=== PATIENT | male | born 1975 | race Two or more races ===

== ENCOUNTER 2020-03-18 08:08 | Outpatient (REF) | payer OTHER, SELFPAY ==
[2020-03-18 10:51] LABS: Alanine Aminotransferase 33 U/L (0-40); Albumin Level 4.5 g/dL (3.5-5.0); Alkaline Phosphatase 72 U/L (39-117); Anion Gap 13 (12-20); Aspartate Amino Transferase 25 U/L (5-37); Bilirubin Total 0.4 mg/dL (0.0-1.0); Blood Urea Nitrogen 17 mg/dL (9-16); Calcium 9.2 mg/dL (8.4-10.2); Carbon Dioxide 29 mmol/L (22-29); Chloride 102 mmol/L (96-108); Cholesterol 111 mg/dL; Estimated Glomerular Filt Rate > 60; Glucose Fasting 100 mg/dL (60-99); HDL Cholesterol 44 mg/dL; LDL Cholesterol Calculated 58 mg/dl; Potassium 4.2 mmol/l (3.3-5.1); Sodium 140 mmol/L (135-145); Total Protein 7.4 g/dL (6.5-8.0); Triglycerides 49 mg/dL
[2020-03-18 10:55] LABS: Vitamin D 25-OH Total 44.6 ng/mL (>30)
[2020-03-18 11:09] LABS: Creatinine Urine 84.64 mg/dL; Microalbum/Creatinine Ratio Ur 8.2 ug/mg cr
== END 2020-03-18 08:09 | disposition home or self-care (01) ==
LOC: HO.LAB 08:08
PROVIDERS: PCP Internal Medicine; Visit Provider Internal Medicine
DX: E78.00 Pure hypercholesterolemia, unspecified (principal); E55.9 Vitamin D deficiency, unspecified; E11.9 Type 2 diabetes mellitus without complications
CPT/HCPCS: 80053; 80061; 82043; 82306

== ENCOUNTER 2020-05-11 12:25 | Outpatient (REF) | payer OTHER, SELFPAY | END 2020-05-11 12:26 | disposition home or self-care (01) | LOC: HO.LAB 12:25 | PROVIDERS: PCP Internal Medicine; Visit Provider Internal Medicine | DX: Z20.822 Contact with and (suspected) exposure to COVID-19 (principal) | CPT/HCPCS: 36415; C9803; U0003 ==

== ENCOUNTER 2020-08-31 11:29 | Outpatient (REF) | payer OTHER, SELFPAY | END 2020-08-31 11:30 | disposition home or self-care (01) | LOC: HO.LAB 11:29 | PROVIDERS: Visit Provider Internal Medicine | DX: Z20.822 Contact with and (suspected) exposure to COVID-19 (principal) | CPT/HCPCS: C9803; U0003; U0005 ==

== ENCOUNTER 2020-09-25 11:03 | Emergency (ER) | payer OTHER, SELFPAY ==
[2020-09-25 11:18] VITALS: BP 141/87; PULSE 96; RESP 18; TEMP 35.9; O2SAT 98; BMI 39.2
--- NOTE | 2020-09-25 11:52 | ED.GENADULT ---
HPI - General Adult General Chief complaint: General Medical Stated complaint: PAIN IN ANUS Time Seen by Provider: 09/25/20 11:52 Source: patient Mode of arrival: ambulatory Limitations: no limitations History of Present Illness HPI narrative: 44 y/o male presenting with hemorrhoidal pain for 6 days. He denies any bleeding. He has tried preparation H without much relief. He has not had a BM in a day and a half an it was painful at the time. His stool was firm. He denies blood streaked stool. He denies abdominal pain, nausea, vomiting. He is passing flatus. MD complaint: hemorrhoids Onset (ago): day(s) (6) Location: buttocks Radiation: non-radiation Severity: moderate Quality: stabbing and sharp Pain Consistency: intermittent Relieving factors: rest Exacerbating factors: other (bowel movement) Associated symptoms: denies other symptoms Treatments prior to arrival: none Related Data Previous Rx's Medication Instructions Recorded albuterol sulfate 90 mcg/actuation 2 puff PO Q6H PRN 30 Days #8.5 g 04/13/20 aerosol inhaler sildenafil 25 mg tablet 25 mg PO DAILY PRN 30 Days #3 tab 06/30/20 pioglitazone 45 mg tablet 45 mg PO DAILY #90 tab 09/12/20 docusate sodium [Colace] 100 mg PO BID #30 cap 09/25/20 hydrocortisone-pramoxine 1 appl MT QID PRN #10 g 09/25/20 [Proctofoam HC] lidocaine 1 appl TOPICAL TID PRN #30 g 09/25/20 polyethylene glycol 3350 [Miralax] 17 g PO DAILY #14 ea 09/25/20 Allergies Allergy/AdvReac Type Severity Reaction Status Date / Time No Known Allergies Allergy Unverified 01/15/20 18:56 [No Known Allergies*] Review of Systems Review of Systems: Constitutional: No Fever, No Chills Gastrointestinal: No Nausea, No Vomiting, No Diarrhea, No abdominal Pain, No Hematochezia, No Melena, +Constipation Genitourinary: No Dysuria, No Urinary Frequency, No Hematuria Musculoskeletal: No joint pain, No Myalgias Skin: + Skin Lesions, No rash Neuro: No Weakness, No Numbness Psych: No Anxiety/Panic, No Depression Heme/Lymph: No Bruising, No Lymphadenopathy PMFSH Past Medical History Attestation statement: The following information was validated with the patient. Medical History Anxiety Diabetes Panic attack Social History Social History Advance Directives: Yes Advance Directives Information Provided: No Advance Directives on File: No Physical Exam Vital Signs: Vital Signs: Last Vital Signs Temp 96.7 F L 09/25/20 11:18 Pulse 96 09/25/20 11:18 Resp 18 09/25/20 11:18 BP 141/87 H 09/25/20 11:18 Pulse Ox 98 09/25/20 11:18 Body Mass Index 39.2 Const: General: cooperative, healthy appearing and comfortable HENMT: Head: Yes normal to inspection Ears: hearing grossly normal bilaterally General nose exam: Normal external nose present Face and sinus: Yes normal facial exam Eyes: General: appearance normal, both eyes and all related structures Neck: Neck: Yes normal visual inspection Chest: Chest palpation & inspection: normal inspection of the chest Resp: Effort & Inspection: normal respiratory effort and able to speak in complete sentences GI: Inspection: Yes normal to inspection and Yes obesity Palpation (GI): Soft to palpation, not firm, nontender and no guarding Percussion: Yes normal to percussion Auscultation: normal bowel sounds Rectal Exam - Male: Yes normal sphincter tone and Yes External hemorrhoid(s) present (tender, no thrombosis, no bleeding) Skin: General skin exam: no rashes or lesions noted Extrem: General: Yes normal to inspection Psych: Appearance: grossly normal and well kempt Course Course Course Narrative: 44 y/o male presenting with hemorrhoidal pain and mild constipation. Exam reveals small external hemorrhoids, tender. No bleeding. Will prescribe proctofoam, topical anesthetic and bowel regimen. Advised on increasing PO hydration and fiber. Encouraged to f/u with PCP and General Sug[facility] if no improvement with conservative measures. Patient is stable for discharge. Discharge Plan Discharge Clinical Impression: Hemorrhoids Qualifiers: Hemorrhoid type: unspecified Qualified Code(s): K64.9 - Unspecified hemorrhoids Patient Disposition: Home, Self-Care Instructions: Hemorrhoids (ED), Sitz Bath (DC) Additional Instructions: Use the prescribed medications for your hemorrhoids. Increase your water and fiber intake. Start Miralax and Colace to help with constipation. Sit in a warm bath with Epsom salts once per day. Recommend following up with General Surgery if you have persistent symptoms. Come back to the ER if you have worsening pain or develop significant bleeding. Prescriptions: New Proctofoam HC 1-1 % foam 1 appl MT QID PRN (Reason: hemorrhoids) Qty: 10 RF: 0 lidocaine 5 % ointment 1 appl topical TID PRN (Reason: pain) Qty: 30 RF: 0 docusate sodium [Colace] 100 mg capsule 100 mg PO BID Qty: 30 RF: 0 polyethylene glycol 3350 [Miralax] 17 gram powder in packet 17 g PO DAILY Qty: 14 RF: 0 No Action albuterol sulfate 90 mcg/actuation HFA aerosol inhaler 2 puff PO Q6H PRN (Reason: bronchospasm) 30 Days Qty: 8.5 RF: 6 sildenafil 25 mg tablet 25 mg PO DAILY PRN (Reason: sexual activity) 30 Days Qty: 3 RF: 3 pioglitazone 45 mg tablet 45 mg PO DAILY Qty: 90 RF: 1 Referrals: Shay Ellison MD [Physician] - 1 week (hemorrhoids )
== END 2020-09-25 12:11 | disposition home or self-care (01) ==
PROVIDERS: Emergency Provider Emergency Medicine Emergency Medical Services; PCP Internal Medicine
DX: K64.9 Unspecified hemorrhoids (principal); K62.89 Other specified diseases of anus and rectum; K59.00 Constipation, unspecified; Z79.899 Other long term (current) drug therapy
CPT/HCPCS: 99283

== ENCOUNTER 2021-04-26 09:23 | Outpatient (REF) | payer OTHER, SELFPAY ==
[2021-04-26 10:44] LABS: COVID-19 Test Negative (Negative); IDNOW Serial# 16C4AD1C
== END 2021-04-26 09:24 | disposition home or self-care (01) ==
LOC: HO.LAB 09:23
PROVIDERS: Visit Provider Internal Medicine
DX: Z20.822 Contact with and (suspected) exposure to COVID-19 (principal)
CPT/HCPCS: 36415; 87635; C9803

== ENCOUNTER 2021-10-10 09:11 | Outpatient (REF) | payer OTHER, SELFPAY ==
[2021-10-10 09:39] LABS: IDNOW Serial# 08D9AD1C
[2021-10-10 09:40] LABS: COVID-19 Test Positive (Negative)
== END 2021-10-10 09:12 | disposition home or self-care (01) ==
LOC: HO.LAB 09:11
PROVIDERS: Visit Provider Internal Medicine
DX: Z20.822 Contact with and (suspected) exposure to COVID-19 (principal)
CPT/HCPCS: 87635; C9803

== ENCOUNTER 2022-05-19 10:20 | Emergency (ER) | payer OTHER, SELFPAY ==
[2022-05-19 10:48] VITALS: BP 155/82; PULSE 105; RESP 18; TEMP 37.3; O2SAT 95; BMI 40.1
[2022-05-19 10:50] LABS: MANUAL DIFF FLAG NO
[2022-05-19 10:53] LABS: Basophils Percent Auto 0.3 % (0-2); Hematocrit 39.5 % (42.0-52.0); Hemoglobin 13.3 g/dl (14.0-18.0); Imm Gran Abs Auto 0.07 X10*3/uL (0.00-0.03); Imm Gran Pct Auto 0.5 % (0.0-0.4); Lymphocytes Absolute Auto 1.5 X10*3/uL (1.2-4.9); Lymphocytes Percent Auto 9.9 % (20-40); Mean Corpuscular HGB Conc 33.7 g/dl (31.0-36.0); Mean Corpuscular Hemoglobin 27.5 pg (27.0-33.0); Mean Corpuscular Volume 81.6 fL (80.0-98.0); Mean Platelet Volume 9.7 fL (9.4-12.4); Monocytes Absolute Auto 0.9 X10*3/uL (0.1-1.2); Monocytes Percent Auto 6.1 % (2-11); Neutrophils Absolute Auto 12.8 x10*3/uL (2.0-8.3); Neutrophils Percent Auto 83.2 % (45-73); Platelet Count 236 X10*3/uL (160-400); Red Blood Count 4.84 X10*6/uL (4.60-5.80); Red Cell Distribution Width 14.5 % (11.0-16.0); White Blood Count 15.4 X10*3/uL (4.8-10.8)
[2022-05-19 10:54] LABS: Appearance Urine Cloudy; Color Urine Dark Yellow; Glucose Urine UA >=1000 mg/dL (Negative); Leukocyte Esterase Urine Moderate (2+) (Negative); Nitrite Urine Positive (Negative); Specific Gravity - Urine >= 1.030 (1.005-1.025); UMIC TRIGGER UACC YES; Urine Blood Small (1+) (Negative); Urine Ketones Trace mg/dL (Negative); Urine Protein 30 (1+) mg/dL (Neg-Trace)
[2022-05-19 11:10] LABS: Bacteria Urine Trace (None Seen); Squamous Epithelial Cell Urine 0-2 /HPF (0-2); UACC Culture Trigger YES; WBC Urine >50 /HPF (0-5)
[2022-05-19 11:18] LABS: Alanine Aminotransferase 63 U/L (0-40); Albumin Level 4.1 g/dL (3.5-5.0); Alkaline Phosphatase 103 U/L (39-117); Anion Gap 14 (12-20); Aspartate Amino Transferase 57 U/L (5-37); Bilirubin Total 0.5 mg/dL (0.0-1.0); Blood Urea Nitrogen 13 mg/dL (9-16); Carbon Dioxide 23 mmol/L (22-29); Chloride 101 mmol/L (96-108); Creatinine Clr Calc Pharmacy 111.4; Estimated Glomerular Filt Rate > 60; Glucose Random 349 mg/dL (60-115); Potassium 3.9 mmol/L (3.3-5.1); Sodium 134 mmol/L (135-145); Total Protein 6.9 g/dL (6.5-8.0)
--- NOTE | 2022-05-19 11:19 | ED.GENADULT ---
HPI - General Adult General Chief complaint: General Medical <SANDY Alonso - Last Filed: 05/19/22 15:26> Stated complaint: pain upon urination <SANDY Alonso Last Filed: 05/19/22 15:26> Time Seen by Provider: 05/19/22 11:17 <SANDY Alonso Last Filed: 05/19/22 15:26> Source: patient <SANDY Alonso Last Filed: 05/19/22 15:26> Mode of arrival: ambulatory <SANDY Alonso Last Filed: 05/19/22 15:26> Limitations: no limitations <SANDY Alonso Last Filed: 05/19/22 15:26> History of Present Illness HPI narrative: 46-year-old male with history of HLD, GERD, obesity, DM, depression, obesity presents to the ER for evaluation of headaches, low back pains and urinary discomfort since last night. He also reports a subjective fever last night and shaking chills. He took Tylenol this morning with improvement. He reports history of UTI in the past. He states this feels similar. He denies any nausea, vomiting, abdominal pain other than suprapubic discomfort and fullness. He states he is dribbling and having increased urinary frequency and urgency. No blood in his urine. No flank pain. <SANDY Alonso - Last Filed: 05/19/22 15:26> MD complaint: Dysuria, fever <SANDY Alonso Last Filed: 05/19/22 15:26> Onset (ago): day(s) (1) <SANDY Alonso - Last Filed: 05/19/22 15:26> Location: back and abdomen <SANDY Alonso Last Filed: 05/19/22 15:26> Radiation: non-radiation <SANDY Alonso Last Filed: 05/19/22 15:26> Severity: moderate <SANDY Alonso Last Filed: 05/19/22 15:26> Severity scale (1-10): 6 <SANDY Alonso Last Filed: 05/19/22 15:26> Pain Consistency: constant <SANDY Alonso - Last Filed: 05/19/22 15:26> Relieving factors: medication <SANDY Alonso Last Filed: 05/19/22 15:26> Exacerbating factors: movement <SANDY Alonso Last Filed: 05/19/22 15:26> Associated symptoms: fever/chills, headaches and malaise <SANDY Alonso Last Filed: 05/19/22 15:26> Treatments prior to arrival: other ( acetaminophen) <SANDY Alonso - Last Filed: 05/19/22 15:26> Related Data Home medications: Home Medications Medication Instructions Recorded Confirmed lorazepam 1 mg tablet 1 mg PO BEDTIME PRN 04/07/20 12/21/21 omeprazole 20 mg capsule,delayed 20 mg PO DAILY 04/07/20 12/21/21 release pioglitazone 45 mg tablet 45 mg PO DAILY 04/07/20 12/21/21 hydroxyzine pamoate 25 mg capsule 25 mg PO BEDTIME 08/03/20 12/21/21 dulaglutide 3 mg/0.5 mL 3 mg subcut QWEEK 12/21/21 12/21/21 subcutaneous pen injector (Trulicity) empagliflozin 10 mg tablet 10 mg PO QAM 12/21/21 12/21/21 (Jardiance) escitalopram oxalate 10 mg tablet 20 mg PO DAILY 12/21/21 12/21/21 Previous Rx's Medication Instructions Recorded albuterol sulfate 90 mcg/actuation 2 puff PO Q6H PRN bronchospasm 30 04/13/20 aerosol inhaler days #8.5 grams sildenafil 25 mg tablet 25 mg PO DAILY PRN sexual activity 06/30/20 30 days #3 tabs docusate sodium 100 mg capsule 100 mg PO BID #30 caps 09/25/20 (Colace) hydrocortisone 1 %-pramoxine 1 % 1 appl [place] QID PRN hemorrhoids #10 09/25/20 rectal foam (Proctofoam HC) grams lidocaine 5 % topical ointment 1 appl topical TID PRN pain #30 09/25/20 grams polyethylene glycol 3350 17 gram 17 g PO DAILY #14 ea 09/25/20 oral powder packet (Miralax) insulin syringe-needle U-100 0.5 0.5 ml miscellaneous DAILY 90 days 10/14/20 mL 31 gauge x 5/16 (BD Insulin #90 ea Syringe Ultra-Fine) atorvastatin 40 mg tablet 40 mg PO DAILY 90 days #90 tabs 01/15/22 insulin glargine 100 unit/mL 20 unit (0.2 mL) subcut DAILY 90 01/15/22 subcutaneous solution (Lantus days #18 mL U-100 Insulin) pioglitazone 45 mg tablet 45 mg PO DAILY #90 tabs 01/15/22 cefuroxime axetil 250 mg tablet 250 mg PO BID 10 days #20 tabs 05/19/22 <SANDY Alonso - Last Filed: 05/19/22 15:26> Allergies/adverse reactions: Allergies Allergy/AdvReac Type Severity Reaction Status Date / Time shellfish derived Allergy Severe ANAPHYLAXIS Verified 05/04/22 12:35 [SHELLFISH DERIVED] metformin AdvReac Intermediate diarrhea Verified 05/04/22 12:35 <SANDY Alonso - Last Filed: 05/19/22 15:26> Review of Systems Review of Systems: Yes all other systems are reviewed and are negative <SANDY Alonso - Last Filed: 05/19/22 15:26> [facility] Past Medical History Medical History: Medical History (Updated 05/19/22 @ 14:59 by SANDY Alonso) Anxiety Depression with anxiety Diabetes Diabetes mellitus GERD (gastroesophageal reflux disease) Hypovitaminosis D Mild recurrent major depression Morbid obesity Panic attack Pure hypercholesterolemia <SANDY Alonso - Last Filed: 05/19/22 15:26> Surgical History: Surgical History (System 05/04/22 @ 12:35 by Gilda Martinez) H/O eye surgery No pertinent past surgical history <SANDY Alonso - Last Filed: 05/19/22 15:26> Family History Family History: Family History (System 05/04/22 @ 12:35 by Gilda Martinez) Father Diabetes Hypertension CVD (cardiovascular disease) Mother Anxiety Diabetes Maternal Grandmother Cancer Paternal Uncle Diabetes Stroke Paternal Aunt Diabetes Maternal Grandmother Liver cancer Family/Other FH: mental illness Mental health disorder <SANDY Alonso - Last Filed: 05/19/22 15:26> Social History Social History: Social History (System 05/04/22 @ 12:35 by Gilda Martinez) Housing: Apartment Alcohol intake: current Alcohol intake frequency: holidays/special occasions only Alcohol type: beer Patient Tobacco Use Status: Former Tobacco user Tobacco use type: Cigarette e-Cigarette/Vaping Use: Never Used Second Hand Smoke Exposure: No Advance Directives: No service: No Current occupational status: employed Cognitive needs: No Hearing needs: No Vision needs: Yes <SANDY Alonso - Last Filed: 05/19/22 15:26> Physical Exam ED Vital Signs: Vital Signs - 24 hr 05/19/22 10:48 05/19/22 12:46 05/19/22 15:02 Temperature 99.1 F 98.2 F 98.9 F Pulse Rate 105 H 94 97 Respiratory Rate 18 18 13 Blood Pressure 155/82 H 140/81 H 132/80 Pulse Oximetry 95 97 99 Oxygen Delivery Method Room Air Room Air Room Air BMI result Body Mass Index 40.1 <SANDY Alonso - Last Filed: 05/19/22 15:26> Vital Signs - 24 hr 05/19/22 10:48 05/19/22 12:46 05/19/22 15:02 Temperature 99.1 F 98.2 F 98.9 F Pulse Rate 105 H 94 97 Respiratory Rate 18 18 13 Blood Pressure 155/82 H 140/81 H 132/80 Pulse Oximetry 95 97 99 Oxygen Delivery Method Room Air Room Air Room Air BMI result Body Mass Index 40.1 <Esteban Goode MD - Last Filed: 05/19/22 16:25> Appearance: Alert. Oriented X3. No acute distress. Eyes: Pupils equal, round and reactive to light. ENT: Pharynx normal. Neck: Normal inspection. Neck supple. CVS: Normal heart rate and rhythm. Pulses normal. Respiratory: No respiratory distress. Breath sounds normal. Abdomen: Soft with suprapubic tenderness only, no rebound or guarding. Normal active +BS x4. no CVA tenderness. Skin: Skin warm and dry. Normal skin color. Normal skin turgor. No rashes. Extremities: No lower extremity edema. Neuro: Oriented X 3. No motor deficit. No sensory deficit. <SANDY Alonso - Last Filed: 05/19/22 15:26> Course Course Course Narrative: 46-year-old male presents to the ER for evaluation of dysuria, headache, fever. Symptoms started last night. On arrival to the ER he has a low-grade fever and mild tachycardia, heart rate 100s. He denies any shortness of breath or chest pain. Concern for possible UTI. Will check urinalysis, lab workup. <SANDY Alonso - Last Filed: 05/19/22 15:26> Reevaluation(s) Reevaluation #1: Urinalysis is grossly positive for infection. He has a leukocytosis of 15.4. Will check lactic acid and cultures. He is hemodynamically stable. Heart rates now in the 90s with some IV fluids going. He feels better with fluids. No vomiting or diarrhea. <SANDY Alonso - Last Filed: 05/19/22 15:26> Reevaluation #2: Patient feeling much better he would like to go home. We discussed his blood results with elevated white blood cell count an active UTI. He has no evidence of pyelonephritis or severe sepsis. he would like to be discharged home with oral antibiotics. He was given strict return precautions. Will give antibiotics for 10 days. Stable for DC. <SANDY Alonso - Last Filed: 05/19/22 15:26> Medications Administered Discontinued Medications Generic Name Dose Route Start Last Admin Trade Name Freq PRN Reason Stop Dose Admin Acetaminophen 975 mg 05/19/22 11:19 05/19/22 11:33 Acetaminophen 325 Mg Tablet PO 05/19/22 11:20 Not Given ONCE ONE Sodium Chloride 1,000 mls @ 999 mls/hr 05/19/22 11:30 05/19/22 12:47 Ns IVCONT 05/19/22 12:30 Infused .Q1H1M SABINE Infusion Ceftriaxone Sodium 1 gm/ 50 mls @ 100 mls/hr 05/19/22 11:18 05/19/22 12:09 Sodium Chloride IV 05/19/22 11:47 Infused ONCE ONE Infusion Sodium Chloride 1,000 mls @ 999 mls/hr 05/19/22 13:00 05/19/22 13:55 Ns IVCONT 05/19/22 14:00 Infused .Q1H1M SABINE Infusion <SANDY Alonso - Last Filed: 05/19/22 15:26> Medications Administered Discontinued Medications Generic Name Dose Route Start Last Admin Trade Name Will PRN Reason Stop Dose Admin Acetaminophen 975 mg 05/19/22 11:19 05/19/22 11:33 Acetaminophen 325 Mg Tablet PO 05/19/22 11:20 Not Given ONCE ONE Sodium Chloride 1,000 mls @ 999 mls/hr 05/19/22 11:30 05/19/22 12:47 Ns IVCONT 05/19/22 12:30 Infused .Q1H1M SABINE Infusion Ceftriaxone Sodium 1 gm/ 50 mls @ 100 mls/hr 05/19/22 11:18 05/19/22 12:09 Sodium Chloride IV 05/19/22 11:47 Infused ONCE ONE Infusion Sodium Chloride 1,000 mls @ 999 mls/hr 05/19/22 13:00 05/19/22 13:55 Ns IVCONT 05/19/22 14:00 Infused .Q1H1M SABINE Infusion <Esteban Goode MD - Last Filed: 05/19/22 16:25> Medical Decision Making Differential Diagnosis Differential Diagnoses: The differential diagnosis associated with the presentation includes <SANDY Alonso - Last Filed: 05/19/22 15:26> Lower UTI, pyelonephritis, kidney stone, viral syndrome, diverticulitis, COVID, flu <SANDY Alonso - Last Filed: 05/19/22 15:26> Admission/Observation Consideration of admission/observation: Escalation of care including admission/observation considered <SANDY Alonso - Last Filed: 05/19/22 15:26> patient nontoxic, afebrile, tolerating p.o. and feels much better. He would like to be discharged home. <SANDY Alonso - Last Filed: 05/19/22 15:26> Lab Data MDM Lab Attestation statement: I reviewed the patient's lab results. <SANDY Alonso - Last Filed: 05/19/22 15:26> Leukocytosis of 15.4, hyperglycemia 06/02/2048, most likely due to stress and infection. No anion gap for evidence of DKA. Stable anemia. <SANDY Alonso - Last Filed: 05/19/22 15:26> Result Diagrams: 05/19/22 10:45 05/19/22 10:45 <SANDY Alonso - Last Filed: 05/19/22 15:26> Labs: Lab Results 05/19/22 05/19/22 05/19/22 Range/Units 10:45 10:45 10:45 WBC 15.4 H (4.8-10.8) X10*3/uL RBC 4.84 (4.60-5.80) X10*6/uL Hgb 13.3 L (14.0-18.0) g/dl Hct 39.5 L (42.0-52.0) % MCV 81.6 (80.0-98.0) fL MCH 27.5 (27.0-33.0) pg MCHC 33.7 (31.0-36.0) g/dl RDW 14.5 (11.0-16.0) % Plt Count 236 (160-400) X10*3/uL MPV 9.7 (9.4-12.4) fL Immature Gran % (Auto) 0.5 H (0.0-0.4) % Neut % (Auto) 83.2 H (45-73) % Lymph % (Auto) 9.9 L (20-40) % [place] % (Auto) 6.1 (2-11) % Eos % (Auto) 0.0 (0-4) % Baso % (Auto) 0.3 (0-2) % Lymph # (Auto) 1.5 (1.2-4.9) X10*3/uL [place] # (Auto) 0.9 (0.1-1.2) X10*3/uL Eos # (Auto) 0.0 (0.0-0.4) X10*3/uL Baso # (Auto) 0.0 (0.0-0.2) X10*3/uL Abs Immat Gran (auto) 0.07 H (0.00-0.03) X10*3/uL Absolute Neuts (auto) 12.8 H (2.0-8.3) x10*3/uL Absolute Nucleated RBC 0.000 (0.0-0.012) X10*3/uL Nucleated RBC % (auto) 0.0 (0.0-0.2) /100WBC Sodium 134 L (135-145) mmol/L Potassium 3.9 (3.3-5.1) mmol/L Chloride 101 (96-108) mmol/L Carbon Dioxide 23 (22-29) mmol/L Anion Gap 14 (12-20) BUN 13 (9-16) mg/dL Creatinine 1.12 (0.5-1.4) mg/dL Estim Creat Clear Calc 111.4 Estimated GFR > 60 Random Glucose 349 H (60-115) mg/dL Lactic Acid (0.5-2.0) mmol/L Calcium 9.0 (8.4-10.2) mg/dL Total Bilirubin 0.5 (0.0-1.0) mg/dL AST 57 H (5-37) U/L ALT 63 H (0-40) U/L Alkaline Phosphatase 103 (39-117) U/L Total Protein 6.9 (6.5-8.0) g/dL Albumin 4.1 (3.5-5.0) g/dL Urine Color Dark Yellow Urine Appearance Cloudy Urine pH 5.0 (5.0-9.0) Ur Specific [place] >= 1.030 H (1.005-1.025) Urine Protein 30 (1+) H (Neg-Trace) mg/dL Urine Glucose (UA) >=1000 H (Negative) mg/dL Urine Ketones Trace (Negative) mg/dL Urine Blood Small (1+) H (Negative) Urine Nitrite Positive H (Negative) Ur Leukocyte Esterase Moderate (2+) H (Negative) Urine RBC 6-10 H (0-2) /HPF Urine WBC >50 H (0-5) /HPF Ur Squamous Epith Cells 0-2 (0-2) /HPF Urine Bacteria Trace (None Seen) Hyaline Casts 3-5 (0-2) /LPF 05/19/22 Range/Units 11:24 WBC (4.8-10.8) X10*3/uL RBC (4.60-5.80) X10*6/uL Hgb (14.0-18.0) g/dl Hct (42.0-52.0) % MCV (80.0-98.0) fL MCH (27.0-33.0) pg MCHC (31.0-36.0) g/dl RDW (11.0-16.0) % Plt Count (160-400) X10*3/uL MPV (9.4-12.4) fL Immature Gran % (Auto) (0.0-0.4) % Neut % (Auto) (45-73) % Lymph % (Auto) (20-40) % [place] % (Auto) (2-11) % Eos % (Auto) (0-4) % Baso % (Auto) (0-2) % Lymph # (Auto) (1.2-4.9) X10*3/uL [place] # (Auto) (0.1-1.2) X10*3/uL Eos # (Auto) (0.0-0.4) X10*3/uL Baso # (Auto) (0.0-0.2) X10*3/uL Abs Immat Gran (auto) (0.00-0.03) X10*3/uL Absolute Neuts (auto) (2.0-8.3) x10*3/uL Absolute Nucleated RBC (0.0-0.012) X10*3/uL Nucleated RBC % (auto) (0.0-0.2) /100WBC Sodium (135-145) mmol/L Potassium (3.3-5.1) mmol/L Chloride (96-108) mmol/L Carbon Dioxide (22-29) mmol/L Anion Gap (12-20) BUN (9-16) mg/dL Creatinine (0.5-1.4) mg/dL Estim Creat Clear Calc Estimated GFR Random Glucose (60-115) mg/dL Lactic Acid 1.9 (0.5-2.0) mmol/L Calcium (8.4-10.2) mg/dL Total Bilirubin (0.0-1.0) mg/dL AST (5-37) U/L ALT (0-40) U/L Alkaline Phosphatase (39-117) U/L Total Protein (6.5-8.0) g/dL Albumin (3.5-5.0) g/dL Urine Color Urine Appearance Urine pH (5.0-9.0) Ur Specific [place] (1.005-1.025) Urine Protein (Neg-Trace) mg/dL Urine Glucose (UA) (Negative) mg/dL Urine Ketones (Negative) mg/dL Urine Blood (Negative) Urine Nitrite (Negative) Ur Leukocyte Esterase (Negative) Urine RBC (0-2) /HPF Urine WBC (0-5) /HPF Ur Squamous Epith Cells (0-2) /HPF Urine Bacteria (None Seen) Hyaline Casts (0-2) /LPF <SANDY Alonso - Last Filed: 05/19/22 15:26> Lab Results 05/19/22 05/19/22 05/19/22 Range/Units 10:45 10:45 10:45 WBC 15.4 H (4.8-10.8) X10*3/uL RBC 4.84 (4.60-5.80) X10*6/uL Hgb 13.3 L (14.0-18.0) g/dl Hct 39.5 L (42.0-52.0) % MCV 81.6 (80.0-98.0) fL MCH 27.5 (27.0-33.0) pg MCHC 33.7 (31.0-36.0) g/dl RDW 14.5 (11.0-16.0) % Plt Count 236 (160-400) X10*3/uL MPV 9.7 (9.4-12.4) fL Immature Gran % (Auto) 0.5 H (0.0-0.4) % Neut % (Auto) 83.2 H (45-73) % Lymph % (Auto) 9.9 L (20-40) % [place] % (Auto) 6.1 (2-11) % Eos % (Auto) 0.0 (0-4) % Baso % (Auto) 0.3 (0-2) % Lymph # (Auto) 1.5 (1.2-4.9) X10*3/uL [place] # (Auto) 0.9 (0.1-1.2) X10*3/uL Eos # (Auto) 0.0 (0.0-0.4) X10*3/uL Baso # (Auto) 0.0 (0.0-0.2) X10*3/uL Abs Immat Gran (auto) 0.07 H (0.00-0.03) X10*3/uL Absolute Neuts (auto) 12.8 H (2.0-8.3) x10*3/uL Absolute Nucleated RBC 0.000 (0.0-0.012) X10*3/uL Nucleated RBC % (auto) 0.0 (0.0-0.2) /100WBC Sodium 134 L (135-145) mmol/L Potassium 3.9 (3.3-5.1) mmol/L Chloride 101 (96-108) mmol/L Carbon Dioxide 23 (22-29) mmol/L Anion Gap 14 (12-20) BUN 13 (9-16) mg/dL Creatinine 1.12 (0.5-1.4) mg/dL Estim Creat Clear Calc 111.4 Estimated GFR > 60 Random Glucose 349 H (60-115) mg/dL Lactic Acid (0.5-2.0) mmol/L Calcium 9.0 (8.4-10.2) mg/dL Total Bilirubin 0.5 (0.0-1.0) mg/dL AST 57 H (5-37) U/L ALT 63 H (0-40) U/L Alkaline Phosphatase 103 (39-117) U/L Total Protein 6.9 (6.5-8.0) g/dL Albumin 4.1 (3.5-5.0) g/dL Urine Color Dark Yellow Urine Appearance Cloudy Urine pH 5.0 (5.0-9.0) Ur Specific [place] >= 1.030 H (1.005-1.025) Urine Protein 30 (1+) H (Neg-Trace) mg/dL Urine Glucose (UA) >=1000 H (Negative) mg/dL Urine Ketones Trace (Negative) mg/dL Urine Blood Small (1+) H (Negative) Urine Nitrite Positive H (Negative) Ur Leukocyte Esterase Moderate (2+) H (Negative) Urine RBC 6-10 H (0-2) /HPF Urine WBC >50 H (0-5) /HPF Ur Squamous Epith Cells 0-2 (0-2) /HPF Urine Bacteria Trace (None Seen) Hyaline Casts 3-5 (0-2) /LPF 05/19/22 Range/Units 11:24 WBC (4.8-10.8) X10*3/uL RBC (4.60-5.80) X10*6/uL Hgb (14.0-18.0) g/dl Hct (42.0-52.0) % MCV (80.0-98.0) fL MCH (27.0-33.0) pg MCHC (31.0-36.0) g/dl RDW (11.0-16.0) % Plt Count (160-400) X10*3/uL MPV (9.4-12.4) fL Immature Gran % (Auto) (0.0-0.4) % Neut % (Auto) (45-73) % Lymph % (Auto) (20-40) % [place] % (Auto) (2-11) % Eos % (Auto) (0-4) % Baso % (Auto) (0-2) % Lymph # (Auto) (1.2-4.9) X10*3/uL [place] # (Auto) (0.1-1.2) X10*3/uL Eos # (Auto) (0.0-0.4) X10*3/uL Baso # (Auto) (0.0-0.2) X10*3/uL Abs Immat Gran (auto) (0.00-0.03) X10*3/uL Absolute Neuts (auto) (2.0-8.3) x10*3/uL Absolute Nucleated RBC (0.0-0.012) X10*3/uL Nucleated RBC % (auto) (0.0-0.2) /100WBC Sodium (135-145) mmol/L Potassium (3.3-5.1) mmol/L Chloride (96-108) mmol/L Carbon Dioxide (22-29) mmol/L Anion Gap (12-20) BUN (9-16) mg/dL Creatinine (0.5-1.4) mg/dL Estim Creat Clear Calc Estimated GFR Random Glucose (60-115) mg/dL Lactic Acid 1.9 (0.5-2.0) mmol/L Calcium (8.4-10.2) mg/dL Total Bilirubin (0.0-1.0) mg/dL AST (5-37) U/L ALT (0-40) U/L Alkaline Phosphatase (39-117) U/L Total Protein (6.5-8.0) g/dL Albumin (3.5-5.0) g/dL Urine Color Urine Appearance Urine pH (5.0-9.0) Ur Specific [place] (1.005-1.025) Urine Protein (Neg-Trace) mg/dL Urine Glucose (UA) (Negative) mg/dL Urine Ketones (Negative) mg/dL Urine Blood (Negative) Urine Nitrite (Negative) Ur Leukocyte Esterase (Negative) Urine RBC (0-2) /HPF Urine WBC (0-5) /HPF Ur Squamous Epith Cells (0-2) /HPF Urine Bacteria (None Seen) Hyaline Casts (0-2) /LPF <Esteabn Goode MD - Last Filed: 05/19/22 16:25> Independent Historian Clinical information obtained from an independent historian. History obtained from or confirmed by: Other (family member at the bedside) <SANDY Alonso - Last Filed: 05/19/22 15:26> External Record Review External record reviewed: Outpatient record <SANDY Alonso - Last Filed: 05/19/22 15:26> Tests considered The following testing was considered but not selected: CT scan considered - no clinical evidence of pyelo or infected stone <SANDY Alonso Last Filed: 05/19/22 15:26> Prescription Management I considered prescription management with: Pain Medication and Antibiotic <SANDY Alonso Last Filed: 05/19/22 15:26> Chronic Conditions Patient?s care impacted by: Hypertension and Other (DM) <SANDY Alonso - Last Filed: 05/19/22 15:26> Attestation Attending Attestation: I personally reviewed PA/resident/nurse practitioner note. I reviewed a all results and treatment plan. I agree with the assessment and plan. I agree with disposition <Esteban Goode MD - Last Filed: 05/19/22 16:25> Discharge Plan Discharge Clinical Impression: Acute UTI <SANDY Alonso - Last Filed: 05/19/22 15:26> Patient Disposition: Home, Self-Care <SANDY Alonso Last Filed: 05/19/22 15:26> Instructions: Urinary Tract Infection in Men (ED) <SANDY Alonso - Last Filed: 05/19/22 15:26> Additional Instructions: Your are being treated for a UTI. Take the prescribed antibiotic as directed. Take her 1st dose tonight. Your given 1st dose IV in the ER today. Rest and drink plenty of water. Take Motrin and Tylenol as needed for body aches and fevers. If you develop new or worsening symptoms call 911 or come back to the ER for further evaluation. <SANDY Alonso - Last Filed: 05/19/22 15:26> Prescriptions: New cefuroxime axetil 250 mg tablet 250 mg PO BID 10 Days Qty: 20 0RF No Action albuterol sulfate 90 mcg/actuation HFA aerosol inhaler 2 puff PO Q6H PRN (Reason: bronchospasm) 30 Days Qty: 8.5 6RF sildenafil 25 mg tablet 25 mg PO DAILY PRN (Reason: sexual activity) 30 Days Qty: 3 3RF Rx Instructions: administer 30 minutes to 4 hours before activity insulin syringe-needle U-100 [BD Insulin Syringe Ultra-Fine] 0.5 mL 31 gauge x 5/16 syringe 0.5 ml miscellaneous DAILY 90 Days Qty: 90 3RF insulin glargine [Lantus U-100 Insulin] 100 unit/mL solution 20 unit subcut DAILY 90 Days Qty: 18 1RF atorvastatin 40 mg tablet 40 mg PO DAILY 90 Days Qty: 90 3RF pioglitazone 45 mg tablet 45 mg PO DAILY Qty: 90 1RF Proctofoam HC 1-1 % foam 1 appl [place] QID PRN (Reason: hemorrhoids) Qty: 10 0RF lidocaine 5 % ointment 1 appl topical TID PRN (Reason: pain) Qty: 30 0RF docusate sodium [Colace] 100 mg capsule 100 mg PO BID Qty: 30 0RF polyethylene glycol 3350 [Miralax] 17 gram powder in packet 17 g PO DAILY Qty: 14 0RF hydroxyzine pamoate 25 mg capsule 25 mg PO BEDTIME Trulicity 3 mg/0.5 mL pen injector 3 mg subcut QWEEK Jardiance 10 mg tablet 10 mg PO QAM omeprazole 20 mg capsule,delayed release(DR/EC) 20 mg PO DAILY lorazepam 1 mg tablet 1 mg PO BEDTIME PRN pioglitazone 45 mg tablet 45 mg PO DAILY escitalopram oxalate 10 mg tablet 20 mg PO DAILY <SANDY Alonso - Last Filed: 05/19/22 15:26> Referrals: Kymberly Ling MD [Primary Care Provider] - ([facility]) <SANDY Alonso - Last Filed: 05/19/22 15:26> Interventions: ED Discharge Assessment Last Done: 05/19/22 15:16 <SANDY Alonso - Last Filed: 05/19/22 15:26> Discharge Date/Time: 05/19/22 15:16 <SANDY Alonso - Last Filed: 05/19/22 15:26>
[2022-05-19] MEDS: 0.9 % Sodium Chloride 1,000 ML 999 ML IVCONT ×2 (11:33→13:00)
[2022-05-19] MEDS: cefTRIAXone sodium 1 GM in 0.9 % Sodium Chloride 50 ML IV (11:33)
[2022-05-19 11:52] LABS: Lactic Acid 1.9 mmol/L (0.5-2.0)
--- NOTE | 2022-05-19 12:14 | PC.NURSE ---
Spoke with PA will hold off on blood cultures will CTM patient tolerated IVF and IV ABX
[2022-05-19 12:46] VITALS: BP 140/81; PULSE 94; RESP 18; TEMP 36.8; O2SAT 97
--- NOTE | 2022-05-19 14:04 | PC.NURSE ---
Patient tolerated 2nd L of IVF with no adverse effects will CTM awaiting dispo.
[2022-05-19 15:02] VITALS: BP 132/80; PULSE 97; RESP 13; TEMP 37.2; O2SAT 99
== END 2022-05-19 15:16 | disposition home or self-care (01) ==
PROVIDERS: Physician Assistant; Emergency Provider Emergency Medicine; PCP Internal Medicine
DX: N39.0 Urinary tract infection, site not specified (principal); R51.9 Headache, unspecified; R30.0 Dysuria; R50.9 Fever, unspecified
CPT/HCPCS: 36415; 80053; 81001; 83605; 85025; 87040; 87086; 87088; 87186; 96361; 96365; 99283; 99284; J0696

== ENCOUNTER → 2022-07-19 10:47 | Outpatient (REF) | payer OTHER, SELFPAY | LOC: HO.SL 10:47 | PROVIDERS: PCP Internal Medicine; Visit Provider Internal Medicine | DX: G47.33 Obstructive sleep apnea (adult) (pediatric) (principal); R40.0 Somnolence | CPT/HCPCS: 95806 ==

== ENCOUNTER 2022-08-01 10:13 | Outpatient (REF) | payer OTHER, SELFPAY ==
--- NOTE | ~2022-08-01 | XR_ITS ---
EXAMINATION: XR HAND, RIGHT CLINICAL INFORMATION: Right hand pain and numbness, diffuse. COMPARISON: None available. TECHNIQUE: PA, lateral, and oblique views of the right hand. FINDINGS: The bones and soft tissues appear unremarkable. No fracture identified. Alignment is anatomic. Joint spaces are maintained. No erosions or soft tissue calcifications. XR/XR hand RT min 3V IMPRESSION: Normal plain film examination of the right hand.
== END 2022-08-01 10:14 | disposition home or self-care (01) ==
LOC: HO.HOSX 10:13
PROVIDERS: Visit Provider Physician Assistant
DX: M79.641 Pain in right hand (principal)
CPT/HCPCS: 73130; 99202

== ENCOUNTER 2022-09-21 11:34 | Outpatient (REF) | payer OTHER, SELFPAY ==
--- NOTE | 2022-09-21 08:15 | EMG_ITS ---
Right median and ulnar motor and sensory studies were performed. Right radial sensory study was performed and paraspinal muscles were tested. IMPRESSION: Mild to moderate right median neuropathy across carpal tunnel. MD SUNG Mendoza/BELLA / [id number]
== END 2022-09-21 11:35 | disposition home or self-care (01) ==
LOC: HO.NEURO 11:34
PROVIDERS: PCP Internal Medicine; Visit Provider Physician Assistant
DX: M79.641 Pain in right hand (principal); G56.01 Carpal tunnel syndrome, right upper limb
CPT/HCPCS: 95886; 95909

== ENCOUNTER → 2022-11-03 11:05 | Outpatient (BNVA) | payer OTHER, SELFPAY | PROVIDERS: Visit Provider Orthopaedic Surgery | DX: G56.01 Carpal tunnel syndrome, right upper limb (principal); R20.0 Anesthesia of skin; E11.65 Type 2 diabetes mellitus with hyperglycemia; Z79.4 Long term (current) use of insulin | CPT/HCPCS: 99212 ==

== ENCOUNTER 2022-11-15 08:05 | Outpatient (AMB) | payer OTHER, SELFPAY ==
[2022-11-15 08:10] VITALS: BP 130/82; BMI 42.3
--- NOTE | 2022-11-15 08:10 | A.OFFPC_ITS ---
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 Required: No Accompanied by: Self / Same As Patient Allergies shellfish derived [SHELLFISH DERIVED] Allergy (Severe, Verified 11/15/22 08:26) ANAPHYLAXIS metformin Adverse Reaction (Intermediate, Verified 11/15/22 08:26) diarrhea Medication List - Last Reconciled 11/15/22 by Kymberly Fernandez MD atorvastatin 40 mg PO DAILY 90 days CPAP (CPAP Machine/Device) autoPAP mode 6-20 cmH2O docusate sodium (Colace) 100 mg PO BID dulaglutide (Trulicity) 3 mg subcut QWEEK escitalopram oxalate 30 mg PO DAILY hydroxyzine pamoate 25 mg PO BEDTIME insulin glargine (Lantus U-100 Insulin) 20 units (0.2 mL) subcut DAILY 90 days insulin syringe-needle U-100 (BD Insulin Syringe Ultra-Fine) 0.5 mL miscellaneous DAILY 90 days lorazepam 1 mg PO BEDTIME PRN pioglitazone 45 mg PO DAILY Ventolin HFA 90 mcg/actuation (albuterol sulfate) 2 puffs inhalation Q6H PRN NS Tobacco use date assessed: 07/03/22 Dental Screening Dental Screen Date: 11/15/22 Did you have a dental visit in the last 12 months?: Yes Did you have a dental problem in the last 6 months where you did not have access to dental care?: No Was dental information given to patient?: Patient has dentist HPI HPI Comments History of Present Illness Details This is a 46-year-old male with diabetes mellitus type 2 on long-term current use of insulin, pure hypercholesterolemia, mild recurrent major depression and morbid obesity that comes today for follow-up on his conditions. A1c elevated and I will increase insulin from 20 units to 22 units. Lipid panel was order and his LDL goal should be less than 70. Depression is follow by Psychiatry and has been stable. He is morbidly obese with a BMI of 42.3 and was advised to diet and exercise as tolerated to reach BMI goal less than 30. [facility] Medical History Anxiety Depression with anxiety Diabetes Diabetes mellitus GERD (gastroesophageal reflux disease) Hypovitaminosis D Mild recurrent major depression Morbid obesity Panic attack Pure hypercholesterolemia Surgical History H/O eye surgery Family History Father Diabetes Hypertension CVD (cardiovascular disease) Mother Anxiety Diabetes Maternal Grandmother Cancer Paternal Uncle Diabetes Stroke Paternal Aunt Diabetes Maternal Grandmother Liver cancer Family/Other FH: mental illness Mental health disorder Social History Housing: Apartment Alcohol intake: current Alcohol intake frequency: holidays/special occasions only Alcohol type: beer Patient Tobacco Use Status: Former Tobacco user Tobacco use type: Cigarette e-Cigarette/Vaping Use: Never Used Second Hand Smoke Exposure: No service: No Current occupational status: employed 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 Nestor Amezcua, Cheryl Rosa, Martinez Cee and colleagues, with an educational mary from [employer]. Review of Systems Const All systems reviewed & are unremarkable except as noted in HPI and below Eyes Reports no additional complaints, Denies change in vision and Denies other visual disturbances Card Denies chest pain at rest, Denies chest pain with activity, Denies edema, Denies irregular heart rhythm, Denies claudication, Denies dyspnea, Denies dyspnea on exertion, Denies orthopnea, Denies paroxysmal nocturnal dyspnea and Denies slow heart rate Resp Denies cough, Denies dyspnea and Denies dyspnea on exertion GI Denies abdominal pain, Denies change in bowel habits, Denies excessive flatus, Denies nausea and Denies vomiting Denies urinary hesitancy, Denies urinary incontinence and Denies urinary urgency Musc Denies abnormal gait, Denies atrophy, Denies deformity and Denies limited range of motion Skin/Breast Denies bleeding lesions, Denies changing lesions and Denies rash Neuro Denies abnormal gait and Denies lack of coordination Physical exam (Primary Care) Vital Signs: Last Vital Signs BP 130/82 11/15/22 08:10 BMI result Body Mass Index 42.3 Tobacco/Smoking Status: Tobacco use Status Tobacco use date assessed 07/03/22 11/15/22 08:17 Patient Tobacco Use Status Former Tobacco user 11/15/22 08:17 Tobacco use type Cigarette 11/15/22 08:17 e-Cigarette/Vaping Use Never Used 11/15/22 08:17 Thrive Assessment: Date of Thrive Assessment Date Thrive assessed 07/03/22 11/15/22 08:17 Eyes General: appearance normal, both eyes and all related structures Eyelids: Yes eyelids normal Conjunctivae: conjunctivae normal Neck Neck: Yes normal visual inspection and Yes supple Resp Effort & Inspection: normal respiratory effort Auscultation: clear to auscultation bilaterally Cardio Jugular venous distension: no JVD Rate: regular rate Rhythm: regular rhythm Heart sounds: S1 normal heart sound present and S2 normal heart sound present Extrem General: Yes full ROM Results AMB Hemoglobin A1c AMB Hemoglobin A1c 8.3 % Last Edit by SARANYA Berry on 11/15/22 08:2 1 Results Reviewed Results Reviewed: Laboratory Last Values Hgb A1c (Clinic) 8.3 % (4.0-6.0) H 11/15/22 08:18 Assessment and Plan Assessment & Plan (1) Diabetes mellitus: Code(s): E11.9 - Type 2 diabetes mellitus without complications Qualifiers: Diabetes mellitus type: type 2 Diabetes mellitus mcc insulin use: with terminal make up operator use Diabetes mellitus complication status: with hyperglycemia Qualified Code(s): E11.65 - Type 2 diabetes mellitus with hyperglycemia; Z79.4 - custodial (current) use of insulin Plan: Increase insulin from 20 units to 22 units once a day. A1c goal is equal or less than 7%. (2) Pure hypercholesterolemia: Code(s): E78.00 - Pure hypercholesterolemia, unspecified Plan: Continue statins. Repeat lipid panel. LDL goal is less than 70. (3) Morbid obesity: Code(s): E66.01 - Morbid (severe) obesity due to excess calories Plan: Declines weight loss surgery. Start diet and exercise. BMI goal is less than 30. (4) Mild recurrent major depression: Code(s): F33.0 - Major depressive disorder, recurrent, mild Plan: Continue escitalopram. Follow-up with psychiatry. Orders: Orders Vitamin B12 and Folate Today E53.8 - Deficiency of other specified B group vitamins Comprehensive [place]. 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 IRON PROFILE Today D64.9 - Anemia, unspecified Lipid Panel Today E78.5 - Hyperlipidemia, unspecified Vitamin D 25-OH Total Today E55.9 - Vitamin D deficiency, unspecified Microalbumin, Random (w Creat) Today E11.9 - Type 2 diabetes mellitus without complications Complete Blood Count Auto Diff Today D64.9 - Anemia, unspecified AMB Hemoglobin A1c Today E11.9 - Type 2 diabetes mellitus without complications Medications: Changed From insulin glargine (Lantus U-100 Insulin) 20 units (0.2 mL) subcut DAILY 90 days 18 mL 1RF E11.65 - Type 2 diabetes mellitus with hyperglycemia, Z79.4 - custodial (current) use of insulin To insulin glargine (Lantus U-100 Insulin) 22 units (0.22 mL) subcut DAILY 19.8 mL 1RF 90 days E11.65 - Type 2 diabetes mellitus with hyperglycemia, 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
== END 2022-11-15 08:33 | disposition home or self-care (01) ==
PROVIDERS: PCP Internal Medicine; Visit Provider Internal Medicine
DX: E11.65 Type 2 diabetes mellitus with hyperglycemia (principal); Z79.4 Long term (current) use of insulin; E66.01 Morbid (severe) obesity due to excess calories; Z68.41 Body mass index [BMI] 40.0-44.9, adult; E78.00 Pure hypercholesterolemia, unspecified; F33.0 Major depressive disorder, recurrent, mild
CPT/HCPCS: 83036; 99214

== ENCOUNTER 2022-11-22 08:08 | Outpatient (REF) | payer OTHER, SELFPAY ==
[2022-11-22 08:30] LABS: MANUAL DIFF FLAG NO
[2022-11-22 10:17] LABS: Basophils Percent Auto 0.6 % (0-2); Eosinophils Absolute Auto 0.1 X10*3/uL (0.0-0.4); Eosinophils Percent Auto 2.9 % (0-4); Hematocrit 40.8 % (42.0-52.0); Hemoglobin 13.2 g/dl (14.0-18.0); Imm Gran Abs Auto 0.01 X10*3/uL (0.00-0.03); Imm Gran Pct Auto 0.2 % (0.0-0.4); Lymphocytes Absolute Auto 2.1 X10*3/uL (1.2-4.9); Lymphocytes Percent Auto 44.9 % (20-40); Mean Corpuscular HGB Conc 32.4 g/dl (31.0-36.0); Mean Corpuscular Hemoglobin 28.3 pg (27.0-33.0); Mean Corpuscular Volume 87.4 fL (80.0-98.0); Mean Platelet Volume 10.3 fL (9.4-12.4); Monocytes Absolute Auto 0.5 X10*3/uL (0.1-1.2); Monocytes Percent Auto 9.4 % (2-11); Platelet Count 245 X10*3/uL (160-400); Red Blood Count 4.67 X10*6/uL (4.60-5.80); Red Cell Distribution Width 13.4 % (11.0-16.0); White Blood Count 4.8 X10*3/uL (4.8-10.8)
[2022-11-22 11:15] LABS: Creatinine Urine 217.06 mg/dL; Microalbum/Creatinine Ratio Ur 9.2 ug/mg cr
[2022-11-22 11:22] LABS: Alanine Aminotransferase 29 U/L (0-40); Albumin Level 3.9 g/dL (3.5-5.0); Alkaline Phosphatase 104 U/L (39-117); Anion Gap 10 (12-20); Aspartate Amino Transferase 27 U/L (5-37); Bilirubin Total 0.2 mg/dL (0.0-1.0); Blood Urea Nitrogen 14 mg/dL (9-16); Calcium 9.1 mg/dL (8.4-10.2); Carbon Dioxide 26 mmol/L (22-29); Chloride 107 mmol/L (96-108); Cholesterol 123 mg/dL; Estimated Glomerular Filt Rate > 60; Glucose Fasting 140 mg/dL (60-99); HDL Cholesterol 37 mg/dL; Iron 57 mcg/dL (45-160); LDL Cholesterol Calculated 56 mg/dl; Percent Iron Saturation 20 % (15-50); Potassium 4.2 mmol/L (3.3-5.1); Sodium 139 mmol/L (135-145); Total Iron Binding Capacity 292 mcg/dL (228-428); Total Protein 7.3 g/dL (6.5-8.0); Triglycerides 152 mg/dL; Unsaturated Iron Binding 235 ug/dL
[2022-11-22 11:25] LABS: Vitamin D 25-OH Total 27.3 ng/mL (>30)
[2022-11-22 11:37] LABS: Folate 14.4 ng/mL (> or = 4.0); Vitamin B12 441 pg/mL (200-900)
== END 2022-11-22 08:09 | disposition home or self-care (01) ==
LOC: HO.LAB 08:08
PROVIDERS: PCP Internal Medicine; Visit Provider Internal Medicine
DX: E11.65 Type 2 diabetes mellitus with hyperglycemia (principal); E55.9 Vitamin D deficiency, unspecified; E78.5 Hyperlipidemia, unspecified; D64.9 Anemia, unspecified; E53.8 Deficiency of other specified B group vitamins; Z79.4 Long term (current) use of insulin
CPT/HCPCS: 36415; 80053; 80061; 82043; 82306; 82607; 82746; 83540; 85025

== ENCOUNTER 2023-03-26 08:00 | Outpatient (AMB) | payer OTHER, SELFPAY ==
--- NOTE | 2023-03-26 08:15 | A.OFFPC_ITS ---
Vital Signs 03/26/23 08:16 Height 5 ft 10 in Weight 299 lb BMI 42.9 BP 136/88 Blood Pressure Location Lt brachial Position Sitting Intake Visit Reasons: dm Intake Note: Patient here for a follow up DM Logistic Manager Required: No Accompanied by: Self / Same As Patient Allergies shellfish derived [SHELLFISH DERIVED] Allergy (Severe, Verified 03/26/23 08:27) ANAPHYLAXIS metformin Adverse Reaction (Intermediate, Verified 03/26/23 08:27) diarrhea Medication List - Last Reconciled 03/26/23 by Kymberly Fernandez MD atorvastatin 40 mg PO DAILY 90 days CPAP (CPAP Machine/Device) autoPAP mode 6-20 cmH2O docusate sodium (Colace) 100 mg PO BID dulaglutide (Trulicity) 3 mg subcut QWEEK escitalopram oxalate 30 mg PO DAILY hydroxyzine pamoate 25 mg PO BEDTIME insulin glargine (Lantus U-100 Insulin) 22 units (0.22 mL) subcut DAILY 90 days insulin syringe-needle U-100 (BD Insulin Syringe Ultra-Fine) 0.5 mL miscellaneous DAILY 90 days lorazepam 1 mg PO BEDTIME PRN pioglitazone 45 mg PO DAILY Ventolin HFA 90 mcg/actuation (albuterol sulfate) 2 puffs inhalation Q6H PRN NS Tobacco use date assessed: 07/03/22 Dental Screening Dental Screen Date: 03/26/23 Did you have a dental visit in the last 12 months?: No Did you have a dental problem in the last 6 months where you did not have access to dental care?: No Was dental information given to patient?: Patient has dentist HPI HPI Comments History of Present Illness Details This is a 47-year-old male with diabetes mellitus type 2 on long-term current use of insulin, pure hypercholesterolemia, mild recurrent major depression, morbid obesity and obstructive sleep apnea on CPAP that comes today complaining of occasional tremors in his hands and he will be referred to neurology. Depression is follow by Psychiatry and has been stable with medications. He is morbidly obese with a BMI of 42.9 and was referred to weight management but got scare in the orientation. A1c is still elevated and I will increase Lantus and change Trulicity to Ozempic. LDL within goal. Compliant with CPAP machine and feels markedly improved and rested during the day while using the CPAP machine. [facility], [facility] Medical History (Updated 03/26/23 @ 09:47 by Kymberly Fernandez MD) Panic attack Anxiety Diabetes Mild recurrent major depression Morbid obesity Hypovitaminosis D Depression with anxiety GERD (gastroesophageal reflux disease) Pure hypercholesterolemia Diabetes mellitus Surgical History H/O eye surgery Family History Father Diabetes Hypertension CVD (cardiovascular disease) Mother Anxiety Diabetes Maternal Grandmother Cancer Paternal Uncle Diabetes Stroke Paternal Aunt Diabetes Maternal Grandmother Liver cancer Family/Other FH: mental illness Mental health disorder Housing: Apartment Alcohol intake: current Alcohol intake frequency: holidays/special occasions only Alcohol type: beer Patient Tobacco Use Status: Former Tobacco user Tobacco use type: Cigarette e-Cigarette/Vaping Use: Never Used Second Hand Smoke Exposure: No service: No Current occupational status: employed 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 Nestor Amezcua, Cheryl Rosa, Martinez Cee and colleagues, with an educational mary from [employer]. Review of Systems Const All systems reviewed & are unremarkable except as noted in HPI and below Eyes Reports no additional complaints, Denies change in vision and Denies other visual disturbances Card Denies chest pain at rest, Denies chest pain with activity, Denies edema, Denies irregular heart rhythm, Denies claudication, Denies dyspnea, Denies dyspnea on exertion, Denies orthopnea, Denies paroxysmal nocturnal dyspnea and Denies slow heart rate Resp Denies cough, Denies dyspnea and Denies dyspnea on exertion GI Denies abdominal pain, Denies change in bowel habits, Denies excessive flatus, D enies nausea and Denies vomiting Denies urinary hesitancy, Denies urinary incontinence and Denies urinary urgency Musc Denies abnormal gait, Denies atrophy, Denies deformity and Denies limited range of motion Skin/Breast Denies bleeding lesions, Denies changing lesions and Denies rash Neuro Denies abnormal gait, Denies behavioral changes and Denies lack of coordination Psych Denies behavioral changes Physical exam (Primary Care) Vital Signs: Last Vital Signs BP 136/88 03/26/23 08:16 BMI result Body Mass Index 42.9 Tobacco/Smoking Status: Tobacco use Status Tobacco use date assessed 07/03/22 03/26/23 08:17 Patient Tobacco Use Status Former Tobacco user 03/26/23 08:17 Tobacco use type Cigarette 03/26/23 08:17 e-Cigarette/Vaping Use Never Used 03/26/23 08:17 Thrive Assessment: Date of Thrive Assessment Date Thrive assessed 07/03/22 03/26/23 08:17 Eyes General: appearance normal, both eyes and all related structures Eyelids: Yes eyelids normal Conjunctivae: conjunctivae normal Neck Neck: Yes normal visual inspection and Yes supple Resp Effort & Inspection: normal respiratory effort Auscultation: clear to auscultation bilaterally Cardio Jugular venous distension: no JVD Rate: regular rate Rhythm: regular rhythm Heart sounds: S1 normal heart sound present and S2 normal heart sound present Extrem General: Yes full ROM Results AMB Hemoglobin A1c AMB Hemoglobin A1c 7.9 % Last Edit by SARANYA Berry on 03/26/23 08:2 9 Results Reviewed Results Reviewed: Laboratory Last Values Hgb A1c (Clinic) 7.9 % (4.0-6.0) H 03/26/23 08:15 Assessment and Plan Assessment & Plan (1) Diabetes mellitus: Code(s): E11.9 - Type 2 diabetes mellitus without complications Qualifiers: Diabetes mellitus type: type 2 Diabetes mellitus long term care social worker insulin use: with long term care social worker use Diabetes mellitus complication status: with hyperglycemia Qualified Code(s): E11.65 - Type 2 diabetes mellitus with hyperglycemia; Z79.4 - care home (current) use of insulin Plan: Increase Lantus to 25 units. Change Trulicity to Ozempic. A1c goal is equal or less than 7%. (2) Mild recurrent major depression: Code(s): F33.0 - Major depressive disorder, recurrent, mild Plan: Continue escitalopram. (3) Morbid obesity: Code(s): E66.01 - Morbid (severe) obesity due to excess calories Plan: Start diet and exercise. BMI goal is less than 30. (4) Pure hypercholesterolemia: Code(s): E78.00 - Pure hypercholesterolemia, unspecified Plan: Continue statins. LDL goal is less than 70. (5) Tremors of nervous system: Code(s): R25.1 - Tremor, unspecified Plan: Referred to neurology. (6) VALENTÍN (obstructive sleep apnea): Code(s): G47.33 - Obstructive sleep apnea (adult) (pediatric) Plan: Continue CPAP machine. Orders: Orders AMB Hemoglobin A1c Today E11.9 - Type 2 diabetes mellitus without complications XR foot RT 2V Today M79.671 - Pain in right foot Microalbumin, Random (w Creat) 4 Months E11.9 - Type 2 diabetes mellitus without complications Lipid Panel 4 Months E78.5 - Hyperlipidemia, unspecified Vitamin D 25-OH Total 4 Months E55.9 - Vitamin D deficiency, unspecified Comprehensive [place]. Panel Fast 4 Months E11.65 - Type 2 diabetes mellitus with hyperglycemia, Z79.4 - terminal clerk (current) use of insulin UA CC w/rflx Micro + Cult 4 Months R30.0 - Dysuria Referrals Neurology Referral R25.1 - Tremor, unspecified Medications: New semaglutide (Ozempic) for 4 weeks 0.25 mg (0.368 mL) subcut QWEEK 28 days 1.472 mL 0RF E11.9 - Type 2 diabetes mellitus without complications Changed From insulin glargine (Lantus U-100 Insulin) 22 units (0.22 mL) subcut DAILY 90 days 19.8 mL 1RF E11.65 - Type 2 diabetes mellitus with hyperglycemia, Z79.4 - care home (current) use of insulin To insulin glargine (Lantus U-100 Insulin) 25 units (0.25 mL) subcut DAILY 90 days 22.5 mL 1RF E11.65 - Type 2 diabetes mellitus with hyperglycemia, Z79.4 - terminal clerk (current) use of insulin Coding Level of Care Code Est Pt Level 4 (16609) Diagnoses Type 2 diabetes mellitus with hyperglycemia, with long-term current use of insulin E11.65; Z79.4 Diabetes mellitus type: type 2 Diabetes mellitus long term care social worker insulin use: with long term care social worker use Diabetes mellitus complication status: with hyperglycemia Mild recurrent major depression F33.0 Morbid obesity E66.01 Pure hypercholesterolemia E78.00 Tremors of nervous system R25.1 VALENTÍN (obstructive sleep apnea) G47.33 Time Spent (min) 23
[2023-03-26 08:16] VITALS: BP 136/88; BMI 42.9
== END 2023-03-26 08:37 | disposition home or self-care (01) ==
PROVIDERS: PCP Internal Medicine; Visit Provider Internal Medicine
DX: E11.65 Type 2 diabetes mellitus with hyperglycemia (principal); Z79.4 Long term (current) use of insulin; F33.0 Major depressive disorder, recurrent, mild; E66.01 Morbid (severe) obesity due to excess calories; E11.9 Type 2 diabetes mellitus without complications; Z68.41 Body mass index [BMI] 40.0-44.9, adult; E78.00 Pure hypercholesterolemia, unspecified; R25.1 Tremor, unspecified; G47.33 Obstructive sleep apnea (adult) (pediatric)
CPT/HCPCS: 83036; 99214

== ENCOUNTER 2023-04-05 09:25 | Outpatient (REF) | payer OTHER, SELFPAY ==
--- NOTE | ~2023-04-05 | XR_ITS ---
EXAMINATION: XR FOOT, RIGHT CLINICAL INFORMATION: Pain in right foot. COMPARISON: None available. TECHNIQUE: AP, lateral, and oblique views of the right foot. FINDINGS: Small dorsal and plantar calcaneal spurs. Moderate degenerative changes first metatarsophalangeal joint with joint space narrowing and hypertrophic change. Cystic lucency at the base of the proximal phalanx of the great toe. XR/XR foot RT 2V IMPRESSION: Moderate degenerative changes first metatarsophalangeal joint. No displaced fracture. Recommend follow-up imaging in 10-14 days if fracture is suspected.
== END 2023-04-05 09:26 | disposition home or self-care (01) ==
LOC: HO.XRAY 09:25
PROVIDERS: PCP Internal Medicine; Visit Provider Internal Medicine
DX: M79.671 Pain in right foot (principal)
CPT/HCPCS: 73620

== ENCOUNTER 2023-08-06 08:59 | Outpatient (AMB) | payer OTHER, SELFPAY ==
--- NOTE | 2023-08-06 09:12 | A.OFFVIS_ITS ---
Intake Vital Signs 08/06/23 09:13 Height 5 ft 10 in Weight 303 lb BMI 43.5 BP 128/78 Blood Pressure Location Rt brachial Position Sitting Pulse 97 Pulse Source Pulse Oximeter Pulse Oximetry (%) 98 Oxygen Delivery Method Room Air Intake Visit Reasons: I-LAND CLASSIFIER: Tremors-Conf Intake Note: Patient presents for tremors. I've been having tremors on and off for a year now mostly my hands. Allergies shellfish derived [SHELLFISH DERIVED] Allergy (Severe, Verified 08/06/23 09:16) ANAPHYLAXIS metformin Adverse Reaction (Intermediate, Verified 08/06/23 09:16) diarrhea Medication List - Last Reconciled 08/06/23 by ERIC Turpin atorvastatin 40 mg PO DAILY 90 days CPAP (CPAP Machine/Device) autoPAP mode 6-20 cmH2O docusate sodium (Colace) 100 mg PO BID escitalopram oxalate 30 mg PO DAILY hydroxyzine pamoate 25 mg PO BEDTIME insulin glargine (Lantus U-100 Insulin) 25 units (0.25 mL) subcut DAILY 90 days insulin syringe-needle U-100 (BD Insulin Syringe Ultra-Fine) 0.5 mL miscellaneous DAILY 90 days lorazepam 1 mg PO BEDTIME PRN pioglitazone 45 mg PO DAILY semaglutide (Ozempic) 0.25 mg (0.368 mL) subcut QWEEK 28 days Ventolin HFA 90 mcg/actuation (albuterol sulfate) 2 puffs inhalation Q6H PRN NS HPI HPI Comments History of Present Illness Details 47- yr-old male presents for new pt eval uation of movement disorder, specifically: tremor. Pt is concerned about bilateral hand tremor which started about a year ago. The tremor is not all the time. He notices this mostly with activity, such as eating. Can occur at rest. He has also started noticing a RLE rest tremor. He is curious what is causing the tremor and if there if there is anything he can do for this. PMH: Depression, Diabetes, BUE, R > L, carpal tunnel syndrome- dx'd 6 months ago (not a candidate for sx d/t elevated HgA1C). Pt is right handed. ADL status: Ind IADL status: Ind Fine-motor skills: Has not noticed any issues w/ buttons, zippers. Eating or grabbing a remote control. Micrographia: No changes noted. Vision changes: states vision is poor- r/t his diabetes Hypophonia: sometimes he can speak very softly or will mumble Hyposmia: Denies Dysphagia: Denies Drooling: Denies Orthostatic lightheadedness: Sometimes, transient. Constipation: Denies Slowness: Slower overall Freezing episodes: Denies Tremor: as above Involuntary movements: May blink at times Dyskinesia: Denies Stiffness: Generally, but more so in neck and shoulders Paresthesias: BUE numbness and tingling- can wake up with numb hands- does use a wrist splint qhs prn- helps. Gait changes: Denies. Denies falls. Sleep difficulty: Endorses leg cramps at night.. VALENTÍN- Started using CPAP last yr- states was using it daily but now just prn as he is sleeping better- no longer having gasping arousals. Has had wt gain. HST, June 2022, AHI 22/hr w/O2 felipe 72% (SpO2 < 905 x's 14 min, < 88% x's 7 min). Parasomnias: tells him he talks or laughs while sleeping. He denies punching/kicking/getting OOB. Memory impairment: Can be forgetful. Sometimes can lose his train of thought. Mood: Endorses mild depression, may be prone to want to be alone or have low motivation. Has a therpaist- sees bi-weekly. Hallucinations: Sometimes- may feel like someone is over his shoulder or right behind him. He is not sure if this is paranoia. Usual exercise: No usual exercise. History of concussion/head injury? Denies History of neuroleptic (metoclopramide/antipsychotics) use? Denies. On escitaopram, hydroxyzine, and prn Lorazapam. History of psychiatric hospitalizations? Denies History of occupational or environmental chemical exposures? Denies. 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 Family history of movement disorders? Denies Family history of mood disorder or suicide? Denies [facility] Medical History Panic attack Anxiety Diabetes Mild recurrent major depression Morbid obesity Hypovitaminosis D Depression with anxiety GERD (gastroesophageal reflux disease) Pure hypercholesterolemia Diabetes mellitus Surgical History H/O eye surgery Family History Father Diabetes Hypertension CVD (cardiovascular disease) Mother Anxiety Diabetes Maternal Grandmother Cancer Paternal Uncle Diabetes Stroke Paternal Aunt Diabetes Maternal Grandmother Liver cancer Family/Other FH: mental illness Mental health disorder Social History Housing: Apartment Alcohol intake: current Alcohol intake frequency: holidays/special occasions only Alcohol type: beer Patient Tobacco Use Status: Former Tobacco user Tobacco use type: Cigarette e-Cigarette/Vaping Use: Never Used Second Hand Smoke Exposure: No service: No Current occupational status: employed 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 Current occupational exposures/hazards: No Cognitive needs: No Hearing needs: No Vision needs: Yes Review of Systems Const All systems reviewed & are unremarkable except as noted in HPI and below Physical Exam Vital Signs: Last Vital Signs Pulse 97 08/06/23 09:13 BP 128/78 08/06/23 09:13 Pulse Ox 98 08/06/23 09:13 Oxygen Delivery Method Room Air 08/06/23 09:13 BMI result Body Mass Index 43.5 Const General: cooperative and no acute distress HEENT Face and sinus: Yes other (Decreased expression and blink) Resp Effort & Inspection: normal respiratory effort and able to speak in complete sentences Neuro Other: General: A&O x's 3. Cranial nerves 2-12 intact, with the only exception of EOM with poor convergence. ENT: Mallampati stage IV Expression: Ok Voice: Soft but audible (? baseline) Tremor: Very mild right upper extremity postural tremor. Right handed Archimedes spiral: Legible without tremor. Left-handed Archimedean spiral: Very minimal end-of- spiral tremor, legible. Patient able to pickers material handlers and tip over alcohol gel wall without tremor bilaterally. Writing sample: Print is larger than course of writing. In cursive, mild micrographia. Tone: Very mild right elbow to Dyskinesia: None BUE KELLEY: Very mild the decreased fluidity on right FFM: Very mild decrease is right upper extremity. Foot taps: Very mild decrease in right lower extremity Gait: Able to stand without using hands, decreased arm swing, very subtle possible right lower foot drop, study. Psych: Pleasant affect Bilateral upper extremity: Phalen, Tinel, medial compression test: All normal. Deep tendon reflexes (DTR's): Right triceps reflex intensity grade: 2+, Left triceps reflex intensity grade: 2+, Rt Biceps (C5, C6): 2+, Left biceps reflex intensity grade: 2+, Right brachioradialis reflex intensity grade: 2+, Left brachioradialis reflex intensity grade: 2+, Right patellar reflex intensity grade: 2+ and Left patellar reflex intensity grade: 2+ Coordination: [id number] test normal Psych Mental Status: mental status grossly normal Speech and movement: Normal speech and movement present Affect: normal affect Attitude: cooperative Thought process: Normal thought process present Assessment & Plan Assessment & Plan (1) Tremors of nervous system: Comment: ? early movement d/o, ? CV etiology, ? CTS. Code(s): R25.1 - Tremor, unspecified (2) Carpal tunnel syndrome, right: Code(s): G56.01 - Carpal tunnel syndrome, right upper limb (3) VALENTÍN (obstructive sleep apnea): Code(s): G47.33 - Obstructive sleep apnea (adult) (pediatric) Plan Pt advised to: Undergo brain MRI without contrast to assess for intracranial vascular etiologies of tremor and movement symptoms. Follow-up with Orthopedics, use wrist splint at night. Resume using CPAP nightly, discuss that people with untreated sleep apnea are not always aware of the degree of their symptoms. We will reach out to reliable home care to assess recent compliance report data. Increase physical activity as tolerated. Consider referral to PT and/or OT after ortho consult. Patient seen in collaboration with Dr. Reshma Mueller. Follow-up in 6 months or sooner as needed. 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
[2023-08-06 09:13] VITALS: BP 128/78; PULSE 97; O2SAT 98; BMI 43.5
== END 2023-08-06 10:21 | disposition home or self-care (01) ==
PROVIDERS: PCP Internal Medicine; Visit Provider Nurse Practitioner Family
DX: R25.1 Tremor, unspecified (principal); G56.01 Carpal tunnel syndrome, right upper limb; G47.33 Obstructive sleep apnea (adult) (pediatric)
CPT/HCPCS: 99204

== ENCOUNTER → 2023-08-06 08:59 | Outpatient (BNVA) | payer OTHER, SELFPAY | PROVIDERS: PCP Internal Medicine; Visit Provider Nurse Practitioner Family | DX: G56.01 Carpal tunnel syndrome, right upper limb (principal); G47.33 Obstructive sleep apnea (adult) (pediatric); R25.1 Tremor, unspecified | CPT/HCPCS: 99202 ==

== ENCOUNTER 2023-08-27 09:10 | Outpatient (AMB) | payer OTHER, SELFPAY ==
[2023-08-27 09:30] VITALS: BP 144/90; BMI 43.2
--- NOTE | 2023-08-27 09:30 | MHC.PC.OV ---
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 Required: No Accompanied by: Self / Same As Patient Allergies shellfish derived [SHELLFISH DERIVED] Allergy (Severe, Verified 08/27/23 09:45) ANAPHYLAXIS metformin Adverse Reaction (Intermediate, Verified 08/27/23 09:45) diarrhea Medication List - Last Reconciled 08/27/23 by Kymberly Fernandez MD atorvastatin 40 mg PO DAILY 90 days CPAP (CPAP Machine/Device) autoPAP mode 6-20 cmH2O docusate sodium (Colace) 100 mg PO BID escitalopram oxalate 30 mg PO DAILY hydroxyzine pamoate 25 mg PO BEDTIME insulin glargine (Lantus U-100 Insulin) 25 units (0.25 mL) subcut DAILY 90 days insulin syringe-needle U-100 (BD Insulin Syringe Ultra-Fine) 0.5 mL miscellaneous DAILY 90 days lorazepam 1 mg PO BEDTIME PRN pioglitazone 45 mg PO DAILY semaglutide (Ozempic) 0.25 mg (0.368 mL) subcut QWEEK 28 days Ventolin HFA 90 mcg/actuation (albuterol sulfate) 2 puffs inhalation Q6H PRN NS Tobacco use date assessed: 08/27/23 Dental Screening Dental Screen Date: 08/27/23 Did you have a dental visit in the last 12 months?: No Did you have a dental problem in the last 6 months where you did not have access to dental care?: No Was dental information given to patient?: Patient has dentist HPI HPI Comments History of Present Illness Details This is a 47-year-old male with diabetes mellitus type 2 on long-term current use of insulin, morbid obesity and mild recurrent major depression that comes for his physical exam. A1c elevated and I will increase Lantus and Ozempic. He is morbidly obese with a BMI of 43.2 and declines weight loss surgery. Was advised to do diet and exercise as tolerated to reach BMI goal less than 30. Depression has markedly improved with escitalopram. Next diabetic eye exam is scheduled for November 2023. Has never had a colonoscopy and will be referred to Gastroenterology for that matter. No chest pain or shortness of breath. [facility] Medical History (Updated 08/27/23 @ 09:52 by Kymberly Fernandez MD) Panic attack Anxiety Diabetes Mild recurrent major depression Morbid obesity Hypovitaminosis D Depression with anxiety GERD (gastroesophageal reflux disease) Pure hypercholesterolemia Diabetes mellitus Surgical History H/O eye surgery Family History Father Diabetes Hypertension CVD (cardiovascular disease) Mother Anxiety Diabetes Maternal Grandmother Cancer Paternal Uncle Diabetes Stroke Paternal Aunt Diabetes Maternal Grandmother Liver cancer Family/Other FH: mental illness Mental health disorder Social History Housing: Apartment Alcohol intake: current Alcohol intake frequency: holidays/special occasions only Alcohol type: beer Patient Tobacco Use Status: Former Tobacco user Tobacco use type: Cigarette e-Cigarette/Vaping Use: Never Used Second Hand Smoke Exposure: No service: No Current occupational status: employed 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 1. Little interest or pleasure in doing things: not at all 2. Feeling down, depressed, or hopeless: not at all 3. Trouble falling or staying asleep, or sleeping too much: not at all 4. Feeling tired or having little energy: not at all 5. Poor appetite or overeating: not at all 6. Feeling bad about yourself - or that you are a failure or have let yourself or your family down: not at all 7. Trouble concentrating on things, such as reading the newspaper or watching television: not at all 8. Moving or speaking so slowly that other people could have noticed. Or the opposite - being so fidgety or restless that you have been moving around a lot more than usual: not at all 9. Thoughts that you would be better off or of hurting yourself in some way: not at all Total score: 0 Depression Screening Interpretation: Negative Depression Screening Done: Yes 84644 - PHQ-9 Billing: Yes Source: Developed by Drs. Nestor Amezcua, Cheryl Rosa, Martinez Cee and colleagues, with an educational mary from [employer]. Thrive Questionnaire Date Thrive assessed: 08/27/23 I am a: Patient What is your living situation today?: I have a steady place to live Within the past 12 months, did the food you bought not last and you didn't have the money to get more?: Never true Within the past 12 months, did you worry whether your food would run out before you got money to buy more?: Never true Do you have trouble paying for medicines?: No Do you have trouble getting transportation to medical appointments?: No Do you have trouble paying your heating and electricity bill?: No Do you have trouble taking care of your child, family member or friend?: No Do you have trouble with day-to-day activities such as bathing, preparing meals, shopping, managing finances, etc.?: No Are you currently unemployed and looking for a job?: No Are you interested in more education?: No Please select the resources that you would like help with: None Currently or been in a relationship where the following occur: no concerns reported THRIVE Score: 0 AUDIT C Alcohol Use Questionnaire (AUDIT-C) 1. How often do you have a drink containing alcohol?: Monthly or less 2. How many drinks containing alcohol do you have on a typical day when you are drinking?: 1 or 2 3. How often do you have six or more drinks on one occasion?: Never Total Score: 1 Score Reviewed/Action Taken: No UMAIR-7 AMB Questionnaire UMAIR-7 Date UMAIR - 7 assessed: 08/27/23 Feeling nervous, anxious, or on edge: 0 = Not at all Not being able to stop or control worryin = Not at all Worrying too much about different things: 0 = Not at all Trouble relaxin = Not at all Being so restless that it is hard to sit still: 0 = Not at all Becoming easily annoyed or irritable: 0 = Not at all Feeling afraid as if something awful might happen: 0 = Not at all Total UMAIR-7 score (0-4 normal; 5-9 mild; 10-14 moderate; 15-21 severe): 0 Source: Developed by Cheryl AvalosW. Moe, Martinez Cee and colleagues, with an educational mray from [employer]. UMAIR-7 Assessment Billing UMAIR-7 Assessment Tool: UMAIR-7 Assessment 72687 Review of Systems Const All systems reviewed & are unremarkable except as noted in HPI and below Eyes Reports no additional complaints, Denies change in vision and Denies other visual disturbances Card Denies chest pain at rest, Denies chest pain with activity, Denies edema, Denies irregular heart rhythm, Denies claudication, Denies dyspnea, Denies dyspnea on exertion, Denies orthopnea, Denies paroxysmal nocturnal dyspnea and Denies slow heart rate Resp Denies cough, Denies dyspnea and Denies dyspnea on exertion GI Denies abdominal pain, Denies change in bowel habits, Denies excessive flatus, Denies nausea and Denies vomiting Denies urinary hesitancy, Denies urinary incontinence and Denies urinary urgency Physical exam (Primary Care) Vital Signs: Last Vital Signs BP 144/90 H 08/27/23 09:30 BMI result Body Mass Index 43.2 Tobacco/Smoking Status: Tobacco use Status Tobacco use date assessed 08/27/23 08/27/23 09:34 Patient Tobacco Use Status Former Tobacco user 08/27/23 09:34 Tobacco use type Cigarette 08/27/23 09:34 e-Cigarette/Vaping Use Never Used 08/27/23 09:34 PHQ-9: PHQ-9 Score PHQ-9: Total score 0 08/27/23 09:49 Depression Screening Interpretation: Negative Thrive Assessment: Date of Thrive Assessment Date Thrive assessed 08/27/23 08/27/23 09:34 Currently or been in a relationship where the following occur: no concerns reported Const Orientation/consciousness: patient oriented x3 HENMT Head: Yes normal to inspection, Yes normocephalic and Yes atraumatic Ears: external ears normal Eyes General: appearance normal, both eyes and all related structures Eyelids: Yes eyelids normal Conjunctivae: conjunctivae normal Neck Neck: Yes normal visual inspection and Yes supple Resp Effort & Inspection: normal respiratory effort Auscultation: clear to auscultation bilaterally Cardio Jugular venous distension: no JVD Rate: regular rate Rhythm: regular rhythm Heart sounds: S1 normal heart sound present and S2 normal heart sound present GI Inspection: Yes normal to inspection Palpation (GI): Soft to palpation and nontender Auscultation: normal bowel sounds Skin General skin exam: no rashes or lesions noted Neuro General: patient oriented x3 and no focal motor deficits Extrem General: Yes full ROM Psych Appearance: grossly normal Results AMB Hemoglobin A1c AMB Hemoglobin A1c 10.8 % Last Edit by SARANYA Berry on 08/27/23 09:37 AMB Hemoglobin A1c previously reported as 10.0 Landy Cortez 08/27/23 09:37 Results Reviewed Results Reviewed: Laboratory Last Values Hgb A1c (Clinic) 10.8 % (4.0-6.0) H 08/27/23 09:35 Assessment and Plan Assessment & Plan (1) Encounter for physical examination: Code(s): Z00.00 - Encounter for general adult medical examination without abnormal findings Plan: Repeat in a year. (2) Morbid obesity: Code(s): E66.01 - Morbid (severe) obesity due to excess calories Plan: Declines weight loss surgery. Advised to do diet and exercise as tolerated to reach BMI goal less than 30. (3) Mild recurrent major depression: Code(s): F33.0 - Major depressive disorder, recurrent, mild Plan: Continue escitalopram. 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 Continue Actos. Increase Ozempic from 0.25 to 0.5. A1c goal is equal or less than 7%. Orders: Orders AMB Hemoglobin A1c Today E11.65 - Type 2 diabetes mellitus with hyperglycemia, Z79.4 - intermediate card tender (current) use of insulin Lipid Panel Today E78.5 - Hyperlipidemia, unspecified Microalbumin, Random (w Creat) Today E11.9 - Type 2 diabetes mellitus without complications Complete Blood Count Auto Diff Today D64.9 - Anemia, unspecified IRON PROFILE Today D64.9 - Anemia, unspecified Vitamin D 25-OH Total Today E55.9 - Vitamin D deficiency, unspecified Vitamin B12 and Folate Today E53.8 - Deficiency of other specified B group vitamins Comprehensive Freeman. Panel Fast Today Z00.00 - Encounter for general adult medical examination without abnormal findings Referrals Gastroenterology Referral Z12.11 - Encounter for screening for malignant neoplasm of colon Medications: New semaglutide (Ozempic) 0.5 mg (0.736 mL) subcut QWEEK 2.944 mL 0RF 28 days E11.65 - Type 2 diabetes mellitus with hyperglycemia, Z79.4 - intermediate card tender (current) use of insulin Changed From insulin glargine (Lantus U-100 Insulin) 25 units (0.25 mL) subcut DAILY 90 days 22.5 mL 1RF E11.65 - Type 2 diabetes mellitus with hyperglycemia, Z79.4 - intermediate card tender (current) use of insulin To insulin glargine (Lantus U-100 Insulin) 30 units (0.3 mL) subcut DAILY 27 mL 1RF 90 days E11.65 - Type 2 diabetes mellitus with hyperglycemia, Z79.4 - intermediate card tender (current) use of insulin Discontinued semaglutide (Ozempic) for 4 weeks Discontinued Reason: Patient Completed Course 0.25 mg (0.368 mL) subcut QWEEK 28 days 1.472 mL 0RF E11.9 - Type 2 diabetes mellitus without complications Coding Level of Care Code Est Pt Prev Care 40-64y(27700) Diagnoses Encounter for physical examination Z00.00 Morbid obesity E66.01 Mild recurrent major depression F33.0 Type 2 diabetes mellitus with hyperglycemia, with long-term current use of insulin E11.65; Z79.4 Diabetes mellitus type: type 2 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
== END 2023-08-27 10:01 | disposition home or self-care (01) ==
PROVIDERS: PCP Internal Medicine; Visit Provider Internal Medicine
DX: Z00.00 Encounter for general adult medical examination without abnormal findings (principal); E66.01 Morbid (severe) obesity due to excess calories; Z68.41 Body mass index [BMI] 40.0-44.9, adult; F33.0 Major depressive disorder, recurrent, mild; E11.65 Type 2 diabetes mellitus with hyperglycemia; Z79.4 Long term (current) use of insulin
CPT/HCPCS: 83036; 99396

== ENCOUNTER 2023-08-27 18:43 | Outpatient (REF) | payer OTHER, SELFPAY ==
--- NOTE | ~2023-08-27 | MR_ITS ---
MRI OF THE BRAIN WITHOUT IV CONTRAST INDICATION: Tremor. COMPARISON: None available. TECHNIQUE: Multiplanar multisequence MR imaging of the brain was obtained without IV contrast. FINDINGS: There is no hydrocephalus, extra-axial surface collection, or herniation. No parenchymal signal abnormality. The major flow voids at the skull base are preserved. There is no acute infarct on diffusion-weighted imaging. There is no intracranial hemorrhage on the gradient recalled echo acquisition. The midline structures are normal. 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 The craniocervical junction is normal. Osseous marrow signal intensity is homogenous. The visualized soft tissues are unremarkable. 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 - Unremarkable noncontrast MRI of the brain.
== END 2023-08-27 18:44 | disposition home or self-care (01) ==
LOC: HO.MRI 18:43
PROVIDERS: PCP Internal Medicine; Visit Provider Nurse Practitioner Family
DX: R25.1 Tremor, unspecified (principal); G47.33 Obstructive sleep apnea (adult) (pediatric); E66.01 Morbid (severe) obesity due to excess calories; E11.65 Type 2 diabetes mellitus with hyperglycemia; Z79.4 Long term (current) use of insulin; E78.00 Pure hypercholesterolemia, unspecified
CPT/HCPCS: 70551

== ENCOUNTER 2023-10-25 07:31 | Outpatient (REF) | payer OTHER, SELFPAY ==
--- NOTE | ~2023-10-25 | CT_ITS ---
EXAMINATION: CT HEAD WITHOUT CONTRAST CLINICAL INFORMATION: Evaluate parietal bone marrow signal abnormality measuring 2.6 cm near vertex seen on MRI 08/27/2023. COMPARISON: MRI brain 08/27/2023 TECHNIQUE: Contiguous axial imaging was performed from the skull base to vertex without intravenous administration of contrast. This CT examination was performed using dose optimization techniques as appropriate, variously including the following: *Automated exposure control *Adjustment of mA and/or kV according to patient size (this includes techniques or standardized protocols for targeted exams where dose is matched to indication/reason for exam; i.e. extremities or head) *Use of iterative reconstruction technique DLP: 1032 mGy-cm FINDINGS: There is no evidence of intracranial hemorrhage, mass effect, edema, or acute territorial infarct. Ventricles, sulci, and cisterns are normal in size and configuration for patient age. No shift of midline. No extra-axial fluid collection. No white matter abnormalities are identified. 2 mm of cerebellar tonsillar ectopia again noted which does not meet criteria for a true Chiari malformation. Pituitary has a normal concave superior border. Globes and orbital contents appear normal. Paranasal sinuses and mastoid air cells are normally aerated. No extracranial soft tissue abnormality. 2.6 x 2.9 sclerotic focus in the anterior right parietal bone near the vertex, corresponding to the marrow abnormality seen on MR. There is no diploic expansion. There are normal vascular channel seen traversing. 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 This has nonaggressive features and is benign. CT/CT head/brain wo IV con IMPRESSION: No acute intracranial abnormalities. 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 This is benign. No aggressive characteristics.
== END 2023-10-25 07:32 | disposition home or self-care (01) ==
LOC: HO.CT 07:31
PROVIDERS: PCP Internal Medicine; Visit Provider Nurse Practitioner Family
DX: D75.9 Disease of blood and blood-forming organs, unspecified (principal)
CPT/HCPCS: 70450

== ENCOUNTER → 2023-10-25 07:33 | Outpatient (BNV) | payer OTHER, SELFPAY | PROVIDERS: PCP Internal Medicine; Visit Provider Radiology Diagnostic Radiology | DX: D75.9 Disease of blood and blood-forming organs, unspecified (principal) | CPT/HCPCS: 70450 ==

== ENCOUNTER 2024-01-09 10:24 | Outpatient (AMB) | payer OTHER, SELFPAY ==
--- NOTE | 2024-01-09 10:28 | A.OFFPC_ITS ---
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 Removal Supervisor Required: No Accompanied by: Self / Same As Patient Allergies shellfish derived [SHELLFISH DERIVED] Allergy (Severe, Verified 01/09/24 10:44) ANAPHYLAXIS metformin Adverse Reaction (Intermediate, Verified 01/09/24 10:44) diarrhea Medication List - Last Reconciled 01/09/24 by Kymberly Fernandez MD atorvastatin 40 mg PO DAILY 90 days CPAP (CPAP Machine/Device) autoPAP mode 6-20 cmH2O docusate sodium (Colace) 100 mg PO BID escitalopram oxalate 30 mg PO DAILY hydroxyzine pamoate 25 mg PO BEDTIME insulin glargine (Lantus U-100 Insulin) 30 units (0.3 mL) subcut DAILY 90 days insulin syringe-needle U-100 (BD Insulin Syringe Ultra-Fine) 0.5 mL miscellaneous DAILY 90 days lorazepam 1 mg PO BEDTIME PRN pioglitazone 45 mg PO DAILY semaglutide (Ozempic) 1 mg (0.75 mL) subcut QWEEK 4 weeks Ventolin HFA 90 mcg/actuation (albuterol sulfate) 2 puffs inhalation Q6H PRN NS Tobacco use date assessed: 08/27/23 Dental Screening Dental Screen Date: 08/27/23 HPI HPI Comments History of Present Illness Details This is a 48-year-old male with diabetes mellitus type 2, pure hypercholesterolemia, mild major depression and morbid obesity that comes today for follow-up on his conditions. A1c has markedly improved. LDL within goal. Depression stable with medications. He is morbidly obese with a BMI of 41.6 and has been trying to do diet and exercise to lose weight. Denies any chest pain or shortness on breath. [facility] Medical History Panic attack Anxiety Diabetes Mild recurrent major depression Morbid obesity Hypovitaminosis D Depression with anxiety GERD (gastroesophageal reflux disease) Pure hypercholesterolemia Diabetes mellitus Surgical History H/O eye surgery Family History Father Diabetes Hypertension CVD (cardiovascular disease) Mother Anxiety Diabetes Maternal Grandmother Cancer Paternal Uncle Diabetes Stroke Paternal Aunt Diabetes Maternal Grandmother Liver cancer Family/Other FH: mental illness Mental health disorder Social History Housing: Apartment Alcohol intake: current Alcohol intake frequency: holidays/special occasions only Alcohol type: beer Patient Tobacco Use Status: Former Tobacco user Tobacco use type: Cigarette e-Cigarette/Vaping Use: Never Used Second Hand Smoke Exposure: No service: No Current occupational status: employed 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 Nestor Amezcua, Cheryl Rosa, Martinez Cee and colleagues, with an educational mary from [employer]. Review of Systems Const All systems reviewed & are unremarkable except as noted in HPI and below Card Denies chest pain at rest, Denies chest pain with activity, Denies edema, Denies irregular heart rhythm, Denies claudication, Denies dyspnea, Denies dyspnea on exertion, Denies orthopnea, Denies paroxysmal nocturnal dyspnea and Denies slow heart rate Resp Denies cough, Denies dyspnea and Denies dyspnea on exertion GI Denies abdominal pain, Denies change in bowel habits, Denies excessive flatus, Denies nausea and Denies vomiting Denies urinary hesitancy, Denies urinary incontinence and Denies urinary urgency Musc Denies abnormal gait, Denies atrophy, Denies deformity and Denies limited range of motion Skin/Breast Denies bleeding lesions, Denies changing lesions and Denies rash Neuro Denies abnormal gait and Denies lack of coordination Physical exam (Primary Care) Vital Signs: Last Vital Signs BP 124/80 01/09/24 10:30 BMI result Body Mass Index 41.6 BMI Assessment/Plan discussion: High BMI High, discussed plan: lifestyle, weight reduction, dietary and physical activity Tobacco/Smoking Status: Tobacco use Status Tobacco use date assessed 08/27/23 01/09/24 10:29 Patient Tobacco Use Status Former Tobacco user 01/09/24 10:29 Tobacco use type Cigarette 01/09/24 10:29 e-Cigarette/Vaping Use Never Used 01/09/24 10:29 Thrive Assessment: Date of Thrive Assessment Date Thrive assessed 08/27/23 01/09/24 10:29 Resp Effort & Inspection: normal respiratory effort Auscultation: clear to auscultation bilaterally Cardio Jugular venous distension: no JVD Rate: regular rate Rhythm: regular rhythm Heart sounds: S1 normal heart sound present and S2 normal heart sound present Extrem General: Yes full ROM Results AMB Hemoglobin A1c AMB Hemoglobin A1c 7.4 % Last Edit by SARANYA Berry on 01/09/24 10:4 7 Results Reviewed Results Reviewed: Laboratory Last Values Hgb A1c (Clinic) 7.4 % (4.0-6.0) H 01/09/24 10:27 Assessment and Plan Assessment & Plan (1) Mild recurrent major depression: Code(s): F33.0 - Major depressive disorder, recurrent, mild Plan: Continue escitalopram. (2) Morbid obesity: Code(s): E66.01 - Morbid (severe) obesity due to excess calories Plan: Continue diet and exercise. BMI goal is less than 30. (3) Diabetes mellitus: Code(s): E11.9 - Type 2 diabetes mellitus without complications Qualifiers: Diabetes mellitus type: type 2 Diabetes mellitus residential insulin use: with intermediate frame tender use Diabetes mellitus complication status: with hyperglycemia Qualified Code(s): E11.65 - Type 2 diabetes mellitus with hyperglycemia; Z79.4 - exterminator helper (current) use of insulin Plan: Continue insulin. A1c goal is equal or less than 7%. (4) Pure hypercholesterolemia: Code(s): E78.00 - Pure hypercholesterolemia, unspecified Plan: Continue statins. LDL goal is less than 70. Orders: Orders Lipid Panel Today E78.5 - Hyperlipidemia, unspecified Microalbumin, Random (w Creat) Today E11.9 - Type 2 diabetes mellitus without complications Comprehensive [place]. Panel Fast Today E11.65 - Type 2 diabetes mellitus with hyperglycemia, Z79.4 - exterminator helper (current) use of insulin AMB Hemoglobin A1c Today E11.65 - Type 2 diabetes mellitus with hyperglycemia, Z79.4 - exterminator helper (current) use of insulin Medications: New semaglutide (Ozempic) 2 mg (0.75 mL) subcut QWEEK 4 weeks 3 mL 6RF E11.65 - Type 2 diabetes mellitus with hyperglycemia, Z79.4 - [facility] (current) use of insulin Discontinued semaglutide (Ozempic) Discontinued Reason: Patient Completed Course 1 mg (0.75 mL) subcut QWEEK 4 weeks 3 mL 6RF Coding Level of Care Code Est Pt Level 4 (33094) Complex EM visit Add On G2211 Diagnoses Mild recurrent major depression F33.0 Morbid obesity E66.01 Type 2 diabetes mellitus with hyperglycemia, with long-term current use of insulin E11.65; Z79.4 Diabetes mellitus type: type 2 Diabetes mellitus residential insulin use: with intermediate frame tender use Diabetes mellitus complication status: with hyperglycemia Pure hypercholesterolemia E78.00 Time Spent (min) 23
[2024-01-09 10:30] VITALS: BP 124/80; BMI 41.6
== END 2024-01-09 10:54 | disposition home or self-care (01) ==
PROVIDERS: PCP Internal Medicine; Visit Provider Internal Medicine
DX: F33.0 Major depressive disorder, recurrent, mild (principal); E11.65 Type 2 diabetes mellitus with hyperglycemia; Z79.4 Long term (current) use of insulin; E78.00 Pure hypercholesterolemia, unspecified
CPT/HCPCS: 83036; 99214; G2211

== ENCOUNTER 2024-01-15 10:52 | Outpatient (AMB) | payer OTHER, SELFPAY ==
--- NOTE | 2024-01-15 09:10 | A.OFFVIS_ITS ---
Vital Signs 01/15/24 11:02 Height 5 ft 10 in Weight 293 lb 3.437 oz BMI 42.1 BP 118/72 Blood Pressure Location Rt brachial Position Sitting Pulse 87 Pulse Source Pulse Oximeter Intake Visit Reasons: DM/CONFIRMED Intake Note: NEW Patient presents today to establish treatment for Diabetes Mellitus Type 2: Last Diabetic eye exam was on: 11/2023, getting monthly shots Last Podiatry exam was on: Does not see a Sterilisation Technician Most recent HbA1c: 7.4%, 01/09/2024 Random Glucose- 91 mg/dL, Today Lacquer Maker Required: No Accompanied by: Self / Same As Patient Allergies shellfish derived [SHELLFISH DERIVED] Allergy (Severe, Verified 01/15/24 10:57) ANAPHYLAXIS metformin Adverse Reaction (Intermediate, Verified 01/15/24 10:57) diarrhea HPI Comments Details: 48 YO male who is seen in consultation for T2DM at the request of PCP. He has previously been followed at [facility] endocrinology. His most recent A1c was 7.4% on 01/09/24. Initially diagnosed with T2DM approx 2019. Was initially started on treatment with: Metformin caused diarrhea Jardiance caused UTI Glipizide caused hypoglycemia Current regimen: Lantus 30 units Pioglitazone 45 mg daily Semaglutide 2.0 mg weekly was increased 2 months ago He is on a [employer] with [facility]. Unable to download at this visit. He reports he is running less than 130 in the morning. Later in the day 180. Reports low sugars very rare. Treats lows with juice Checks sugar after to ensure it is rising. Has eyes checked several times per year, has proliferative diabetic retinopathy,has had injections in the past which will be restarted + neuropathy: has numbness tingling and pain. The last foot exam was today in the office,does not see podiatry. No nephropathy, not on KARMA/ARB Labs 11/22/22 microalbumin 20 eGFR >60 Has HLD, on statin. Last LDL 56 as measured on 10/2022. Denies CAD. Diet:trys to balance Weight:reports weight down 10 pounds this summer since increase of donna ROBERTS screen Fibrosis-4 (Fib-4) Index for liver fibrosis (calculated on lab work done: 11/22/2022) 0.96 points Advanced fibrosis excluded Approximate Fibrosis stage Kavita 0-1 *Use with caution in patients <35 or >65 years old, as the score has been shown to be less reliable in these patients. Prior Imaging none Action Plan: rescreen two years from date of screening labs due 11/22/2024 [facility] Medical History Panic attack Anxiety Diabetes Mild recurrent major depression Morbid obesity Hypovitaminosis D Depression with anxiety GERD (gastroesophageal reflux disease) Pure hypercholesterolemia Diabetes mellitus Surgical History H/O eye surgery Family History Father Diabetes Hypertension CVD (cardiovascular disease) Mother Anxiety Diabetes Maternal Grandmother Cancer Paternal Uncle Diabetes Stroke Paternal Aunt Diabetes Maternal Grandmother Liver cancer Family/Other FH: mental illness Mental health disorder Social History Housing: Apartment Alcohol intake: current Alcohol intake frequency: holidays/special occasions only Alcohol type: beer Patient Tobacco Use Status: Former Tobacco user Tobacco use type: Cigarette e-Cigarette/Vaping Use: Never Used Second Hand Smoke Exposure: No service: No Current occupational status: employed 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 Absence of acromegalic features. Neck exam reveals nl size thyroid about 15 gms. No thyroid nodules palpable. No carotid bruits present. Lungs CTA. Heart S1 S2, Reg R/R. No M/R/ G. Skin exam reveals absence of vitiligo or acanthosis nigricans. Abdominal exam reveals Soft NT/ND with NA BS. No organomegaly present. Const Other: Absence of Cushingoid features. Absence of acromegalic features. Neck exam revea ls nl size thyroid about 15 gms. No thyroid nodules palpable. No carotid bruits present. Lungs CTA. Heart S1 S2, Reg R/R. No M/R G. Skin exam reveals absence of vitiligo or acanthosis nigricans. No edema Neck Other: . Extrem Other: Visual exam of foot performed. No ulcerations or open lesions. No onchomycosis, + callouses 5th great toes bilaterally.Pulses 2 + distally Sensation intact to monofilament exam. Vibratory sensation sensed is intact with 128 Hz tuning fork Quality Reporting (2019) Adult ([facility] 138/06/21/68) Smoking risk assessment performed?: Yes Patient Tobacco Use Status: Former Tobacco user Results Reviewed Results Reviewed: Laboratory Tests 11/15/22 11/22/22 11/22/22 08:18 08:25 08:29 Plt Count 245 Potassium 4.2 Creatinine 0.87 Estimated GFR > 60 Hgb A1c (Clinic) 8.3 H AST 27 ALT 29 Triglycerides 152 Cholesterol 123 LDL Cholesterol, Calc 56 HDL Cholesterol 37 25-OH Vitamin D Total 27.3 Urine Microalbumin 20.0 03/26/23 08/27/23 01/09/24 08:15 09:35 10:27 Plt Count Potassium Creatinine Estimated GFR Hgb A1c (Clinic) 7.9 H 10.8 H 7.4 H AST ALT Triglycerides Cholesterol LDL Cholesterol, Ca for test pituitary case see lc HDL Cholesterol 25-OH Vitamin D Total Urine Microalbumin Assessment & Plan Assessment & Plan (1) Diabetes mellitus: Code(s): E11.9 - Type 2 diabetes mellitus without complications Category: Medical Qualifiers: Diabetes mellitus type: type 2 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 Last A1c 7.4% last week. He has had an increase in Ozempic over the last month and reports his numbers have improved. Continue current medications and I will see him back in 3 months in order full set a labs and A1c at that time. He was asked to check his Dexcom and if his numbers 2 hours postprandial are not less than 160-180 he will contact the clinic and we can consider adding 1 dose of short-acting insulin for the meal that is not at target. Patient Instructions: The patient was counseled to achieve a target A1C of 7% (154 avg). Fasting blood sugars should be 90-130 in the morning and less than 180 two hours after meals. Reviewed the relationship between poor diabetic control and the developement of complications The patient was counseled to always carry a source of sugar, can recheck in 15 min and retreat as needed The patient was counseled to wear closed toe shoes, never walk barefooted and to inspect the feet daily. For any signs of infection or open wound patient should notify PCP or go to urgent care. Coding Level of Care Code New Pt Level 4 (91426) Complex EM visit Add On G2211 Diagnoses Type 2 diabetes mellitus with hyperglycemia, with long-term current use of insulin E11.65; Z79.4 Diabetes mellitus type: type 2 Diabetes mellitus senior living insulin use: with local intermodal truck driver use Diabetes mellitus complication status: with hyperglycemia Time Spent (min) 35 Comment Time spent reviewing labs/provider notes, face to face, chart doc
[2024-01-15 11:02] VITALS: BP 118/72; PULSE 87; BMI 42.1
[2024-01-15 11:12] LABS: Glucose, Whole Blood 91 mg/dL (60-115)
== END 2024-01-15 11:42 | disposition home or self-care (01) ==
PROVIDERS: PCP Internal Medicine; Visit Provider Nurse Practitioner Adult Health
DX: E11.65 Type 2 diabetes mellitus with hyperglycemia (principal); Z79.4 Long term (current) use of insulin
CPT/HCPCS: 99204; G2211

== ENCOUNTER → 2024-01-15 10:52 | Outpatient (BNVA) | payer OTHER, SELFPAY | PROVIDERS: PCP Internal Medicine; Visit Provider Nurse Practitioner Adult Health | DX: E11.65 Type 2 diabetes mellitus with hyperglycemia (principal); Z79.4 Long term (current) use of insulin | CPT/HCPCS: 82947; 99202 ==

== ENCOUNTER 2024-02-05 08:52 | Outpatient (AMB) | payer OTHER, SELFPAY ==
[2024-02-05 09:12] VITALS: BMI 41.9
--- NOTE | 2024-02-05 09:12 | A.OFFVIS_ITS ---
Vital Signs 02/05/24 09:12 Height 5 ft 10 in Weight 292 lb BMI 41.9 Intake Visit Reasons: Follow up Intake Note: Patient presents for follow up. patient still having shakes Allergies shellfish derived [SHELLFISH DERIVED] Allergy (Severe, Verified 02/05/24 09:16) ANAPHYLAXIS metformin Adverse Reaction (Intermediate, Verified 02/05/24 09:16) diarrhea HPI Comments Details: 47- yr-old male presents for new pt evaluation of tremor w/ PMH: Depression, Diabetes, BUE, R > L, carpal tunnel syndrome- dx'd 6 months ago. Pt reports his bilateral hand tremor is stable, still intermittent. Not interfering w/ his ADLs. 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 On f/u w/./ pt= pt deneid any known h/o skull injury or cranium pain. 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 Pt is right handed. ADL status: Ind IADL status: Ind Fine-motor skills: No issues. Micrographia: No changes noted. Vision changes: states vision is poor- r/t his diabetes Hypophonia: sometimes he can speak very softly or will mumble Hyposmia: Denies Dysphagia: Denies Drooling: Denies Orthostatic lightheadedness: Sometimes, transient. Constipation: Sometimes- possibly d/t ozempic Slowness: Slower overall Freezing episodes: Denies Tremor: as above Involuntary movements: May blink at times Dyskinesia: Denies Stiffness: Denies Paresthesias: BUE R > L numbness and tingling- can wake up with numb hands- does use a wrist splint qhs prn pain so has not been using a she has not had pain. No recent pain. Missed his ortho f/u appt. Gait changes: Denies. Denies falls. Sleep difficulty: Using his Parasomnias: Better when he uses his CPAP. He denies punching/kicking/getting OOB. Memory impairment: Can be forgetful. Sometimes can lose his train of thought. Mood: States mood is ok.- maybe anxious. Has a psychiatrist and a therapist. Hallucinations: Not feeling like someone is looking at him. Usual exercise: No usual exercise. 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 - Unremarkable noncontrast MRI of the brain. 10/25/23, CT/CT head/brain wo IV con IMPRESSION: No acute intracranial abnormalities. 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 This is benign. No aggressive characteristics. [facility] Medical History Panic attack Anxiety Diabetes Mild recurrent major depression Morbid obesity Hypovitaminosis D Depression with anxiety GERD (gastroesophageal reflux disease) Pure hypercholesterolemia Diabetes mellitus Surgical History H/O eye surgery Family History Father Diabetes Hypertension CVD (cardiovascular disease) Mother Anxiety Diabetes Maternal Grandmother Cancer Paternal Uncle Diabetes Stroke Paternal Aunt Diabetes Maternal Grandmother Liver cancer Family/Other FH: mental illness Mental health disorder Social History Housing: Apartment Alcohol intake: current Alcohol intake frequency: holidays/special occasions only Alcohol type: beer Patient Tobacco Use Status: Former Tobacco user Tobacco use type: Cigarette e-Cigarette/Vaping Use: Never Used Second Hand Smoke Exposure: No service: No Current occupational status: employed 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 Expression: Ok Voice: Soft but audible (? baseline) Tremor: No RUE tremor noted today. Tone: Very mild right elbow tone. Dyskinesia: None FFM: Very mild decrease is right upper extremity. Foot taps: Very mild decrease in right lower extremity Gait: Slight decreased arm swing, very subtle possible right lower foot drop, steady. Psych: Pleasant affect Psych Mental Status: mental status grossly normal Affect: normal affect Attitude: cooperative Thought process: Normal thought process present Quality Reporting (2019) Adult ([facility] 138/06/21/68) Smoking risk assessment performed?: Yes Patient Tobacco Use Status: Former Tobacco user Assessment & Plan Assessment & Plan (1) Tremors of nervous system: Comment: ? early movement d/o, ? CV etiology, ? CTS. 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 Code(s): D16.4 - Benign neoplasm of bones of skull and face Category: Medical Plan Reviewed brain MRI report- no findings to account for pt's tremor. 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 Consider f/u imaging in 1 yr or sooner if clinical s/s develop. Again follow-up with Orthopedics- will request f/u appt. Encouraged pt to use wrist splint qhs- for numbness and tingling. Continue CPAP nightly- will request current Tiff PAP compliance report. Increase physical activity as tolerated. Consider referral to PT and/or OT after ortho consult. Follow-up in 6 months or sooner as needed. Coding Level of Care Code Est Pt Level 4 (60929) Diagnoses Tremors of nervous system R25.1 Carpal tunnel syndrome, right G56.01 VALENTÍN (obstructive sleep apnea) G47.33 Osteoma of skull D16.4
== END 2024-02-05 09:49 | disposition home or self-care (01) ==
PROVIDERS: PCP Internal Medicine; Visit Provider Nurse Practitioner Family
DX: R25.1 Tremor, unspecified (principal); G56.01 Carpal tunnel syndrome, right upper limb; G47.33 Obstructive sleep apnea (adult) (pediatric); D16.4 Benign neoplasm of bones of skull and face
CPT/HCPCS: 99214

== ENCOUNTER → 2024-02-05 08:52 | Outpatient (BNVA) | payer OTHER, SELFPAY | PROVIDERS: PCP Internal Medicine; Visit Provider Nurse Practitioner Family | DX: R25.1 Tremor, unspecified (principal); G56.01 Carpal tunnel syndrome, right upper limb; G47.33 Obstructive sleep apnea (adult) (pediatric); D16.4 Benign neoplasm of bones of skull and face | CPT/HCPCS: 99212 ==

== ENCOUNTER 2024-03-11 11:14 | Outpatient (AMB) | payer OTHER, SELFPAY ==
--- NOTE | 2024-03-11 11:39 | A.OFFVIS_ITS ---
Vital Signs 03/11/24 11:42 Height 5 ft 10 in Weight 292 lb BMI 41.9 Intake Visit Reasons: OV- Right hand CTS Intake Note: Alfonso 48 year old right hand dominant male who presents today for evaluation of right carpal tunnel syndrome confirmed on EMG performed 09/21/22. Patient reports worsening right hand numbness and tingling as well as difficulty opening and closing jars. Patient states he has weakness and difficulty gripping or squeezing. Has tried hand brace. Patient would like to discuss surgery today. 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 Complains of numbness and tingling in both hands right worse than left. He says the he primarily has numbness in the right middle ring and small fingers, and that it occurs everyday, particularly at night. He was seen in the summer of 2022, and at that time had dense numbness in the median nerve distribution and was signed up for a right carpal tunnel release. However his hemoglobin A1c was 10.8 and surgery needed to be delayed until he got better control of his diabetes. [facility] Medical History (Updated 03/11/24 @ 12:29 by Deborah Castano MD) Carpal tunnel syndrome, right Panic attack Anxiety Diabetes Mild recurrent major depression Morbid obesity Hypovitaminosis D Depression with anxiety GERD (gastroesophageal reflux disease) Pure hypercholesterolemia Diabetes mellitus Surgical History H/O eye surgery Family History Father Diabetes Hypertension CVD (cardiovascular disease) Mother Anxiety Diabetes Maternal Grandmother Cancer Paternal Uncle Diabetes Stroke Paternal Aunt Diabetes Maternal Grandmother Liver cancer Family/Other FH: mental illness Mental health disorder Social History Housing: Apartment Alcohol intake: current Alcohol intake frequency: holidays/special occasions only Alcohol type: beer Patient Tobacco Use Status: Former Tobacco user Tobacco use type: Cigarette e-Cigarette/Vaping Use: Never Used Second Hand Smoke Exposure: No service: No Current occupational status: employed 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 He can actively extend all of his digits and bring them close to a fist. No locking or catching. He did have some numbness today to the tips of the small ring and middle fingers. He claim normal sensation this time to the thumb and index finger. No intrinsic or thenar wasting. Good finger cross and APB muscle belly firing. Nerve Conduction Study: Performed on the right side only IMPRESSION:? Mild to moderate right median neuropathy across carpal tunnel. ? M Shayne Hartley MD 09/21/2022 Quality Reporting (2019) Adult ([facility] 138/06/21/68) Smoking risk assessment performed?: Yes Patient Tobacco Use Status: Former Tobacco user Assessment & Plan Assessment & Plan (1) Carpal tunnel syndrome of right wrist: Code(s): G56.01 - Carpal tunnel syndrome, right upper limb Category: Medical Plan Assessment and plan: 1. Right carpal tunnel syndrome, mild to moderate Last summer with dense numbness in the median nerve distribution. Today he talks about having numbness more in the middle ring and small fingers. Nerve conduction study consistent with right [id number] carpal tunnel syndrome only Right carpal tunnel release originally planned for last year, but delayed because of elevated hemoglobin A1c. I educated the patient about this condition We discussed operative and non operative treatment options. I am recommending a right carpal tunnel release at this time. I did talk to him about the median nerve distribution versus the ulnar nerve distribution. If he continues to have symptoms in the ulnar nerve distribution we may repeat the nerve conduction study and further evaluate this issue. The risks and benefits of operative treatment were discussed with the patient and the patient wishes to proceed with surgery. These risks include, but are not limited to risk of damage to blood vessels, nerves, tendons, infection, recurrence, incomplete relief of preoperative symptoms, persistent pain, possible need for further surgery and the risks associated with regional blocks and anesthesia. The plan is to take the patient to the operating room for the following procedures: 1. Right carpal tunnel release under local 2. [ ] All of the preoperative paperwork including the consent was filled out today. All the patient's questions were answered. 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 His hemoglobin A1c on 01/23/2024 was 7.4. This is improved from 10.8 last year. He denies being on blood thinners. Coding Level of Care Code Est Pt Level 4 (21308) Diagnoses Carpal tunnel syndrome of right wrist G56.01
[2024-03-11 11:42] VITALS: BMI 41.9
== END 2024-03-11 12:13 | disposition home or self-care (01) ==
PROVIDERS: PCP Internal Medicine; Visit Provider Orthopaedic Surgery
DX: G56.01 Carpal tunnel syndrome, right upper limb (principal)
CPT/HCPCS: 99214

== ENCOUNTER → 2024-03-11 11:14 | Outpatient (BNVA) | payer OTHER, SELFPAY | PROVIDERS: PCP Internal Medicine; Visit Provider Orthopaedic Surgery | DX: G56.01 Carpal tunnel syndrome, right upper limb (principal); E11.9 Type 2 diabetes mellitus without complications | CPT/HCPCS: 99212 ==

== ENCOUNTER 2024-04-15 11:18 | Outpatient (AMB) | payer OTHER, SELFPAY ==
--- NOTE | 2024-04-15 11:24 | A.OFFVIS_ITS ---
Vital Signs 04/15/24 11:27 Height 5 ft 10 in Weight 299 lb 2.676 oz BMI 42.9 BP 142/82 H Blood Pressure Location Rt brachial Position Sitting Pulse 84 Pulse Source Pulse Oximeter Intake Visit Reasons: DM/CONF Intake Note: Patient present today to follow up on Type 2 Diabetes Mellitus. Last Diabetic Eye exam: 12/20/2023, Patient report he is receiving eye injections monthly, next injection on on 04/21/24. Last Podiatry Visit: Does not see a Trimmer Loader Random Glucose: 106 mg/dl HgA1C: 6.8% 04/15/24 Surface Grinding Machine Hand Required: No Accompanied by: Self / Same As Patient Allergies shellfish derived [SHELLFISH DERIVED] Allergy (Severe, Verified 04/15/24 11:28) ANAPHYLAXIS metformin Adverse Reaction (Intermediate, Verified 04/15/24 11:28) diarrhea Medication List - Last Reconciled 04/15/24 by Nestor Chavez MD atorvastatin 40 mg PO DAILY 90 days CPAP (CPAP Machine/Device) autoPAP mode 6-20 cmH2O docusate sodium (Colace) 100 mg PO BID escitalopram oxalate 30 mg PO DAILY hydroxyzine pamoate 25 mg PO BEDTIME insulin glargine (Lantus U-100 Insulin) 30 units (0.3 mL) subcut DAILY 90 days insulin syringe-needle U-100 (BD Insulin Syringe Ultra-Fine) 0.5 mL miscellaneous DAILY 90 days lorazepam 1 mg PO BEDTIME PRN pioglitazone 45 mg PO DAILY semaglutide (Ozempic) 2 mg (0.75 mL) subcut QWEEK 4 weeks Ventolin HFA 90 mcg/actuation (albuterol sulfate) 2 puffs inhalation Q6H PRN NS HPI Comments Details: 48 YO male who is seen in consultation for T2DM at the request of PCP. He has previously been followed at [facility] endocrinology. He last saw Vesna Rousseau on 01/15/24 Initially diagnosed with T2DM approx 2019. Was initially started on treatment with: Metformin caused diarrhea Jardiance caused UTI Glipizide caused hypoglycemia Current regimen: Lantus 30 units Pioglitazone 45 mg daily Semaglutide 2.0 mg weekly He is on a dexcom with [employer] mateo. Unable to download at this visit. He reports he is running less than 130 in the morning. Later in the day 180. Viwed Dexcom on phone. Avg 145 with GMI ogf 6.8 89% in range and 10% hyperglycemia and <1 % hypoglycemia Reports low sugars very rare. Treats lows with juice Checks sugar after to ensure it is rising. Has eyes checked several times per year, last appt last mo has proliferative diabetic retinopathy,has had injections in the past which will be restarted + neuropathy: has numbness tingling and pain. ,does not see podiatry. No nephropathy, not on KARMA/ARB Labs 11/22/22 microalbumin 20 eGFR >60 Has HLD, on statin. Last LDL 56 as measured on 10/2022. Denies CAD. Diet:trys to balance Weight:reports weight down 10 pounds this summer since increase of [employer] screen Fibrosis-4 (Fib-4) Index for liver fibrosis (calculated on lab work done: 11/22/2022) 0.96 points Advanced fibrosis excluded Approximate Fibrosis stage Kavita 0-1 *Use with caution in patients <35 or >65 years old, as the score has been shown to be less reliable in these patients. Prior Imaging none Action Plan: rescreen two years from date of screening labs due 11/22/2024 [facility] Medical History (Updated 03/11/24 @ 12:29 by Deborah Castano MD) Carpal tunnel syndrome, right Panic attack Anxiety Diabetes Mild recurrent major depression Morbid obesity Hypovitaminosis D Depression with anxiety GERD (gastroesophageal reflux disease) Pure hypercholesterolemia Diabetes mellitus Surgical History H/O eye surgery Family History Father Diabetes Hypertension CVD (cardiovascular disease) Mother Anxiety Diabetes Maternal Grandmother Cancer Paternal Uncle Diabetes Stroke Paternal Aunt Diabetes Maternal Grandmother Liver cancer Family/Other FH: mental illness Mental health disorder Social History Housing: Apartment Alcohol intake: current Alcohol intake frequency: holidays/special occasions only Alcohol type: beer Patient Tobacco Use Status: Former Tobacco user Tobacco use type: Cigarette e-Cigarette/Vaping Use: Never Used Second Hand Smoke Exposure: No service: No Current occupational status: employed 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 Absence of acromegalic features. Neck exam reveals nl size thyroid about 15 gms. No thyroid nodules palpable. No carotid bruits present. Lungs CTA. Heart S1 S2, Reg R/R. No M/R/ G. Skin exam reveals absence of vitiligo or acanthosis nigricans. Abdominal exam reveals Soft NT/ND with NA BS. No organomegaly present. Neck Other: . Extrem Other: Visual exam of foot performed. No ulcerations or open lesions. No onchomycosis, no callouses.Pulses 2 + distally Sensation intact to monofilament exam. Vibratory sensation sensed is intact with 128 Hz tuning fork Results AMB Hemoglobin A1c AMB Hemoglobin A1c 6.8 % Last Edit by SARANYA Dior on 04/15/24 11:48 Quality Reporting (2019) Adult ([facility] 138//) Smoking risk assessment performed?: Yes Patient Tobacco Use Status: Former Tobacco user Results Reviewed Results Reviewed: Laboratory Last Values Glucose (Clinic) 106 mg/dL (60-115) 04/15/24 11:36 Assessment & Plan Assessment & Plan (1) Diabetes mellitus: Code(s): E11.9 - Type 2 diabetes mellitus without complications Category: Medical Qualifiers: Diabetes mellitus complication status: with hyperglycemia Diabetes mellitus skilled nursing insulin use: with pipe bowls paint trimmer use Diabetes mellitus type: type 2 Qualified Code(s): E11.65 - Type 2 diabetes mellitus with hyperglycemia; Z79.4 - window framer (current) use of insulin Plan: This is a 48-year-old male with a history of type 2 diabetes being treated with Ozempic, Actos and basal insulin with excellent improved glycemic control and known microvascular complications namely proliferative retinopathy Plan is to continue the current regimen for now . I considered switching the Ozempic to Mounjaro in light of the proliferative retinopathy and might obtain greater weight loss with Mounjaro. However patient has excellent control on the Ozempic but was reluctant to make that change today. I will have the patient follow up with Regina Dasilva NP in 6 wks who could then revisit this question . Patient should have lipid profile microalbumin to creatinine ratio ordered by his primary care provider Orders: Orders AMB Hemoglobin A1c Today E11.65 - Type 2 diabetes mellitus with hyperglycemia, Z79.4 - halfway (current) use of insulin Coding Level of Care Code Est Pt Level 4 (64914) Complex EM visit Add On G2211 Diagnoses Type 2 diabetes mellitus with hyperglycemia, with long-term current use of insulin E11.65; Z79.4 Diabetes mellitus complication status: with hyperglycemia Diabetes mellitus pipe bowls paint trimmer insulin use: with skilled nursing use Diabetes mellitus type: type 2
[2024-04-15 11:27] VITALS: BP 142/82; PULSE 84; BMI 42.9
[2024-04-15 11:41] LABS: Glucose, Whole Blood 106 mg/dL (60-115)
== END 2024-04-15 11:52 | disposition home or self-care (01) ==
PROVIDERS: PCP Internal Medicine; Visit Provider Internal Medicine Endocrinology, Diabetes & Metabolism
DX: E11.65 Type 2 diabetes mellitus with hyperglycemia (principal); Z79.4 Long term (current) use of insulin
CPT/HCPCS: 99214; G2211

== ENCOUNTER → 2024-04-15 11:18 | Outpatient (BNVA) | payer OTHER, SELFPAY | PROVIDERS: PCP Internal Medicine; Visit Provider Internal Medicine Endocrinology, Diabetes & Metabolism | DX: E11.65 Type 2 diabetes mellitus with hyperglycemia (principal); Z79.4 Long term (current) use of insulin; Z79.84 Long term (current) use of oral hypoglycemic drugs | CPT/HCPCS: 82947; 83036; 99212 ==

== ENCOUNTER 2024-05-19 08:40 | Day surgery (SDC) | payer OTHER, SELFPAY ==
[2024-05-19 09:38] VITALS: BMI 42.9
[2024-05-19 09:39] VITALS: BP 143/72; PULSE 82; RESP 16; TEMP 36.6; O2SAT 97
--- NOTE | 2024-05-19 10:10 | MHC.SHP ---
Pre-Procedural Eval Section A - 24 Hr Update-Section A only Date of Service: 05/19/24 The patient is an INPATIENT: No Changes since office visit: No Cold of Flu in the past 2 weeks, No New Medical Problems, No Changes in Medication and No Patient answered all questions The patient has been examined within 24 hours of the surgical procedure. The History & Physical has been completed within 30 days and I have reviewed it.: Yes Section B - Complete if H&P > 30 days Chief Complaint: Carpal tunnel syndrome, right upper limb Allergies: Allergies Allergy/AdvReac Type Severity Reaction Status Date / Time shellfish derived Allergy Severe ANAPHYLAXIS Verified 04/15/24 11:28 [SHELLFISH DERIVED] metformin AdvReac Intermediate diarrhea Verified 04/15/24 11:28 Plan Diagnosis/Plan: Unchanged I have reviewed the history and physical and performed a pertinent physical examination on my patient. No changes have occurred unless specified. Time Spent With Patient Time: Total time managing care of this patient today ____ minutes.
--- NOTE | 2024-05-19 10:15 | P.OP_ITS ---
Operative Note Operative Note Date of Service: 05/19/24 Narrative: Preop diagnosis: 1. Right Carpal tunnel syndrome Postop diagnosis: same Procedure: 1. Right Carpal tunnel release Surgeon: Deborah Castano MD Rv Service Technician: None Anesthesia: local block using 1% lidocaine with epinephrine Findings: Thickened transverse carpal ligament. EBL: Less than 5 mL Specimens: None Complications: None Disposition: Brought to recovery room in stable condition Plan: Follow-up for 10-14 days for wound check and suture removal Indications: The patient is 48 years old, with right carpal tunnel syndrome that has been unresponsive to nonoperative management. The risks and benefits of operative treatment including but not limited to risk of damage to blood vessels, nerves, tendons, infection, persistent pain, persistent symptoms, or possible need for additional surgery were discussed with the patient and the patient wishes to proceed with surgery. Procedure: Once consent was obtained a local block was performed using a combination of 1% lidocaine with epinephrine. The patient was then brought back to the operating suite and placed on the operative table in supine position. The right upper extremity was prepped and draped in a standard surgical fashion. Once assured that we had a good block, a 2.0 cm longitudinal incision was made centered over the carpal tunnel. The incision was made through the skin to the subcutaneous tissues using a #15 blade. Dissection was made down to the level of the transverse carpal ligament with care being taken to protect the palmar cutaneous nerve. Once the transverse carpal ligament was clearly visualized, a longitudinal incision was made in the transverse carpal ligament 1st using a #15 blade, then using tenotomy scissors under direct visualization. Care was taken to look for and protect the motor branch of the median nerve when seen in this area. Once satisfied with our carpal tunnel release the wound was copiously irrigated with normal saline and hemostasis was obtained with a brief period of local pressure. The skin edges were reapproximated with some 5.0 nylon suture material and a sterile dressing was applied. The patient appears to have tolerated the procedure well and with no complic ations. All digits were well vascularized at the conclusion of the case.
[2024-05-19 11:19] VITALS: BP 148/80; PULSE 80; RESP 16; O2SAT 97
== END 2024-05-19 11:20 | disposition home or self-care (01) ==
PROVIDERS: PCP Internal Medicine; Visit Provider Orthopaedic Surgery
PROC: (CPT 64721; principal; 2024-05-19 10:10)
DX: G56.01 Carpal tunnel syndrome, right upper limb (principal); R20.0 Anesthesia of skin; R20.2 Paresthesia of skin; R53.1 Weakness; E11.9 Type 2 diabetes mellitus without complications; E78.00 Pure hypercholesterolemia, unspecified; E55.9 Vitamin D deficiency, unspecified; K21.9 Gastro-esophageal reflux disease without esophagitis; F33.0 Major depressive disorder, recurrent, mild; F41.0 Panic disorder [episodic paroxysmal anxiety]; E66.01 Morbid (severe) obesity due to excess calories; Z68.41 Body mass index [BMI] 40.0-44.9, adult; Z88.8 Allergy status to other drugs, medicaments and biological substances; Z98.890 Other specified postprocedural states; Z87.891 Personal history of nicotine dependence
CPT/HCPCS: 64721; J0171; J2003

== ENCOUNTER → 2024-05-19 08:40 | Outpatient (BNV) | payer OTHER, SELFPAY | PROVIDERS: PCP Internal Medicine; Visit Provider Orthopaedic Surgery | DX: G56.01 Carpal tunnel syndrome, right upper limb (principal) | CPT/HCPCS: 64721 ==

== ENCOUNTER 2024-05-27 11:16 | Outpatient (AMB) | payer OTHER, SELFPAY ==
--- NOTE | 2024-05-27 11:21 | MHC.OFFVIS ---
Vital Signs 05/27/24 11:30 05/27/24 11:54 Height 5 ft 10 in Weight 302 lb 0.533 oz BMI 43.3 BP 142/90 H 132/82 Blood Pressure Location Rt brachial Position Sitting Pulse 70 Pulse Source Pulse Oximeter Intake Visit Reasons: DM Intake Note: Patient presents today for a follow-up on Type 2 Diabetes Mellitus: Last Diabetic eye exam was on: 12/20/2023, Patient reports receiving eye injections, last injection was on 04/21/24. Last Podiatry exam was on: Patient does not see a Ramp Service Employee Most recent HbA1c: 6.8% 04/15/2024 Random Glucose- 6.8% mg/dL, Today Navy Diver Required: No Accompanied by: Self / Same As Patient Allergies shellfish derived [SHELLFISH DERIVED] Allergy (Severe, Verified 05/27/24 11:23) ANAPHYLAXIS metformin Adverse Reaction (Intermediate, Verified 05/27/24 11:23) diarrhea Medication List - Last Reconciled 05/27/24 by Regina Agarwal NP atorvastatin 40 mg PO DAILY 90 days CPAP (CPAP Machine/Device) autoPAP mode 6-20 cmH2O docusate sodium (Colace) 100 mg PO BID escitalopram oxalate 30 mg PO DAILY hydrocodone-acetaminophen 5-325 mg 1 tab PO Q4-6H PRN hydroxyzine pamoate 25 mg PO BEDTIME insulin glargine (Lantus U-100 Insulin) 30 units (0.3 mL) subcut DAILY 90 days insulin syringe-needle U-100 (BD Insulin Syringe Ultra-Fine) 0.5 mL miscellaneous DAILY 90 days lorazepam 1 mg PO BEDTIME PRN pioglitazone 45 mg PO DAILY semaglutide (Ozempic) 2 mg (0.75 mL) subcut QWEEK 4 weeks Ventolin HFA 90 mcg/actuation (albuterol sulfate) 2 puffs inhalation Q6H PRN NS HPI Comments Details: 48 YO male who is seen in f/u for T2DM. He last saw Dr. Chavez on 01/15/24 on 04/25/24. Initially diagnosed with T2DM approx 2019. He has previously been followed at [facility] endocrinology. Was initially started on treatment with: Metformin caused diarrhea Jardiance caused UTI Glipizide caused hypoglycemia Current regimen: Lantus 30 units Pioglitazone 45 mg daily Semaglutide 2.0 mg weekly Reports low sugars: none recent Reports numbers in good control but does not have sensor with him (on [employer] mateo/dexcom) Treats lows with juice Checks sugar after to ensure it is rising. Has eyes checked several times per year, last appt last mo has injection scheduled for this week has proliferative diabetic retinopathy hypertensive changes in the eyes + neuropathy: has numbness tingling and pain, does not see podiatry. No nephropathy, not on KARMA/ARB Labs 11/22/22 microalbumin 20 eGFR >60 Has HLD, on statin. Last LDL 56 as measured on 10/2022. Denies CAD. Uses CPAP regularly. Diet:trys to balanlost 3 pounds since last visit reports stress eating Weight: [facility] Medical History Carpal tunnel syndrome, right Panic attack Anxiety Diabetes Mild recurrent major depression Morbid obesity Hypovitaminosis D Depression with anxiety GERD (gastroesophageal reflux disease) Pure hypercholesterolemia Diabetes mellitus Surgical History (Updated 05/27/24 @ 11:34 by SARANYA Reece) History of carpal tunnel surgery H/O eye surgery Family History Father Diabetes Hypertension CVD (cardiovascular disease) Mother Anxiety Diabetes Maternal Grandmother Cancer Paternal Uncle Diabetes Stroke Paternal Aunt Diabetes Maternal Grandmother Liver cancer Family/Other FH: mental illness Mental health disorder Social History Housing: Apartment Alcohol intake: current Alcohol intake frequency: holidays/special occasions only Alcohol type: beer Patient Tobacco Use Status: Former Tobacco user Tobacco use type: Cigarette e-Cigarette/Vaping Use: Never Used Second Hand Smoke Exposure: No service: No Current occupational status: employed 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 Absence of acromegalic features. Neck exam reveals nl size thyroid about 15 gms. No thyroid nodules palpable. Heart S1 S2, Reg R/R. No M/R G. Skin exam reveals absence of vitiligo or acanthosis nigricans. Visual exam of foot performed. No ulcerations or open lesions. No inter digit maceration or fissuring. No onychomycosis, no callouses. Sensation intact to monofilament exam. Vibratory sensation is normal with 128 Hz tuning fork.good cap refill Quality Reporting (2019) Adult ([facility] 138//) Smoking risk assessment performed?: Yes Patient Tobacco Use Status: Former Tobacco user Results Reviewed Results Reviewed: Laboratory Last Values Glucose (Clinic) 104 mg/dL (60-115) 05/27/24 11:31 Assessment & Plan Assessment & Plan (1) Diabetes mellitus: Code(s): E11.9 - Type 2 diabetes mellitus without complications Category: Medical Qualifiers: Diabetes mellitus type: type 2 Diabetes mellitus termite exterminator helper insulin use: with termite exterminator helper use Diabetes mellitus complication status: with hyperglycemia Qualified Code(s): E11.65 - Type 2 diabetes mellitus with hyperglycemia; Z79.4 - detention (current) use of insulin Plan: Type 2 diabetic with improving glycemic control. Continue current medication and restart sensor. Reviewed mindfulness strategies to aide in preventing stress eating, The patient had an opportunity to ask questions regarding treatment plan. The patient expressed understanding and agreement with the above treatment plan. The patient is aware they should contact our office by phone for worsening glucose readings or for any low blood sugars which may warrant a change in diabetes medication. Compliance is encouraged with medications and any followup testing/consults which may have been ordered. Patient Instructions: Check your feet daily looking for any signs of infection, drainage, redness, ulceration and seek medical attention if this occurs. Break in shoes gradually and do not wear open-toed shoes or walk stocking footed or barefooted. The patient was counseled to achieve a target A1C of 7% (154 avg). Fasting blood sugars should be 90-130 in the morning and less than 180 two hours after meals. Reviewed the relationship between poor diabetic control and the development of complications. Take 15 carb carbohydrate grams to treat a low sugar (3-4 glucose tablets, half a glass of juice or 15 carbohydrate grams of soft candy such as gummie snacks). Recheck your sugar in 15 minutes and re-treat again with 15 carbohydrate grams if low or still with symptoms. Do not drive a car or operate machinery if you do not know what your blood sugar is, if it is low or in excess of 300. Coding Level of Care Code Est Pt Level 4 (95902) Diagnoses Type 2 diabetes mellitus with hyperglycemia, with long-term current use of insulin E11.65; Z79.4 Diabetes mellitus type: type 2 Diabetes mellitus termite exterminator helper insulin use: with shelter use Diabetes mellitus complication status: with hyperglycemia Time Spent (min) 30 Comment Time spent reviewing labs/provider notes, face to face, chart doc
[2024-05-27 11:30] VITALS: BP 142/90; PULSE 70; BMI 43.3
[2024-05-27 11:41] LABS: Glucose, Whole Blood 104 mg/dL (60-115)
[2024-05-27 11:54] VITALS: BP 132/82
== END 2024-05-27 11:57 | disposition home or self-care (01) ==
PROVIDERS: PCP Internal Medicine; Visit Provider Nurse Practitioner Adult Health
DX: E11.65 Type 2 diabetes mellitus with hyperglycemia (principal); Z79.4 Long term (current) use of insulin
CPT/HCPCS: 99214

== ENCOUNTER → 2024-05-27 11:16 | Outpatient (BNVA) | payer OTHER, SELFPAY | PROVIDERS: PCP Internal Medicine; Visit Provider Nurse Practitioner Adult Health | DX: E11.65 Type 2 diabetes mellitus with hyperglycemia (principal); Z79.4 Long term (current) use of insulin | CPT/HCPCS: 82947; 99212 ==

== ENCOUNTER → 2024-06-04 14:51 | Outpatient (BNVA) | payer OTHER, SELFPAY | PROVIDERS: PCP Internal Medicine | DX: Z47.89 Encounter for other orthopedic aftercare (principal); Z98.890 Other specified postprocedural states | CPT/HCPCS: 99212 ==

== ENCOUNTER 2024-08-26 10:37 | Outpatient (AMB) | payer OTHER, SELFPAY ==
--- NOTE | 2024-08-26 07:44 | MHC.OFFVIS ---
Vital Signs 08/26/24 10:44 Height 5 ft 11 in Weight 301 lb 9.478 oz BMI 42.1 BP 126/84 Blood Pressure Location Lt brachial Position Sitting Pulse 81 Pulse Source Pulse Oximeter Pulse Oximetry (%) 97 Oxygen Delivery Method Room Air Intake Visit Reasons: DM Intake Note: Patient presents today for a follow-up on Type 2 Diabetes Mellitus: Last Diabetic eye exam was on: 04/21/24 Pt getting eye injections. Last Podiatry exam was on: Patient does not see a Clicking Machine Operator Most recent HbA1c: 7.2% Random Glucose- 106 mg/dL Certified Midwife Required: No Accompanied by: Self / Same As Patient Allergies shellfish derived [SHELLFISH DERIVED] Allergy (Severe, Verified 08/26/24 10:47) ANAPHYLAXIS metformin Adverse Reaction (Intermediate, Verified 08/26/24 10:47) diarrhea HPI Comments Details: 48 YO male who is seen in f/u for T2DM. He was last seen 05/27/2024. A1c 6.8% on 04/15/2024. 08/26/2024 hemoglobin A1c % Initially diagnosed with T2DM approx 2019. He has previously been followed at [facility] endocrinology. Was initially started on treatment with: Metformin caused diarrhea Jardiance caused UTI Glipizide caused hypoglycemia Current regimen: Lantus 30 units Pioglitazone 45 mg daily Semaglutide 2.0 mg weekly I am unable to download sensor today but issue resolved. A.m. readings 130s, later in the day can be higher than 180 after meals Reports low sugars: none recent Treats lows with juice Checks sugar after to ensure it is rising. Has eyes checked several times per year, has proliferative diabetic retinopathy hypertensive changes in the eyes: is being followed regularly + neuropathy: has numbness tingling and pain, does not see podiatry. No nephropathy, not on KARMA/ARB Labs 11/22/22 microalbumin 20 eGFR >60 Has HLD, on statin. Last LDL 56 as measured on 10/2022. He has orders for fasting blood work in EHR. Denies CAD. Denies symptoms of chest pain, dyspnea or claudication. Uses CPAP regularly. Diet:trys to balance, reports stress eating Weight:down two pounds PFSH Medical History Carpal tunnel syndrome, right Panic attack Anxiety Diabetes Mild recurrent major depression Morbid obesity Hypovitaminosis D Depression with anxiety GERD (gastroesophageal reflux disease) Pure hypercholesterolemia Diabetes mellitus Surgical History History of carpal tunnel surgery H/O eye surgery Family History Father Diabetes Hypertension CVD (cardiovascular disease) Mother Anxiety Diabetes Maternal Grandmother Cancer Paternal Uncle Diabetes Stroke Paternal Aunt Diabetes Maternal Grandmother Liver cancer Family/Other FH: mental illness Mental health disorder Social History Housing: Apartment Alcohol intake: current Alcohol intake frequency: holidays/special occasions only Alcohol type: beer Patient Tobacco Use Status: Former Tobacco user Tobacco use type: Cigarette e-Cigarette/Vaping Use: Never Used Second Hand Smoke Exposure: No service: No Current occupational status: employed 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 Absence of acromegalic features. Neck exam reveals nl size thyroid about 15 gms. No thyroid nodules palpable. Heart S1 S2, Reg R/R. No M/R G. Skin exam reveals absence of vitiligo or acanthosis nigricans. Visual exam of foot performed. No ulcerations or open lesions. No inter digit maceration or fissuring. No onychomycosis, positive callouses on both great toes. Sensation intact to monofilament exam. Vibratory sensation is normal with 128 Hz tuning fork. Results AMB Hemoglobin A1c AMB Hemoglobin A1c 7.2 % Last Edit by SARANYA Meyers on 08/26/24 11:00 Results Reviewed Results Reviewed: Laboratory Last Values Glucose (Clinic) 106 mg/dL (60-115) 08/26/24 10:50 Hgb A1c (Clinic) 7.2 % (4.0-6.0) H 08/26/24 10:53 Assessment & Plan Assessment & Plan (1) Type 2 diabetes mellitus associated with morbid obesity: Code(s): E11.69 - Type 2 diabetes mellitus with other specified complication; E66.01 - Morbid (severe) obesity due to excess calories Category: Medical Plan: 35-year-old male type 2 diabetic with retinopathy and neuropathy with a A1c of 7.2%. He will increase Lantus to 34 units and continue all other medications. He has been counseled to reduce the sodium in his diet. He will schedule an appointment with the power plant manager. Podiatry consult placed The patient had an opportunity to ask questions regarding treatment plan. The patient expressed understanding and agreement with the above treatment plan. The patient is aware they should contact our office by phone for worsening glucose readings or for any low blood sugars which may warrant a change in diabetes medication. Compliance is encouraged with medications and any followup testing/consults which may have been ordered. Plan Orders: Orders AMB Hemoglobin A1c Today E11.65 - Type 2 diabetes mellitus with hyperglycemia, Z13.9 - Encounter for screening, unspecified, Z79.4 - intermediate (current) use of insulin Lipid Panel Today E11.69 - Type 2 diabetes mellitus with other specified complication, E66.01 - Morbid (severe) obesity due to excess calories Microalbumin, Random (w Creat) Today E11.69 - Type 2 diabetes mellitus with other specified complication, E66.01 - Morbid (severe) obesity due to excess calories Creatinine Urine Today E11.69 - Type 2 diabetes mellitus with other specified complication, E66.01 - Morbid (severe) obesity due to excess calories Complete Blood Count Auto Diff Today E11.69 - Type 2 diabetes mellitus with other specified complication, E66.01 - Morbid (severe) obesity due to excess calories Basic Metabolic Panel Fasting Today E11.69 - Type 2 diabetes mellitus with other specified complication, E66.01 - Morbid (severe) obesity due to excess calories Referrals Podiatry Referral E11.69 - Type 2 diabetes mellitus with other specified complication, E66.01 - Morbid (severe) obesity due to excess calories Medications: Changed From insulin glargine (Lantus U-100 Insulin) 30 units (0.3 mL) subcut DAILY 90 days 27 mL 1RF E11.65 - Type 2 diabetes mellitus with hyperglycemia, Z79.4 - technician terminal and repeater (current) use of insulin To insulin glargine (Lantus U-100 Insulin) 34 units (0.34 mL) subcut DAILY 90 days 33 mL 3RF E11.65 - Type 2 diabetes mellitus with hyperglycemia, Z79.4 - intermediate (current) use of insulin Refilled insulin glargine (Lantus U-100 Insulin) 34 units (0.34 mL) subcut DAILY 90 days 33 mL 3RF E11.65 - Type 2 diabetes mellitus with hyperglycemia, Z79.4 - technician terminal and repeater (current) use of insulin Patient Instructions: The patient was counseled to achieve a target A1C of 7% (154 avg). Fasting blood sugars should be 90-130 in the morning and less than 180 two hours after meals. Reviewed the relationship between poor diabetic control and the development of complications. Coding Level of Care Code Est Pt Level 4 (14880) Complex EM visit Add On G2211 Diagnoses Type 2 diabetes mellitus associated with morbid obesity E11.69; E66.01 Time Spent (min) 30 Comment Time spent reviewing labs/provider notes, face to face, chart doc
[2024-08-26 10:44] VITALS: BP 126/84; PULSE 81; O2SAT 97; BMI 42.1
[2024-08-26 10:55] LABS: Glucose, Whole Blood 106 mg/dL (60-115)
== END 2024-08-26 11:26 | disposition home or self-care (01) ==
LOC: HO.ENCR 10:38
PROVIDERS: PCP Internal Medicine; Visit Provider Nurse Practitioner Adult Health
DX: Z13.9 Encounter for screening, unspecified (principal); E11.65 Type 2 diabetes mellitus with hyperglycemia; Z79.4 Long term (current) use of insulin; E11.69 Type 2 diabetes mellitus with other specified complication; E66.01 Morbid (severe) obesity due to excess calories
CPT/HCPCS: 99214; G2211

== ENCOUNTER → 2024-08-26 10:37 | Outpatient (BNVA) | payer OTHER, SELFPAY | PROVIDERS: PCP Internal Medicine; Visit Provider Nurse Practitioner Adult Health | DX: E11.69 Type 2 diabetes mellitus with other specified complication (principal); E66.01 Morbid (severe) obesity due to excess calories; Z79.4 Long term (current) use of insulin | CPT/HCPCS: 82947; 83036; 99212 ==

== ENCOUNTER 2024-08-30 08:36 | Outpatient (REF) | payer OTHER, SELFPAY ==
--- OUTSIDE RECORDS SUMMARY | 2024-08-30 08:39 | XMS_ITS | Clinical Summary ---
Author Organization [employer] Address [address] [place] [address] Care Team Providers Care Claims Agent Right Of Way Name Role Phone Unavailable Primary Care Provider Unavailabl e Social History Tobacco Use Types Packs/Day Years Used Date Smoking Tobacco: Never Assessed Sex and Gender Information Value Date Recorded Sex Assigned at Male 02/27/2022 10:27 AM EDT Legal Sex Male 10:27 AM EDT Gender Identity Male 02/06/2024 9:37 AM EDT Sexual Orientation Straight 02/06/2024 9: 36 AM EDT Plan of Treatment Health Maintenance Due Date Last Done Comments CT Colonography 1976 Colonoscopy 1976 Colorectal Cancer Screening 1976 Depression Screening 1976 FIT DNA/Cologuard 1976 FIT 1976 FOBT 1976 HIV Screening 1976 Lipid Panel 1976 SDOH Screening 1976 Sigmoidoscopy 1976 Alcohol/Substance Use Screening 1988 Tobacco Screening 1988 Family Planning (PISQ) 12/26/1991 Hepatitis C Screening 1994 Hepatitis B Vaccines (1 of 3 - 19+ 3-dose series) 12/26/1995 DTaP/Tdap/Td Vaccines (1 - Tdap) 12/16/2014 12/15/2014 Zoster Vaccines (1 of 2) 2026 RSV Patients and Patients Aged 60 years or older (1 - 1-dose 75+ series) 12/26/2051 COVID-19 Vaccine Completed 01/26/2024, , 04/14/2021, Additional history exists Influenza Vaccine Completed 01/26/2024, , 02/13/2022, Additional history exists HIB Vaccines Aged Out No longer eligi ble based on patient's age to complete this topic HPV Vaccines Aged Out No longer eligi ble based on patient's age to complete this topic Hepatitis A Vaccines Aged Out No long er eligible based on patient's age to complete this topic IPV Vaccines Aged Out No longer eligi ble based on patient's age to complete this topic Meningococcal Vaccine Aged Out No yvonne norberto eligible based on patient's age to complete this topic Pneumococcal Vaccine: Pediatrics (0 to 5 Years) and At-Risk Patients (6 to 49) Years) Aged Out No longer eligible based on patient's age to complete this topic RSV under 20 months Aged Out No longe r eligible based on patient's age to complete this topic Rotavirus Vaccines Aged Out No longer eligible based on patient's age to complete this topic Insurance [facility] * Guarantor: Alfonso Ruiz Account Type Relation to Patient Date of Phone Billing Address Personal/Family Self [address] [place] [address]
[2024-08-30 09:12] LABS: MANUAL DIFF FLAG NO
[2024-08-30 09:56] LABS: Basophils Percent Auto 0.7 % (0-2); Eosinophils Absolute Auto 0.1 X10*3/uL (0.0-0.4); Eosinophils Percent Auto 2.1 % (0-4); Hematocrit 40.8 % (42.0-52.0); Hemoglobin 13.2 g/dl (14.0-18.0); Imm Gran Abs Auto 0.01 X10*3/uL (0.00-0.03); Imm Gran Pct Auto 0.2 % (0.0-0.4); Lymphocytes Absolute Auto 1.9 X10*3/uL (1.2-4.9); Lymphocytes Percent Auto 44.1 % (20-40); Mean Corpuscular HGB Conc 32.4 g/dl (31.0-36.0); Mean Corpuscular Hemoglobin 28.2 pg (27.0-33.0); Mean Corpuscular Volume 87.2 fL (80.0-98.0); Monocytes Absolute Auto 0.5 X10*3/uL (0.1-1.2); Monocytes Percent Auto 10.6 % (2-11); Neutrophils Absolute Auto 1.8 x10*3/uL (2.0-8.3); Neutrophils Percent Auto 42.3 % (45-73); Platelet Count 244 X10*3/uL (160-400); Red Blood Count 4.68 X10*6/uL (4.60-5.80); Red Cell Distribution Width 13.9 % (11.0-16.0); White Blood Count 4.4 X10*3/uL (4.8-10.8)
[2024-08-30 10:52] LABS: Alanine Aminotransferase 24 U/L (0-40); Albumin Level 3.9 g/dL (3.5-5.0); Alkaline Phosphatase 77 U/L (39-117); Anion Gap 12 (12-20); Aspartate Amino Transferase 25 U/L (5-37); Bilirubin Total 0.3 mg/dL (0.0-1.0); Blood Urea Nitrogen 14 mg/dL (9-16); Calcium 8.9 mg/dL (8.4-10.2); Carbon Dioxide 24 mmol/L (22-29); Chloride 110 mmol/L (96-108); Cholesterol 171 mg/dL (<200); Estimated Glomerular Filt Rate > 60; Glucose Fasting 123 mg/dL (60-99); HDL Cholesterol 37 mg/dL (>40); LDL Cholesterol Calculated 113 mg/dL (<100); Sodium 142 mmol/L (135-145); Total Protein 6.9 g/dL (6.5-8.0); Triglycerides 106 mg/dL (<150)
[2024-08-30 11:07] LABS: Creatinine Urine 268.16 mg/dL; Microalbum/Creatinine Ratio Ur 10.4 ug/mg cr (<30)
== END 2024-08-30 08:37 | disposition home or self-care (01) ==
LOC: HO.LAB 08:36
PROVIDERS: PCP Internal Medicine; Visit Provider Nurse Practitioner Adult Health
DX: E11.65 Type 2 diabetes mellitus with hyperglycemia (principal); Z79.4 Long term (current) use of insulin; E78.5 Hyperlipidemia, unspecified; E66.01 Morbid (severe) obesity due to excess calories
CPT/HCPCS: 36415; 80053; 80061; 82043; 82570; 85025

== ENCOUNTER 2024-09-09 08:29 | Outpatient (REF) | payer OTHER, SELFPAY ==
--- NOTE | ~2024-09-09 | XR_ITS ---
EXAMINATION: XR HIP 2 OR MORE VIEWS RIGHT HISTORY: M25.551 - Pain in right hip COMPARISON: There are no prior studies for comparison. FINDINGS: Two views of the right hip are submitted. Osseous mineralization is normal. There is no fracture or dislocation. The joint space is maintained. The soft tissues are unremarkable. XR/XR hip RT min 2V IMPRESSION: Unremarkable examination of the right hip. Electronically signed by: Nestor Shah MD 09/09/2024 10:09 AM EDT
--- OUTSIDE RECORDS SUMMARY | 2024-09-09 10:04 | XMS_ITS | Clinical Summary ---
Author Organization [employer] Address [address] [facility] [address] [place] [address] Care Team Providers Care Director Of Strategic Partnerships Name Role Phone Unavailable Primary Care Provider [...] patient's age to complete this topic Insurance [facility] STANDARD * Guarantor: Alfonso Ruiz Account Type Relation to Patient Date of Phone Billing Address Personal/Family Self [address] [place] [address]
== END 2024-09-09 08:30 | disposition home or self-care (01) ==
LOC: HO.XRAY 08:29
PROVIDERS: PCP Internal Medicine; Visit Provider Internal Medicine
DX: Z00.00 Encounter for general adult medical examination without abnormal findings (principal); M25.551 Pain in right hip; F33.0 Major depressive disorder, recurrent, mild; E66.01 Morbid (severe) obesity due to excess calories; E11.65 Type 2 diabetes mellitus with hyperglycemia; Z79.4 Long term (current) use of insulin
CPT/HCPCS: 73502; 90471; 90715; 96127; 99212; 99396

== ENCOUNTER 2024-09-09 08:29 | Outpatient (AMB) | payer OTHER, SELFPAY ==
--- NOTE | 2024-09-09 08:33 | A.OFFPC_ITS ---
Vital Signs 09/09/24 08:34 Height 5 ft 10 in Weight 298 lb BMI 42.8 BP 130/86 Blood Pressure Location Lt brachial Position Sitting Intake Visit Reasons: annual exam Intake Note: Patient here for an annual physical exam Scenario Writer Required: No Accompanied by: Self / Same As Patient Allergies shellfish derived [SHELLFISH DERIVED] Allergy (Severe, Verified 09/09/24 08:52) ANAPHYLAXIS metformin Adverse Reaction (Intermediate, Verified 09/09/24 08:52) diarrhea Medication List - Last Reconciled 09/09/24 by Kymberly Fernandez MD atorvastatin 40 mg PO DAILY 90 days CPAP (CPAP Machine/Device) autoPAP mode 6-20 cmH2O docusate sodium (Colace) 100 mg PO BID escitalopram oxalate 30 mg PO DAILY hydroxyzine pamoate 25 mg PO BEDTIME insulin glargine (Lantus U-100 Insulin) 34 units (0.34 mL) subcut DAILY 90 days insulin syringe-needle U-100 (BD Insulin Syringe Ultra-Fine) 0.5 mL miscellaneous DAILY 90 days lorazepam 1 mg PO BEDTIME PRN pioglitazone 45 mg PO DAILY semaglutide (Ozempic) 2 mg (0.75 mL) subcut QWEEK 4 weeks Ventolin HFA 90 mcg/actuation (albuterol sulfate) 2 puffs inhalation Q6H PRN NS Tobacco use date assessed: 09/09/24 Dental Screening Dental Screen Date: 09/09/24 Did you have a dental visit in the last 12 months?: No Did you have a dental problem in the last 6 months where you did not have access to dental care?: No Was dental information given to patient?: Patient has dentist HPI HPI Comments History of Present Illness Details The patient is a 48-year-old male presenting for an annual health examination, with ongoing management of Type 2 Diabetes Mellitus, noting variability in blood glucose levels influenced by anxiety and appetite changes. The patient is managed with Ozempic injections, and a past intolerance to Metformin is documented. In addressing hyperlipidemia, the patient has not consistently taken atorvastatin, resulting in elevated cholesterol parameters, particularly the LDL level. The patient?s difficulties with adherence were discussed, leading to a re -initiation of atorvastatin therapy. The patient reports conventional management for obstructive sleep apnea through a CPAP machine. Improvement in depression has been observed with Citalopram therapy, further noting the absence of significant side effects. A structured approach to addressing obesity through adjustments in diet and exercise routine was discussed, complemented by encouragement towards obesity- related risk reduction strategies. The discussion of right-sided hip discomfort lacked any acute traumatic trigger, and a consideration for imaging studies was noted. Maintenance aspects encompassed the requirement for a tetanus booster and the procedural guidance for colorectal cancer screening using Cologuard. Additional discussions affirmed the shellfish and metformin allergies previously established. Tetanus vaccination and colorectal cancer screening align with routine preventive care milestones highlighted in the discussion. - Tetanus booster is due since the last was in 2014. - Colorectal cancer screening recommende d using Cologuard at home. - Cholesterol management with atorvastat in 40 mg for hyperlipidemia control. - Weight management through dietary glynn fications and increased exercise was emphasized due to obesity. - Proposed routine monitoring of diabete s through continued blood glucose checks. [facility] Medical History (Updated 09/09/24 @ 09:02 by Kymberly Fernandez MD) Type 2 diabetes mellitus associated with morbid obesity Carpal tunnel syndrome, right Panic attack Anxiety Diabetes Mild recurrent major depression Morbid obesity Hypovitaminosis D Depression with anxiety GERD (gastroesophageal reflux disease) Pure hypercholesterolemia Diabetes mellitus Surgical History History of carpal tunnel surgery H/O eye surgery Family History Father Diabetes Hypertension CVD (cardiovascular disease) Mother Anxiety Diabetes Maternal Grandmother Cancer Paternal Uncle Diabetes Stroke Paternal Aunt Diabetes Maternal Grandmother Liver cancer Family/Other FH: mental illness Mental health disorder Social History Housing: Apartment Alcohol intake: current Alcohol intake frequency: holidays/special occasions only Alcohol type: beer Patient Tobacco Use Status: Former Tobacco user Tobacco use type: Cigarette e-Cigarette/Vaping Use: Never Used Second Hand Smoke Exposure: No service: No Current occupational status: employed 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 1. Little interest or pleasure in doing things: not at all 2. Feeling down, depressed, or hopeless: not at all 3. Trouble falling or staying asleep, or sleeping too much: not at all 4. Feeling tired or having little energy: several days 5. Poor appetite or overeating: not at all 6. Feeling bad about yourself - or that you are a failure or have let yourself or your family down: not at all 7. Trouble concentrating on things, such as reading the newspaper or watching television: not at all 8. Moving or speaking so slowly that other people could have noticed. Or the opposite - being so fidgety or restless that you have been moving around a lot more than usual: not at all 9. Thoughts that you would be better off or of hurting yourself in some way: not at all Total score: 1 Depression Screening Interpretation: Positive Depression Screening Follow-up: Existing condition, In treatment, Community Mental Health Worker F/U and Follow- up Visit Requested Depression Screening Done: Yes 61493 - PHQ-9 Billing: Yes Source: Developed by Drs. Nestor Amezcua, Cheryl Rosa, Martinez Cee and colleagues, with an educational mary from [employer]. Thrive Questionnaire Date Thrive assessed: 09/09/24 I am a: Patient What is your living situation today?: I have a steady place to live Within the past 12 months, did the food you bought not last and you didn't have the money to get more?: Never true Within the past 12 months, did you worry whether your food would run out before you got money to buy more?: Never true Do you have trouble paying for medicines?: No Do you have trouble getting transportation to medical appointments?: No Do you have trouble paying your heating and electricity bill?: No Do you have trouble taking care of your child, family member or friend?: No Do you have trouble with day-to-day activities such as bathing, preparing meals, shopping, managing finances, etc.?: No Are you currently unemployed and looking for a job?: No Are you interested in more education?: No Please select the resources that you would like help with: None Currently or been in a relationship where the following occur: I choose not to answer THRIVE Score: 0 AUDIT C Alcohol Use Questionnaire (AUDIT-C) 1. How often do you have a drink containing alcohol?: Monthly or less 2. How many drinks containing alcohol do you have on a typical day when you are drinking?: 3 or 4 3. How often do you have six or more drinks on one occasion?: Never Total Score: 2 Score Reviewed/Action Taken: No UMAIR-7 AMB Questionnaire UMAIR-7 Date UMAIR - 7 assessed: 09/09/24 Feeling nervous, anxious, or on edge: 1 = Several days Not being able to stop or control worryin = Several days Worrying too much about different things: 1 = Several days Trouble relaxin = Several days Being so restless that it is hard to sit still: 1 = Several days Becoming easily annoyed or irritable: 1 = Several days Feeling afraid as if something awful might happen: 1 = Several days Total UMAIR-7 score (0-4 normal; 5-9 mild; 10-14 moderate; 15-21 severe): 7 Source: Developed by Drs. Nestor Amezcua, Cheryl Rosa, Martinez Cee and colleagues, with an educational mary from [employer]. UMAIR-7 Assessment Billing UMAIR-7 Assessment Tool: UMAIR-7 Assessment 37136 Review of Systems Const All systems reviewed & are unremarkable except as noted in HPI and below Card Denies chest pain at rest, Denies chest pain with activity, Denies edema, Denies irregular heart rhythm, Denies claudication, Denies dyspnea, Denies dyspnea on exertion, Denies orthopnea, Denies paroxysmal nocturnal dyspnea and Denies slow heart rate Resp Denies cough, Denies dyspnea and Denies dyspnea on exertion GI Denies abdominal pain, Denies change in bowel habits, Denies excessive flatus, Denies nausea and Denies vomiting Physical exam (Primary Care) Vital Signs: Last Vital Signs BP 130/86 09/09/24 08:34 BMI result Body Mass Index 42.8 BMI Assessment/Plan discussion: High BMI High, discussed plan: lifestyle, weight reduction, dietary and physical activity Tobacco/Smoking Status: Tobacco use Status Tobacco use date assessed 09/09/24 09/09/24 08:39 Patient Tobacco Use Status Former Tobacco user 09/09/24 08:39 Tobacco use type Cigarette 09/09/24 08:39 e-Cigarette/Vaping Use Never Used 09/09/24 08:39 PHQ-9: PHQ-9 Score PHQ-9: Total score 1 09/09/24 08:56 Depression Screening Interpretation: Positive Depression Screening Follow-up: Existing condition, In treatment, Community Mental Health Worker F/U and Follow- up Visit Requested Thrive Assessment: Date of Thrive Assessment Date Thrive assessed 09/09/24 09/09/24 08:39 Currently or been in a relationship where the following occur: I choose not to answer HENMT Head: Yes normal to inspection, Yes normocephalic and Yes atraumatic Ears: external ears normal Eyes General: appearance normal, both eyes and all related structures Eyelids: Yes eyelids normal Conjunctivae: conjunctivae normal Neck Neck: Yes normal visual inspection and Yes supple Resp Effort & Inspection: normal respiratory effort Auscultation: clear to auscultation bilaterally Cardio Jugular venous distension: no JVD Rate: regular rate Rhythm: regular rhythm Heart sounds: S1 normal heart sound present and S2 normal heart sound present GI Inspection: Yes normal to inspection Palpation (GI): Soft to palpation and nontender Auscultation: normal bowel sounds Skin General skin exam: no rashes or lesions noted Neuro General: no focal motor deficits Extrem General: Yes full ROM Psych Appearance: grossly normal Immunizations Boostrix Tdap 2.5 Lf unit-8 mcg-5 Lf/0.5 mL intramuscular syringe Performing Provider: Kymberly Fernandez MD Performing Location: [facility] – [place] [facility] Administered by: SARANYA Berry on 09/09/24 09:02 Dose Route Admin Location Dispensed Lot Number Expiration Date [facility] Animal Care Technician 0.5 mL IM Right Deltoid 0.5 mL [id number] 12/23/26 83335-685-07 [facility] VIS Given Date VIS Provided VIS Publication Date 09/09/24 Single Vaccine 24 Eligibility Eligibility Date Funding Source Not [facility] Eligible 09/09/24 Private Coding Level of Care Code Est Pt Level 3 (50190) Est Pt Prev Care 40-64y(03175) Diagnoses Physical exam Z00.00 Right hip pain M25.551 Mild recurrent major depression F33.0 Morbid obesity E66.01 Type 2 diabetes mellitus with hyperglycemia, with long-term current use of insulin E11.65; Z79.4 Diabetes mellitus type: type 2 Diabetes mellitus rat exterminator insulin use: with nursing home use Diabetes mellitus complication status: with hyperglycemia Additional Codes PHQ-9 - 26463 - PHQ-9 Billing: Yes ([id number]) UMAIR-7 Assessment Billing - UMAIR-7 Assessment Tool: UMAIR-7 Assessment 17051 ([id number]) Time Spent (min) 33 Assessment & Plan Assessment & Plan (1) Physical exam: Code(s): Z00.00 - Encounter for general adult medical examination without abnormal findings Category: Medical (2) Right hip pain: Code(s): M25.551 - Pain in right hip Category: Medical (3) Mild recurrent major depression: Code(s): F33.0 - Major depressive disorder, recurrent, mild Category: Medical (4) Morbid obesity: Code(s): E66.01 - Morbid (severe) obesity due to excess calories Category: Medical (5) Diabetes mellitus: Code(s): E11.9 - Type 2 diabetes mellitus without complications Category: Medical Qualifiers: Diabetes mellitus type: type 2 Diabetes mellitus nursing home insulin use: with nursing home use Diabetes mellitus complication status: with hyperglycemia Qualified Code(s): E11.65 - Type 2 diabetes mellitus with hyperglycemia; Z79.4 - shelter (current) use of insulin Plan For Type 2 Diabetes Mellitus, I will maintain the patient on Ozempic 2 mg weekly, focusing on tightening glycemic control amidst self-reported fluctuations. The inadvertent cholesterol elevation prompts a reinstatement of atorvastatin at 40 mg. Obesity, being a substantive health factor, requires a concerted effort towards lifestyle improvements, tailored dietary interventions, and augmented physical activities. Imaging for hip pain is pursued owing to reported symptoms despite no direct trauma. Preventive care includes updating the tetanus immunization and employing Cologuard for colorectal cancer screening. Patient was informed and verbally consented to the use of an ambient scribe for clinic note documentation during this visit. I discussed with the patient the importance of ongoing diabetes management with Ozempic, alongside the necessity for overseeing blood glucose level changes affected by dietary and lifestyle factors. Addressed the risks and benefits associated with atorvastatin re-initiation for heightened cholesterol management. Emphasized the role of proactive obesity management through self- directed lifestyle amendments. My preventive care recommendation included the tetanus booster based on the current vaccination chronology and promoted compliance with colorectal cancer screening using Cologuard. I reviewed the symptoms associated with hip discomfort and articulated plans for radiological evaluation to preemptively assess any underlying conditions. Orders: Orders TDaP Immunization Today Z23 - Encounter for immunization Microalbumin, Random (w Creat) 4 Months R80.9 - Proteinuria, unspecified Comprehensive [place]. Panel Fast 4 Months Z00.00 - Encounter for general adult medical examination without abnormal findings XR hip RT min 2V Today M25.551 - Pain in right hip Lipid Panel 4 Months E78.5 - Hyperlipidemia, unspecified Complete Blood Count Auto Diff 4 Months D64.9 - Anemia, unspecified IRON PROFILE 4 Months D64.9 - Anemia, unspecified Vitamin D 25-OH Total 4 Months E55.9 - Vitamin D deficiency, unspecified Vitamin B12 and Folate 4 Months E53.8 - Deficiency of other specified B group vitamins Referrals Cologuard Test Z12.11 - Encounter for screening for malignant neoplasm of colon, Z12.12 - Encounter for screening for malignant neoplasm of rectum Medications: Refilled atorvastatin 40 mg PO DAILY 90 days 90 tabs 3RF Patient Instructions: - Take atorvastatin 40 mg as prescribed regularly. - Use Ozempic 2 mg injection weekly for diabetes control. - Follow instructions for completing Cologuard screening at home. - Obtain a tetanus booster as soon as possible. - Monitor blood glucose at home regularly and report any significant changes. - Engage in regular physical activity and adhere to a balanced diet to assist weight loss. - Return to the office in 4 months for follow-up labs and reevaluation. - Arrange for an imaging study for the right hip if discomfort persists without relief.
[2024-09-09 08:34] VITALS: BP 130/86; BMI 42.8
--- OUTSIDE RECORDS SUMMARY | 2024-09-09 08:45 | XMS_ITS | Clinical Summary ---
Author Organization [employer] Address [address] [place] [address] Care Team Providers Care Coal Unloader Name Role Phone Unavailable Primary Care Provider [...] patient's age to complete this topic Insurance [facility] STANDARD * Guarantor: Alfonso Ruiz Account Type Relation to Patient Date of Phone Billing Address Personal/Family Self [address] [place] [address]
== END 2024-09-09 09:08 | disposition home or self-care (01) ==
LOC: HO.HMCH 08:30
PROVIDERS: PCP Internal Medicine; Visit Provider Internal Medicine
DX: Z00.00 Encounter for general adult medical examination without abnormal findings (principal); E11.65 Type 2 diabetes mellitus with hyperglycemia; E66.01 Morbid (severe) obesity due to excess calories; Z79.4 Long term (current) use of insulin; Z68.41 Body mass index [BMI] 40.0-44.9, adult; M25.551 Pain in right hip; F33.0 Major depressive disorder, recurrent, mild; Z23 Encounter for immunization

== ENCOUNTER → 2024-09-09 09:30 | Outpatient (BNV) | payer OTHER, SELFPAY | PROVIDERS: PCP Internal Medicine; Visit Provider Radiology Diagnostic Radiology | DX: M25.551 Pain in right hip (principal) | CPT/HCPCS: 73502 ==

== ENCOUNTER 2024-11-26 08:32 | Outpatient (AMB) | payer OTHER, SELFPAY ==
--- OUTSIDE RECORDS SUMMARY | 2024-11-26 08:47 | XMS_ITS | Clinical Summary ---
Author Organization [employer] Address [address] [place] [address] Care Team Providers Care Lead Pressman Name Role Phone Unavailable Primary Care Provider [...] Panel 1975 SDOH Screening 1975 Sigmoidoscopy 1975 Disability Screening 1975 Alcohol/Substance Use Screening 1988 Tobacco Screening 1988 Family Planning (PISQ) 12/26/1991 Hepatitis C Screening 1994 Hepatitis B Vaccines (1 of 3 - 19+ 3-dose series) 12/26/1995 DTaP/Tdap/Td Vaccines (1 - Tdap) 12/16/2014 12/15/2014 Influenza Vaccine (#1) 2024 , 02/03/2023, 02/13/2022, Additional history exists Zoster Vaccines (1 of 2) 2026 RSV Patients and Patients Aged 60 years or older (1 - 1-dose 75+ series) 12/26/2051 COVID-19 Vaccine Completed 01/26/2024, , 04/14/2021, Additional history exists HIB Vaccines Aged Out [...] patient's age to complete this topic Meningococcal B Vaccine Aged Out No l onger eligible based on patient's age to complete this topic Meningococcal Vaccine Aged Out No yvonne norberto eligible based on patient's age to complete this topic Pneumococcal Vaccine: Pediatrics (0 to 5 Years) and At-Risk Patients (6 to 49) Years Aged Out No longer eligible based on patient's age to complete this topic RSV under 20 months Aged Out No longe r eligible based on patient's age to complete this topic Rotavirus Vaccines Aged Out No longer eligible based on patient's age to complete this topic Insurance [facility] STANDARD
--- NOTE | 2024-11-26 08:49 | A.OFFVIS_ITS ---
Vital Signs 11/26/24 08:50 Height 5 ft 10 in Weight 295 lb 6.711 oz BMI 42.4 BP 120/78 Blood Pressure Location Rt brachial Position Sitting Pulse 90 Pulse Source Pulse Oximeter Pulse Oximetry (%) 97 Oxygen Delivery Method Room Air Intake Visit Reasons: T2DM Intake Note: Patient presents today for a follow-up on Type 2 Diabetes Mellitus: Patient needs a new meter Last Diabetic eye exam was on: 04/21/24 Pt getting eye injections. Last Podiatry exam was on: Patient does not see a Business Education Instructor Most recent HbA1c: 6.7%, 11/26/2024 Random Glucose- 130 mg/dL, Today Covered Buckle Assembler Required: No Accompanied by: Self / Same As Patient Allergies shellfish derived (SHELLFISH DERIVED) Allergy (Severe, Verified 11/26/24 08:51) ANAPHYLAXIS metformin Adverse Reaction (Intermediate, Verified 11/26/24 08:51) diarrhea HPI Comments Details: 48 year male who is seen in f/u for T2DM. Initially diagnosed with T2DM approx 2019. He has previously been [facility] at [facility] end[facility]ology. Current regimen: Lantus 34 units (increased from 30 units) Pioglitazone 45 mg daily Semaglutide 2.0 mg weekly Metformin caused diarrhea Jardiance caused UTI Glipizide caused hypoglycemia Dexcom 7 sensor malfunction and he is awaiting for new sensor He has freestyle lite meter, his lancing device is broken No interval hypoglycemia. Any prior episodes treated with juice Checks sugar after to ensure it is rising. Has eyes checked several times per year, has proliferative diabetic retinopathy hypertensive changes in the eyes: is being followed regularly + neuropathy: has numbness tingling and pain, does not see podiatry. No nephropathy, not on KARMA/ARB Labs 11/22/22 microalbumin 20 eGFR >60 Has HLD, on statin. Last LDL 56 as measured on 10/2022. He has orders for fasting blood work in EHR. Denies CAD. Denies symptoms of chest pain, dyspnea or claudication. Uses CPAP regularly. Diet:trys to balance, reports stress eating Weight: ROS CONSTITUTIONAL: Denies weight loss, fever and chills. HEENT: Denies changes in vision and hearing. RESPIRATORY: Denies SOB and cough. CV: Denies palpitations and CP GI: Denies abdominal pain, nausea, vomiting and diarrhea. : Denies dysuria and urinary frequency. MSK: Denies new myalgia and joint pain. SKIN: Denies rash and pruritus. NEUROLOGICAL: Denies headache PSYCHIATRIC: Denies recent changes in mood. PHYSICAL EXAM: GENERAL: Alert and oriented x 3. NAD EYES: EOMI. Anicteric. HENT: Moist mucous membranes. No scleral icterus. No cervical lymphadenopathy. LUNGS: Clear to auscultation bilaterally. CARDIOVASCULAR: Regular rate and rhythm. No murmur. No JVD. ABDOMEN: Soft, non-tender +bs EXTREMITIES: No edema. Non-tender. SKIN: No rashes or lesions. Warm. NEUROLOGIC: No focal neurological deficits. CN II-XII grossly intact PSYCHIATRIC: Cooperative. Appropriate mood and affect [facility] Medical History Type 2 diabetes mellitus associated with morbid obesity Carpal tunnel syndrome, right Panic attack Anxiety Diabetes Mild recurrent major depression Morbid obesity Hypovitaminosis D Depression with anxiety GERD (gastroesophageal reflux disease) Pure hypercholesterolemia Diabetes mellitus Surgical History History of carpal tunnel surgery H/O eye surgery Family History Father Diabetes Hypertension CVD (cardiovascular disease) Mother Anxiety Diabetes Maternal Grandmother Cancer Paternal Uncle Diabetes Stroke Paternal Aunt Diabetes Maternal Grandmother Liver cancer Family/Other FH: mental illness Mental health disorder Social History Housing: Apartment Alcohol intake: current Alcohol intake frequency: holidays/special occasions only Alcohol type: beer Patient Tobacco Use Status: Former Tobacco user Tobacco use type: Cigarette e-Cigarette/Vaping Use: Never Used Second Hand Smoke Exposure: No service: No Current occupational status: employed 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 Current occupational exposures/hazards: No Cognitive needs: No Hearing needs: No Vision needs: Yes Physical Exam Vital Signs: Last Vital Signs Pulse 90 11/26/24 08:50 BP 120/78 11/26/24 08:50 Pulse Ox 97 11/26/24 08:50 Oxygen Delivery Method Room Air 11/26/24 08:50 BMI result Body Mass Index 42.4 Results AMB Hemoglobin A1c AMB Hemoglobin A1c 6.7 % Last Edit by SARANYA Reece on 11/26/24 09:06 Results Reviewed Results Reviewed: Laboratory Last Values Glucose (Clinic) 130 mg/dL (60-115) H 11/26/24 08:56 Hgb A1c (Clinic) 6.7 % (4.0-6.0) H 11/26/24 09:03 Assessment & Plan Assessment & Plan (1) Type 2 diabetes mellitus associated with morbid obesity: Code(s): E11.69 - Type 2 diabetes mellitus with other specified complication; E66.01 - Morbid (severe) obesity due to excess calories Category: Medical Plan Type 2 diabetes, controlled on current medications No dose changes. continue current medications Treat lows by rules of 15s Continue eye exams. reschedule missed podiatry appt. Orders: Orders AMB Hemoglobin A1c Today E11.69 - Type 2 diabetes mellitus with other specified complication, E66.01 - Morbid (severe) obesity due to excess calories Medications: New FreeStyle Lite Meter (blood-glucose meter) once daily 1 ea 0RF NS E11.69 - Type 2 diabetes mellitus with other specified complication, E66.01 - Morbid (severe) obesity due to excess calories Coding Level of Care Code Est Pt Level 4 (56470) Diagnoses Type 2 diabetes mellitus associated with morbid obesity E11.69; E66.01
[2024-11-26 08:50] VITALS: BP 120/78; PULSE 90; O2SAT 97; BMI 42.4
[2024-11-26 09:01] LABS: Glucose, Whole Blood 130 mg/dL (60-115)
== END 2024-11-26 09:25 | disposition home or self-care (01) ==
LOC: HO.ENCR 08:33
PROVIDERS: PCP Internal Medicine; Visit Provider Internal Medicine
DX: E11.69 Type 2 diabetes mellitus with other specified complication (principal); E66.01 Morbid (severe) obesity due to excess calories

== ENCOUNTER → 2024-11-26 08:32 | Outpatient (BNVA) | payer OTHER, SELFPAY | PROVIDERS: PCP Internal Medicine; Visit Provider Internal Medicine | DX: E11.69 Type 2 diabetes mellitus with other specified complication (principal); E66.01 Morbid (severe) obesity due to excess calories; G47.33 Obstructive sleep apnea (adult) (pediatric); Z99.89 Dependence on other enabling machines and devices | CPT/HCPCS: 82947; 83036; 99212 ==

== ENCOUNTER 2025-01-09 10:23 | Outpatient (AMB) | payer OTHER, SELFPAY ==
[2025-01-09 10:35] VITALS: BP 122/82; PULSE 85; O2SAT 98; BMI 43.5
--- NOTE | 2025-01-09 10:35 | MHC.OFFVIS ---
Vital Signs 01/09/25 10:35 Height 5 ft 10 in Weight 303 lb BMI 43.5 BP 122/82 Blood Pressure Location Lt brachial Position Sitting Pulse 85 Pulse Source Pulse Oximeter Pulse Oximetry (%) 98 Oxygen Delivery Method Room Air Intake Visit Reasons: f/u appt Intake Note: Patient presents for follow up. 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 Required: No Accompanied by: Self / Same As Patient Allergies shellfish derived (SHELLFISH DERIVED) Allergy (Severe, Verified 01/09/25 10:43) ANAPHYLAXIS metformin Adverse Reaction (Intermediate, Verified 01/09/25 10:43) diarrhea Medication List - Last Reconciled 01/09/25 by ERIC Turpin atorvastatin 40 mg PO DAILY 90 days CPAP (CPAP Machine/Device) autoPAP mode 6-20 cmH2O docusate sodium (Colace) 100 mg PO BID escitalopram oxalate 30 mg PO DAILY FreeStyle Lite Meter (blood-glucose meter) once daily NS FreeStyle Lite Strips (blood sugar diagnostic) As directed qid prn sensor failure, or to confirm glucose NS hydroxyzine pamoate 25 mg PO BEDTIME insulin glargine (Lantus U-100 Insulin) 34 units (0.34 mL) subcut DAILY 90 days insulin syringe-needle U-100 0.5 mL miscellaneous DAILY 90 days lancets (FreeStyle Lancets) 4 times a day prn sensor failure or to confirm glucose dispense as 33 gauge if available lorazepam 1 mg PO BEDTIME PRN pioglitazone 45 mg PO DAILY semaglutide (Ozempic) 2 mg (0.75 mL) subcut QWEEK 4 weeks Ventolin HFA 90 mcg/actuation (albuterol sulfate) 2 puffs inhalation Q6H PRN NS HPI Comments Details: 47-year-old male presents for new patient evaluation of tremor with/ PMH: Depression, Diabetes, BUE, R > L, carpal tunnel syndrome- diagnosed 6 months ago. Pt reports his bilateral hand tremor is a bit worse, more noticeable on the right. It is still intermittent, but now he may spill food while eating (not any specific foods)or his hand may tremor while holding his phone. He continues to use his CPAP regularly, stating he can not sleep without it. Pt is right-handed. ADL status: Ind IADL status: Ind Fine-motor skills: intermittent difficulty with eating. Micrographia: No changes noted. Vision changes: states vision is poor- r/t his diabetes Hypophonia: Sometimes he can speak very softly or will stutter at times Hyposmia: Denies Dysphagia: Denies Drooling: Occasional Orthostatic lightheadedness: Sometimes, transient. Constipation: Sometimes- possibly d/t Ozempic Slowness: Slower overall Freezing episodes: Denies Tremor: as above Involuntary movements: May blink at times Dyskinesia: Denies Stiffness/Spasms: May wake up with RLE cramps?stiffness when sitting for extended periods. Paresthesias: BUE R > L numbness and tingling have resolved s/p right carpal tunnel repair. Gait changes: Denies. Denies falls. Sleep difficulty: Using his CPAP regularly. Always feels tired. Parasomnias: Denies- may have a twitch that his notices. He denies punching/kicking/getting OOB. Memory impairment: Can be forgetful. Can sometimes lose his train of thought. Mood: Mild depression and anxiety. Has a psychiatrist and a therapist. Hallucinations: Denies Usual exercise: No usual exercise. Previous workup: 08/27/23, MR/MR head/brain wo con - There is a nonspecific 2.6 cm focus of bone marrow replacement involving the high right parietal calvarium just posterior to the coronal suture that can be further assessed with a CT study to exclude any aggressive features. - Unremarkable noncontrast MRI of the brain. 10/25/23, CT/CT head/brain wo IV con No acute intracranial abnormalities. 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 This is benign. No aggressive characteristics. [facility] Medical History Type 2 diabetes mellitus associated with morbid obesity Carpal tunnel syndrome, right Panic attack Anxiety Diabetes Mild recurrent major depression Morbid obesity Hypovitaminosis D Depression with anxiety GERD (gastroesophageal reflux disease) Pure hypercholesterolemia Diabetes mellitus Surgical History History of carpal tunnel surgery H/O eye surgery Family History Father Diabetes Hypertension CVD (cardiovascular disease) Mother Anxiety Diabetes Maternal Grandmother Cancer Paternal Uncle Diabetes Stroke Paternal Aunt Diabetes Maternal Grandmother Liver cancer Family/Other FH: mental illness Mental health disorder Social History Housing: Apartment Alcohol intake: current Alcohol intake frequency: holidays/special occasions only Alcohol type: beer Patient Tobacco Use Status: Former Tobacco user Tobacco use type: Cigarette e-Cigarette/Vaping Use: Never Used Second Hand Smoke Exposure: No service: No Current occupational status: employed 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 Expression: Ok Voice: Soft but audible (? baseline) Tremor: Very mild RUE postural tremor noted today. Tone: Very mild right elbow tone. Dyskinesia: None FFM: Very mild decrease is right upper extremity. Foot taps: Very mild decrease in right lower extremity Gait: Slight decreased arm swing, very subtle possible right lower foot drop, steady. Psych: Pleasant affect Psych Mental Status: mental status grossly normal Affect: normal affect Attitude: cooperative Thought process: Normal thought process present Results Reviewed Results Reviewed: Ninety day CPAP compliance report Reliable Respiratory [facility] [address] [place] [address] Alfonso Ruiz 07/21/2024 - 10/18/2024 : 1975 Age: 49 years Compliance Report Usage 07/21/2024 - 10/18/2024 G3 Auto-CPAP [id number] Mode: Auto-CPAP 6.0 - 20.0 cmH2O w/ Smart A: Off, Reslex: 3, Reslex patient: Off Days >= 4 hr:?87/90 (96.67%) Days < 4 hr:?2 (2.22%) Days Other:?1 (1.11%) Best 30 days :?3030 (100%) Avg Usage (days used):?06:51 Avg Pressure:?8.4 cmH20 Avg Pres 95%:?10 cmH20 Avg AHI:?2.2 Avg UL:?0.5 Avg AI:?1.6 Avg HI:?0.6 Avg Leak:?1.9 L/min Avg High Leak time:?00:00 Assessment & Plan Assessment & Plan (1) Tremors of nervous system: Comment: ? early movement d/o, ? CV etiology, ? CTS. 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 Code(s): D16.4 - Benign neoplasm of bones of skull and face Category: Medical Plan Previous workup: Brain MRI report- no findings to account for pt's tremor. 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 Consider f/u imaging at follow-up visit or sooner if clinical s/s develop. For tremor: Continue escitalopram, lorazepam-as managing anxiety symptoms can help to reduce tremor burden. We will request OT eval and treat for hand and tremor therapy. Use wrist splint while sleeping as needed for upper extremity pain or numbness tingling Increase physical therapy as tolerated Future considerations: Trial of anti tremor medication, such as primidone or gabapentin Tremor treatment contraindications: Propranolol/beta-blockers due to insulin dependent diabetes. For VALENTÍN: Continue APAP 6-20 cm H2O with reflex 3 Increase physical activity as tolerated. Consider referral to PT and/or OT after ortho consult. Will follow-up upon review of above and patient to follow-up in clinic in 6 months or sooner prn. Orders: Orders OT Evaluation and Treatment Today R25.1 - Tremor, unspecified Coding Level of Care Code Est Pt Level 4 (01649) Complex EM visit Add On G2211 Diagnoses Tremors of nervous system R25.1 Carpal tunnel syndrome, right G56.01 VALENTÍN (obstructive sleep apnea) G47.33 Osteoma of skull D16.4
== END 2025-01-09 11:39 | disposition home or self-care (01) ==
LOC: HO.HSMS 10:23
PROVIDERS: PCP Internal Medicine; Visit Provider Nurse Practitioner Family
DX: R25.1 Tremor, unspecified (principal); G56.01 Carpal tunnel syndrome, right upper limb; G47.33 Obstructive sleep apnea (adult) (pediatric); D16.4 Benign neoplasm of bones of skull and face
CPT/HCPCS: 99214

== ENCOUNTER → 2025-01-09 10:23 | Outpatient (BNVA) | payer OTHER, SELFPAY | PROVIDERS: PCP Internal Medicine; Visit Provider Nurse Practitioner Family | DX: G25.0 Essential tremor (principal); G56.01 Carpal tunnel syndrome, right upper limb; G47.33 Obstructive sleep apnea (adult) (pediatric); D16.4 Benign neoplasm of bones of skull and face; Z99.89 Dependence on other enabling machines and devices | CPT/HCPCS: 99212 ==

== ENCOUNTER 2025-01-22 07:51 | Outpatient (AMB) | payer OTHER, SELFPAY ==
--- OUTSIDE RECORDS SUMMARY | 2025-01-22 07:55 | XMS_ITS | Clinical Summary ---
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
[2025-01-22 08:02] VITALS: BP 124/78; PULSE 74; O2SAT 98; BMI 43.5
--- NOTE | 2025-01-22 08:02 | A.OFFPC_ITS ---
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: No Accompanied by: Self / Same As Patient Allergies shellfish derived (SHELLFISH DERIVED) Allergy (Severe, Verified 01/22/25 08:11) ANAPHYLAXIS metformin Adverse Reaction (Intermediate, Verified 01/22/25 08:11) diarrhea Medication List - Last Reconciled 01/22/25 by Kymberly Fernandez MD atorvastatin 40 mg PO DAILY 90 days CPAP (CPAP Machine/Device) autoPAP mode 6-20 cmH2O docusate sodium (Colace) 100 mg PO BID escitalopram oxalate 30 mg PO DAILY FreeStyle Lite Meter (blood-glucose meter) once daily NS FreeStyle Lite Strips (blood sugar diagnostic) As directed qid prn sensor failure, or to confirm glucose NS hydroxyzine pamoate 25 mg PO BEDTIME insulin glargine (Lantus U-100 Insulin) 34 units (0.34 mL) subcut DAILY 90 days insulin syringe-needle U-100 0.5 mL miscellaneous DAILY 90 days lancets (FreeStyle Lancets) 4 times a day prn sensor failure or to confirm glucose dispense as 33 gauge if available lorazepam 1 mg PO BEDTIME PRN pioglitazone 45 mg PO DAILY semaglutide (Ozempic) 2 mg (0.75 mL) subcut QWEEK 4 weeks Ventolin HFA 90 mcg/actuation (albuterol sulfate) 2 puffs inhalation Q6H PRN NS Tobacco use date assessed: 09/09/24 Dental Screening Dental Screen Date: 01/22/25 Did you have a dental visit in the last 12 months?: No Did you have a dental problem in the last 6 months where you did not have access to dental care?: No Was dental information given to patient?: No HPI HPI Comments History of Present Illness Details The patient is a 49-year-old male presenting with follow-up for chronic conditions including diabetes, GERD, obstructive sleep apnea on CPAP, hyperlipidemia, and morbid obesity. Diabetes mellitus has been managed with Lantus at 14 units daily and Ozempic, although the patient has not used Ozempic for two weeks due to pharmacy issues. The last HbA1c was 6.7% as of November 26, indicating controlled blood glucose levels. I will prescribe Mounjaro to see if it also helps with the weight. He follows with endocrinology. Hypertension is well-controlled with a current blood pressure of 124/78 mmHg. The patient denies any issues related to blood pressure. Hyperlipidemia is being treated with atorvastatin 40 mg, although the LDL was slightly elevated in August. A follow-up lipid panel is planned in four months to assess cholesterol levels. The patient has a BMI of 43.5, classifying as morbid obesity, but has not gained additional weight recently. The patient uses CPAP for sleep apnea management and reports no adverse effects. Depression with anxiety is managed with citalopram 30 mg and hydroxyzine, with psychiatric follow-up in place. The patient experiences constipation managed with Colace. On vitamin-D supplements for his low vitamin-D. GERD stable with PPIs. The patient has allergies to shellfish and metformin, with the latter causing diarrhea. [facility] Medical History (Updated 01/22/25 @ 09:23 by Kymberly Fernandez MD) Type 2 diabetes mellitus associated with morbid obesity Carpal tunnel syndrome, right Panic attack Anxiety Diabetes Mild recurrent major depression Morbid obesity Hypovitaminosis D Depression with anxiety GERD (gastroesophageal reflux disease) Pure hypercholesterolemia Diabetes mellitus Surgical History History of carpal tunnel surgery H/O eye surgery Family History Father Diabetes Hypertension CVD (cardiovascular disease) Mother Anxiety Diabetes Maternal Grandmother Cancer Paternal Uncle Diabetes Stroke Paternal Aunt Diabetes Maternal Grandmother Liver cancer Family/Other FH: mental illness Mental health disorder Social History Housing: Apartment Alcohol intake: current Alcohol intake frequency: holidays/special occasions only Alcohol type: beer Patient Tobacco Use Status: Former Tobacco user Tobacco use type: Cigarette e-Cigarette/Vaping Use: Never Used Second Hand Smoke Exposure: No service: No Current occupational status: employed 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 Current occupational exposures/hazards: No Cognitive needs: No Hearing needs: No Vision needs: Yes Questionnaire Thrive Questionnaire Date Thrive assessed: 09/09/24 I am a: Patient What is your living situation today?: I have a steady place to live Within the past 12 months, did the food you bought not last and you didn't have the money to get more?: Never true Within the past 12 months, did you worry whether your food would run out before you got money to buy more?: Never true Do you have trouble paying for medicines?: No Do you have trouble getting transportation to medical appointments?: No Do you have trouble paying your heating and electricity bill?: No Do you have trouble taking care of your child, family member or friend?: No Do you have trouble with day-to-day activities such as bathing, preparing meals, shopping, managing finances, etc.?: No Are you currently unemployed and looking for a job?: No Are you interested in more education?: No Please select the resources that you would like help with: None Currently or been in a relationship where the following occur: I choose not to answer THRIVE Score: 0 UMAIR-7 AMB Questionnaire UMAIR-7 Date UMAIR - 7 assessed: 09/09/24 Source: Developed by Drs. Nestor Amezcua, Cheryl Rosa, Martinez Cee and colleagues, with an educational mary from [employer]. Review of Systems Const All systems reviewed & are unremarkable except as noted in HPI and below Card Denies chest pain at rest, Denies chest pain with activity, Denies edema, Denies irregular heart rhythm, Denies claudication, Denies dyspnea, Denies dyspnea on exertion, Denies orthopnea, Denies paroxysmal nocturnal dyspnea and Denies slow heart rate Resp Denies cough, Denies dyspnea and Denies dyspnea on exertion Physical exam (Primary Care) Vital Signs: Last Vital Signs Pulse 74 01/22/25 08:02 BP 124/78 01/22/25 08:02 Pulse Ox 98 01/22/25 08:02 Oxygen Delivery Method Room Air 01/22/25 08:02 BMI result Body Mass Index 43.5 BMI Assessment/Plan discussion: High BMI High, discussed plan: lifestyle, weight reduction, dietary and physical activity Tobacco/Smoking Status: Tobacco use Status Tobacco use date assessed 09/09/24 01/22/25 08:06 Patient Tobacco Use Status Former Tobacco user 01/22/25 08:06 Tobacco use type Cigarette 01/22/25 08:06 e-Cigarette/Vaping Use Never Used 01/22/25 08:06 Thrive Assessment: Date of Thrive Assessment Date Thrive assessed 09/09/24 01/22/25 08:06 Currently or been in a relationship where the following occur: I choose not to answer Resp Effort & Inspection: normal respiratory effort Auscultation: clear to auscultation bilaterally Cardio Jugular venous distension: no JVD Rate: regular rate Rhythm: regular rhythm Heart sounds: S1 normal heart sound present and S2 normal heart sound present Extrem General: Yes full ROM Coding Level of Care Code Est Pt Level 4 (99576) Complex EM visit Add On G2211 Diagnoses Type 2 diabetes mellitus with hyperglycemia, with long-term current use of insulin E11.65; Z79.4 Diabetes mellitus type: type 2 Diabetes mellitus fci insulin use: with fci use Diabetes mellitus complication status: with hyperglycemia Mild recurrent major depression F33.0 Pure hypercholesterolemia E78.00 Morbid obesity E66.01 Hypovitaminosis D E55.9 VALENTÍN (obstructive sleep apnea) G47.33 Gastroesophageal reflux disease, unspecified whether esophagitis present K21.9 Esophagitis presence: esophagitis presence not specified Chronic idiopathic constipation K59.04 Time Spent (min) 22 Assessment & Plan Assessment & Plan (1) Diabetes mellitus: Code(s): E11.9 - Type 2 diabetes mellitus without complications Category: Medical Qualifiers: Diabetes mellitus type: type 2 Diabetes mellitus fci insulin use: with fci use Diabetes mellitus complication status: with hyperglycemia Qualified Code(s): E11.65 - Type 2 diabetes mellitus with hyperglycemia; Z79.4 - nursing home (current) use of insulin (2) Mild recurrent major depression: Code(s): F33.0 - Major depressive disorder, recurrent, mild Category: Medical (3) Pure hypercholesterolemia: Code(s): E78.00 - Pure hypercholesterolemia, unspecified Category: Medical (4) Morbid obesity: Code(s): E66.01 - Morbid (severe) obesity due to excess calories Category: Medical (5) Hypovitaminosis D: Code(s): E55.9 - Vitamin D deficiency, unspecified Category: Medical (6) VALENTÍN (obstructive sleep apnea): Code(s): G47.33 - Obstructive sleep apnea (adult) (pediatric) Category: Medical (7) GERD (gastroesophageal reflux disease): Code(s): K21.9 - Gastro-esophageal reflux disease without esophagitis Category: Medical Qualifiers: Esophagitis presence: esophagitis presence not specified Qualified Code(s): K21.9 - Gastro-esophageal reflux disease without esophagitis (8) Chronic idiopathic constipation: Code(s): K59.04 - Chronic idiopathic constipation Category: Medical Plan Plan Patient was informed and verbally consented to the use of an ambient scribe for clinic note documentation during this visit. 1. Diabetes Mellitus The patient's diabetes is managed with Lantus and Ozempic, although there has been a lapse in Ozempic use due to pharmacy issues. The HbA1c is 6.7%, indicating good control. 2. Hypertension Hypertension is well-controlled with a blood pressure of 124/78 mmHg. 3. Hyperlipidemia Hyperlipidemia is managed with atorvastatin 40 mg, with a follow-up lipid panel planned in four months. 4. Morbid Obesity The patient has a BMI of 43.5, indicating morbid obesity, but has maintained stable weight. 5. Sleep Apnea Sleep apnea is managed with CPAP, with no reported adverse effects. 6. Depression With Anxiety Depression with anxiety is treated with citalopram and hydroxyzine, with psy chiatric follow-up in place. 7. Constipation Constipation is managed with Colace. 8. Allergy To Shellfish And Metformin The patient has allergies to shellfish and metformin, with metformin causing diarrhea. Medications: New tirzepatide (Mounjaro) for 4 weeks 2.5 mg (0.5 mL) subcut QWEEK 2 mL 0RF 4 weeks E11.65 - Type 2 diabetes mellitus with hyperglycemia, Z79.4 - roasterman (current) use of insulin
== END 2025-01-22 08:23 | disposition home or self-care (01) ==
LOC: HO.HMCH 07:52
PROVIDERS: PCP Internal Medicine; Visit Provider Internal Medicine
DX: E11.65 Type 2 diabetes mellitus with hyperglycemia (principal); Z79.4 Long term (current) use of insulin; E66.01 Morbid (severe) obesity due to excess calories; Z68.41 Body mass index [BMI] 40.0-44.9, adult; F33.0 Major depressive disorder, recurrent, mild; E78.00 Pure hypercholesterolemia, unspecified; E55.9 Vitamin D deficiency, unspecified; G47.33 Obstructive sleep apnea (adult) (pediatric); K21.9 Gastro-esophageal reflux disease without esophagitis; K59.04 Chronic idiopathic constipation

== ENCOUNTER → 2025-01-22 07:51 | Outpatient (BNVA) | payer OTHER, SELFPAY | PROVIDERS: PCP Internal Medicine; Visit Provider Internal Medicine | DX: E11.65 Type 2 diabetes mellitus with hyperglycemia (principal); F33.0 Major depressive disorder, recurrent, mild; E78.00 Pure hypercholesterolemia, unspecified; E66.01 Morbid (severe) obesity due to excess calories; Z68.41 Body mass index [BMI] 40.0-44.9, adult; E55.9 Vitamin D deficiency, unspecified; G47.33 Obstructive sleep apnea (adult) (pediatric); K21.9 Gastro-esophageal reflux disease without esophagitis; K59.04 Chronic idiopathic constipation; F41.8 Other specified anxiety disorders; I10 Essential (primary) hypertension; Z79.4 Long term (current) use of insulin; Z79.85 Long-term (current) use of injectable non-insulin antidiabetic drugs; Z79.899 Other long term (current) drug therapy; Z99.89 Dependence on other enabling machines and devices | CPT/HCPCS: 99212 ==

== ENCOUNTER 2025-03-05 08:44 | Outpatient (AMB) | payer OTHER, SELFPAY ==
--- NOTE | 2025-03-05 08:50 | A.OFFVIS_ITS ---
Vital Signs 03/05/25 08:51 Height 5 ft 10 in Weight 304 lb 3.806 oz BMI 43.6 BP 122/76 Blood Pressure Location Rt brachial Position Sitting Pulse 75 Pulse Source Pulse Oximeter Pulse Oximetry (%) 98 Intake Visit Reasons: DM Intake Note: Patient presents today for a follow-up on Type 2 Diabetes Mellitus: Last Diabetic eye exam was on: 04/21/24 Last Podiatry exam was on: Patient does not see a Fire Coordinator Most recent HbA1c: 7.3%, 03/05/2025 Random Glucose- 118 mg/dL, Today Sash Installer Required: No Accompanied by: Self / Same As Patient Allergies shellfish derived (SHELLFISH DERIVED) Allergy (Severe, Verified 03/05/25 09:23) ANAPHYLAXIS metformin Adverse Reaction (Intermediate, Verified 03/05/25 09:23) diarrhea HPI Comments Details: 49 year male who is seen in f/u for T2DM. Initially diagnosed with T2DM approx 2019. Current regimen: Lantus 34 units Pioglitazone 45 mg daily On mounjaro 2.5mg weekly. Switched from Semaglutide 2.0 mg weekly end of Dec by pcp. He is tolerating it out without adverse effects A1C has increased to 7.3% from 6.7% He did apply for an omnipod has not heard insurance decision Metformin caused diarrhea Jardiance caused UTI Glipizide caused hypoglycemia Dexcom 7 sensor on but not transmitting. He has freestyle lite meter, his lancing device is broken No interval hypoglycemia. Any prior episodes treated with juice Checks sugar after to ensure it is rising. Has eyes checked several times per year, has proliferative diabetic retinopathy hypertensive changes in the eyes: is being followed regularly + neuropathy: has numbness tingling and pain, does not see podiatry. No nephropathy, not on KARMA/ARB Has HLD, on statin. He has orders for fasting blood work in EHR. Denies CAD. Denies symptoms of chest pain, dyspnea or claudication. Uses CPAP regularly. Diet:trys to balance, reports stress eating ROS CONSTITUTIONAL: Denies weight loss, fever and chills. HEENT: Denies changes in vision and hearing. RESPIRATORY: Denies SOB and cough. CV: Denies palpitations and CP GI: Denies abdominal pain, nausea, vomiting and diarrhea. : Denies dysuria and urinary frequency. MSK: Denies new myalgia and joint pain. SKIN: Denies rash and pruritus. NEUROLOGICAL: Denies headache PSYCHIATRIC: Denies recent changes in mood. PHYSICAL EXAM: GENERAL: Alert and oriented x 3. NAD EYES: EOMI. Anicteric. HENT: Moist mucous membranes. No scleral icterus. No cervical lymphadenopathy. LUNGS: Clear to auscultation bilaterally. CARDIOVASCULAR: Regular rate and rhythm. No murmur. No JVD. ABDOMEN: Soft, non-tender +bs EXTREMITIES: No edema. Non-tender. SKIN: No rashes or lesions. Warm. NEUROLOGIC: No focal neurological deficits. CN II-XII grossly intact PSYCHIATRIC: Cooperative. Appropriate mood and affect [facility] Medical History Type 2 diabetes mellitus associated with morbid obesity Carpal tunnel syndrome, right Panic attack Anxiety Diabetes Mild recurrent major depression Morbid obesity Hypovitaminosis D Depression with anxiety GERD (gastroesophageal reflux disease) Pure hypercholesterolemia Diabetes mellitus Surgical History History of carpal tunnel surgery H/O eye surgery Family History Father Diabetes Hypertension CVD (cardiovascular disease) Mother Anxiety Diabetes Maternal Grandmother Cancer Paternal Uncle Diabetes Stroke Paternal Aunt Diabetes Maternal Grandmother Liver cancer Family/Other FH: mental illness Mental health disorder Social History Housing: Apartment Alcohol intake: current Alcohol intake frequency: holidays/special occasions only Alcohol type: beer Patient Tobacco Use Status: Former Tobacco user Tobacco use type: Cigarette e-Cigarette/Vaping Use: Never Used Second Hand Smoke Exposure: No service: No Current occupational status: employed 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 Current occupational exposures/hazards: No Cognitive needs: No Hearing needs: No Vision needs: Yes Physical Exam Vital Signs: Last Vital Signs Pulse 75 03/05/25 08:51 BP 122/76 03/05/25 08:51 Pulse Ox 98 03/05/25 08:51 BMI result Body Mass Index 43.6 Results AMB Hemoglobin A1c AMB Hemoglobin A1c 7.3 % Last Edit by SARANYA Reece on 03/05/25 09:22 Results Reviewed Results Reviewed: Laboratory Last Values Glucose (Clinic) 118 mg/dL (60-115) H 03/05/25 08:53 Assessment & Plan Assessment & Plan (1) Type 2 diabetes mellitus associated with morbid obesity: Code(s): E11.69 - Type 2 diabetes mellitus with other specified complication; E66.01 - Morbid (severe) obesity due to excess calories Category: Medical Plan 49 year old with diabetes for follow up Diabetes is currently not controlled. Will try to ramp up mounjaro dose to get to prior ozempic equivalent. He will start 5mg with his next injection He has applied for an omnipod. His CGM has not been functioning. He is referred to CDE. If he does decide on omnipod will transfer care Treat any hypoglycemia by rules of 15s Follow up in 3 months for A1C, CDE in meantime. 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
[2025-03-05 08:51] VITALS: BP 122/76; PULSE 75; O2SAT 98; BMI 43.6
[2025-03-05 08:57] LABS: Glucose, Whole Blood 118 mg/dL (60-115)
--- OUTSIDE RECORDS SUMMARY | 2025-03-05 09:17 | XMS_ITS | Clinical Summary ---
Author Organization [employer] Address [address] [place] [address] Care Team Providers Care Fishing Accessories Maker Name Role Phone Unavailable Primary Care Provider [...] patient's age to complete this topic Insurance [facility] STANDARD
== END 2025-03-05 09:11 | disposition home or self-care (01) ==
LOC: HO.ENCR 08:45
PROVIDERS: PCP Internal Medicine; Visit Provider Internal Medicine
DX: E11.69 Type 2 diabetes mellitus with other specified complication (principal); E66.01 Morbid (severe) obesity due to excess calories

== ENCOUNTER → 2025-03-05 08:44 | Outpatient (BNVA) | payer OTHER, SELFPAY | PROVIDERS: PCP Internal Medicine; Visit Provider Internal Medicine | DX: E11.69 Type 2 diabetes mellitus with other specified complication (principal); E66.01 Morbid (severe) obesity due to excess calories | CPT/HCPCS: 82947; 83036; 99212 ==